=== PATIENT | female | born 1955 | race Caucasian/White ===

== ENCOUNTER → 2017-05-12 13:42 | Outpatient (CLI) | payer MEDICARE, MEDICAID, SELFPAY ==
--- NOTE | 2017-05-12 13:58 | MRI_ITS ---
STUDY: MRI LUMBAR SPINE WITHOUT CONTRAST REASON FOR EXAM: Female, 61 years old. Back and leg pain. Bilateral leg weakness. History of breast cancer with bone metastases TECHNIQUE: Standardized fat and water weighted pulse sequences were obtained in the coronal, sagittal and axial planes. COMPARISON: Moderate scan on August 13, 2016 FINDINGS: There is metastatic disease involving the vertebral bodies of T11, T12 and L1, with partial compression fracture deformity of T12 and L1 due to the metastatic disease. There is soft tissue extension anteriorly to the vertebral bodies of T12 and T11. There is extension of the metastatic disease into the spinal canal at T12 and L1, with compression of the conus medullaris and causing severe stenosis of the spinal canal (sagittal STIR series 5 image 9). The metastatic disease involves the bilateral iliopsoas muscles (axial T2 series 6 image 75). The patient is status post kyphoplasty at T11 There is an exaggerated lumbar lordosis. There is levoscoliosis. The conus medullaris terminates at the T12-L1 level L1-2: There is endplate spondylosis. There is bilateral facet arthrosis. Normal spinal canal and neural foramen. L2-3: There is endplate spondylosis. There is a Schmorl node in the superior endplate of L3. There is an annular bulge. There is bilateral facet arthrosis. Normal spinal canal. There is bilateral foraminal stenosis. L3-4: There is endplate spondylosis. There is disc space narrowing with an annular bulge. There is bilateral facet arthrosis. There is mild thecal sac stenosis. There is bilateral foraminal stenosis with impingement of the L3 nerve roots L4-5: There are Schmorl nodes in the corresponding endplates. There is bilateral facet arthrosis. There is disc desiccation. Normal spinal canal and neural foramen L5-S1: Normal endplates. Normal disc height, hydration and morphology. There is bilateral facet arthrosis. Normal central canal and bilateral lateral recesses. Normal bilateral intervertebral neural foramina. Normal visualized sacral ala. There is moderate paraspinal muscular atrophy. There is a splenomegaly MRI/Spine Lumbar (Routine) IMPRESSION: Metastatic disease with pathologic fractures as described above, involving the vertebral bodies of T12 and L1, with extension into the soft tissues anterior to the spine and also into the bilateral psoas muscles and extension into the spinal canal causing compression of the cauda equina and conus medullaris Levoscoliosis with exaggerated lumbar lordosis. Multilevel degenerative disease and multilevel facet arthrosis. L3-4 mild thecal sac stenosis. Bilateral foraminal stenosis with impingement of the L3 nerve roots N.B. : The above information has been verbally conveyed by Rashid Amador MD, FACR to Dr. Azam Valdez, Referring Physician, on 05/12/2017 15:24:02 (ET). Electronically Signed: Rashid Amador MD, FACR at 15:07 EST , Service support , N.B. : The above information has been verbally conveyed by Rashid Amador MD, FACR to Dr. Azam Valdez, Referring Physician, on 05/12/2017 15:24:02 (ET).
== END ==
PROVIDERS: Family Provider Family Medicine; PCP Family Medicine; Visit Provider Anesthesiology Pain Medicine
DX: M54.9 Dorsalgia, unspecified (principal); M79.606 Pain in leg, unspecified
CPT/HCPCS: 72148

== ENCOUNTER 2017-05-12 17:00 | Emergency (ER) | payer MEDICARE, MEDICAID, SELFPAY ==
[2017-05-12 17:01] VITALS: BP 135/62; PULSE 84; RESP 16; TEMP 37.1; O2SAT 98; BMI 20.9
--- NOTE | 2017-05-12 17:51 | ED.VISSUMM ---
- ER Visit Summary Date of Service: 05/12/17 Chief Complaint: Back pain History of Present Illness: The patient is a 61 F who has a history of breast cancer. Currently she is on tamoxifen therapy. Last year she had a pathologic fracture of her right femur. For the past 2 months the patient states that due to back pain she essentially has been in bed. States she has been able to stand but is extremely painful for her. She notes it is painful just even to sit up. She notes some occasional numbness over the right hip. She notes pain alternating between the right and left hips She has been urinating in a mars jar and states that she feels like she empties her bladder. She has been in pain management for back pain and due to increasing pain and now reported weakness in the legs the patient had an MRI performed today. This showed pathologic fractures of T12 and L1 with extension of the fractures into the soft tissues anterior to the spine and the bilateral psoas muscles as well as extension into the canal causing compression of the cauda equina and conus medullaris. Patient was sent to the emergency department for further treatment. Physical Examination: Afebrile vital signs are stable Gen: Well-nourished well-developed Head: Normocephalic atraumatic Eyes: Perrl EOMI ENT: TMs clear no rhinorrhea moist mucous membranes Neck: Supple no lymphadenopathy no JVD nontender CVS: Regular rate rhythm no murmurs normal S1-S2 Respiratory: No distress clear to auscultation bilaterally chest nontender Abdomen: Soft nontender nondistended normal bowel sounds no masses Back: Painful range of motion Extremity: Nontender no edema Skin: Normal color no rash Neuro: alert orientated ?3 CN II-XII intact there is no saddle anesthesia. There is normal perineal sensation and rectal tone. Patellar reflex is normal. Psych: Normal affect normal mood Test Results: MRI was reviewed. Basic blood work obtained. She is not neutropenic. Potassium 3.1. Urinalysis 10-25 white cells without bacteria. Lactic acid is 3.1. This has an unclear etiology. Emergency Department Course and Treatment: IV was established and the patient received fluids, Decadron, Dilaudid, and Zofran. I spoke with radiation oncology who is aware of the patient. Plan is to transfer to [facility]. Patient was asked to urinate and could not. Straight cath was performed and only 40 cc came out. At this point I do not see obvious evidence of cauda equina. Impression: 1. Metastatic breast cancer 2. Pathologic fractures of T12 and L1 with resultant cauda equina compression This note was generated with [employer] dictation software. It may contain incorrect words, spelling, and punctuation that were not noted in review of the chart prior to signing ED Disposition - Plan for ED Patient: Chief Complaint: Back Referrals: Liban Gomez DO [Primary Care Provider] -
[2017-05-12] MEDS: 0.9% Normal Saline 1,000 ML 150 ML IV (18:02)
[2017-05-12] MEDS: HYDROmorphone 1 MG/ML Syringe IV ×2 (18:05→20:32)
[2017-05-12] MEDS: Ondansetron 4 MG/2 ML Vial IV (18:05)
[2017-05-12 18:21] LABS: Bacteria 0 SEEN /hpf (None Seen); Mucous, Urine 0 SEEN /hpf (<or=2+)
[2017-05-12 18:24] LABS: Hematocrit 29.8 % (37-47); Hemoglobin 9.6 g/dl (12.0-15.0); Mean Corp Hgb Conc 32.2 g/gl (32-36); Mean Corpuscular Hgb 28.2 pg (27.0-32.0); Mean Corpuscular Volume 87.4 fL (81-99); Mean Platelet Vol. 8.7 fl (6.2-12.0); Platelet Count 222 K/mm3 (150-450); RBC Distribution Width CV 14.6 % (11.6-14.6); RBC Distribution Width SD 44.6 fl (35.1-43.9); Red Blood Count 3.41 M/mm3 (4.2-5.4); White Blood Count 4.9 K/mm3 (4.4-11.0)
[2017-05-12 18:25] LABS: Scan Indicated on CBC? Y/N NO
[2017-05-12 18:26] LABS: Color, Urine Yellow (Yellow); Glucose, Dipstick Normal (Normal); Ketone-Dipstick 5 mg/dl (Negative); Leukocyte Esterase-Dipstick 100 /ul (Negative); Nitrite-Dipstick Negative (Negative); Occult Blood-Urine 10 /ul (Negative); Protein-Dipstick 30 mg/dl (Negative); Urine Clarity Sl. Cloudy (Clear); Urine Urobilinogen 8 mg/dl (Normal)
[2017-05-12 18:33] LABS: Urine Bilirubin Dipstick 1 mg/dL (Negative)
[2017-05-12 18:34] LABS: White Blood Cells 10-25 SEEN /hpf (0-5)
[2017-05-12 18:35] LABS: Amorphous Sediment 1+ URATE; Calcium Oxalate Crystals Ur RARE /hpf (<or=2+); Red Blood Cells-Urine 0-5 SEEN /hpf (0-5); Squamous Epithelial Cells - UA 0-5 SEEN /hpf (5-10); Transitional Epithelial - Ur 0-5 SEEN /hpf (0-5)
[2017-05-12 18:35] LABS: Partial Thromboplast Time 31.6 Seconds (24.1-36.2); Prothrombin Time (Protime)PT. 13.1 SECONDS (11.7-14.9)
[2017-05-12 18:36] LABS: Albumin, Serum 2.8 g/dL (3.2-5.0); BUN 15 mg/dL (7-18); BUN/Creat Ratio 13.3 RATIO (10-20); Creatinine, Serum 1.13 mg/dL (0.55-1.02); EST Glomerular Filtration Rate 52 mL/min (>60); Est Glom Filt Rate - Afr Amer 63 mL/min (>60); Estimated Creatinine Clearance 56.16 ml/min; Glucose 96 mg/dL (70-110); Protein, Total 7.3 g/dL (6.4-8.2)
[2017-05-12 18:37] LABS: ALB/GLOB Ratio 0.6 RATIO (0.9-2.4); AST(SGOT) 46 U/L (15-37); Alanine Aminotransfer ALT/SGPT 19 U/L (13-56); Alkaline Phosphatase 81 U/L (45-117); Anion Gap 7 (5-15); Calcium,Total 8.8 mg/dL (8.5-10.1); Chloride 105 mmol/L (98-107); Globulin 4.5 g/dL (2.2-4.2); Potassium 3.1 mmol/L (3.5-5.1); Sodium Level 141 mmol/L (136-145)
[2017-05-12 19:10] LABS: Lactic Acid 3.1 mmol/L (0.4-2.0)
--- NOTE | 2017-05-12 19:10 | ED.RN ---
lactic 3.[address] called [address] lab[address] dr duran aware
[2017-05-12 19:27] VITALS: BP 107/64; PULSE 68; RESP 16; O2SAT 96
--- NOTE | 2017-05-12 19:56 | ED.RN ---
[facility] conservation coordinator called and stated the pt is accepted under dr inge wallis and no report need called.pt is to be transported to [facility] emergency room.
--- NOTE | 2017-05-12 20:03 | ED.RN ---
dr duran aware of transferr and accepting md of dr alcazar.
[2017-05-12 20:35] VITALS: BP 96/72; PULSE 65; RESP 16; O2SAT 99
[2017-05-12 22:17] LABS: Reflex Lactate? Y
== END 2017-05-12 20:37 | disposition short-term general hospital (02) ==
LOC: ED 18:21
PROVIDERS: Emergency Provider Emergency Medicine; Family Provider Family Medicine; PCP Family Medicine
DX: C50.919 Malignant neoplasm of unspecified site of unspecified female breast (principal); M84.48XA Pathological fracture, other site, initial encounter for fracture; Z87.311 Personal history of (healed) other pathological fracture; Z79.899 Other long term (current) drug therapy; M79.606 Pain in leg, unspecified; M54.9 Dorsalgia, unspecified
CPT/HCPCS: 72148; 80053; 81001; 83605; 85027; 85610; 85730; 96361; 96374; 96375; 96376; 99285; J7030; P9612; J2405

== ENCOUNTER → 2018-01-11 11:32 | Outpatient (CLI) | payer MEDICARE, MEDICAID, SELFPAY ==
--- NOTE | 2018-01-11 11:40 | CT_ITS ---
STUDY: CT CHEST WITH CONTRAST REASON FOR EXAM: Female, 62 years old. MEDIASTINAL ADENOPATHY. HX OF BREAST CNACER WITH METS TO BRAIN AND BONE. THORACIC RODDING RADIATION DOSAGE (If Supplied By Facility): CTDIvol = ( 13.25 ) mGy, DLP = ( 328.61 ) mGycm TECHNIQUE: Transaxial imaging was performed following intravenous administration of 100ML ml of Isovue 300 contrast material. Individualized dose optimization techniques were used for this CT. COMPARISON: None. FINDINGS: There is hyperinflation of the lungs consistent with chronic obstructive lung disease (COPD). Subpleural interstitial thickening is seen in the right middle lobe and anterior segment of right upper lobe most likely due to prior radiation. There is no demonstrated pleural abnormality. Normal heart and pericardium. There is a borderline enlarged lymph node in the anterior mediastinum measures approximately 1.6 x 1.1 cm has nonspecific appearance. Normal hilar regions. Normal enhanced pulmonary arteries. Normal aorta arch and descending thoracic aorta. Lytic lesions are seen in the vertebral bodies of T12 and L1 consistent with metastases. Bone cement is seen in the vertebral body of T11. Hardware is seen at T8-T9 and T10 extending to the upper lumbar spine is in good position. There is severe atrophy of the pancreas. CT/Chest WITH Contrast IMPRESSION: There is a borderline enlarged lymph node in the anterior mediastinum measures approximately 1.6 x 1.1 cm has nonspecific appearance. Electronically Signed: Martinez Ruiz MD at 12:36 EDT Tel , Service support ,
[2018-01-11 12:11] LABS: CREATININE FINGERSTICK 0.6 mg/dL (0.55-1.02); EGFR FINGERSTICK > 60.0000 mL/min (>60)
== END ==
PROVIDERS: Family Provider Family Medicine; PCP Family Medicine; Referring Provider Internal Medicine Critical Care Medicine; Visit Provider Internal Medicine Critical Care Medicine
DX: C50.912 Malignant neoplasm of unspecified site of left female breast (principal); R59.0 Localized enlarged lymph nodes
CPT/HCPCS: 71260; Q9967

== ENCOUNTER 2018-01-28 15:01 | Inpatient (IN) | payer MEDICARE, SELFPAY ==
[2018-01-28 15:01] VITALS: BP 117/69; PULSE 71; RESP 18; TEMP 37.3; O2SAT 99; BMI 21.1
--- NOTE | 2018-01-28 15:17 | RAD_ITS ---
STUDY: X-RAY - RIGHT FOOT CLINICAL: Female, 62 years old. Injury. Evaluate for foreign body (glass). TECHNIQUE: 3 view(s) of the foot. COMPARISON: None. FINDINGS: There is generalized osteopenia. There is superior and inferior calcaneal spurs. Normal visualized subtalar, talonavicular, calcaneocuboid, tarsal and tarsometatarsal articulations. Normal metatarsi. There is osteoarthrosis of the metatarsophalangeal and interphalangeal joints with hammertoe deformities. The soft tissue structures are unremarkable. No radiopaque foreign body is present. RAD/Foot min 3 Views IMPRESSION: Osteoarthritic changes with no radiopaque foreign body identified. Electronically Signed: Brian Hogan MD at 15:56 EDT , Service support ,
[2018-01-28 15:59] LABS: Absolute Lymphocyte Count 0.52 X10^3/ul (0.83-4.51); Absolute Neutrophil Count 4.8 X10^3/uL (2.0-7.7); Basophil# 0.01 X10^3/uL; Basophil% 0.2 % (0-1); Eosinophil# 0.07 X10^3/uL; Eosinophils% 1.3 % (0-5); Hematocrit 31.8 % (37-47); Hemoglobin 10.2 g/dl (12.0-15.0); Lymphocyte # 0.52 X10^3/ul (4.0); Lymphocyte % 9.3 % (19-41); Mean Corp Hgb Conc 32.1 g/gl (32-36); Mean Corpuscular Hgb 32.1 pg (27.0-32.0); Mean Platelet Vol. 8.3 fl (6.2-12.0); Monocyte# 0.19 X10^3/uL; Monocyte% 3.4 % (0-10); Neutrophil # 4.78 X10^3/uL (2.7-7.7); Neutrophil % 85.3 % (47-70); Platelet Count 179 K/mm3 (150-450); RBC Distribution Width CV 13.4 % (11.6-14.6); RBC Distribution Width SD 48.5 fl (35.1-43.9); Red Blood Count 3.18 M/mm3 (4.2-5.4); White Blood Count 5.6 K/mm3 (4.4-11.0)
[2018-01-28 16:00] LABS: Differential Indicated SCAN CRITERIA MET; POSITIVE COUNT NO; POSITIVE DIFFERENTIAL YES; POSITIVE MORPHOLOGY NO
[2018-01-28 16:05] LABS: Anion Gap 6 (5-15); BUN 9 mg/dL (7-18); BUN/Creat Ratio 11.7 RATIO (10-20); Calcium,Total 7.9 mg/dL (8.5-10.1); Chloride 104 mmol/L (98-107); Creatinine, Serum 0.77 mg/dL (0.55-1.02); EST Glomerular Filtration Rate 81 mL/min (>60); Est Glom Filt Rate - Afr Amer 97 mL/min (>60); Estimated Creatinine Clearance 79.74 ml/min; Glucose 70 mg/dL (74-106); Potassium 3.8 mmol/L (3.5-5.1); Sodium Level 137 mmol/L (136-145)
[2018-01-28 16:23] LABS: Differential Comment SCANNED
--- NOTE | 2018-01-28 16:34 | ED.VISSUMM ---
- ER Visit Summary Date of Service: 01/28/18 Chief Complaint: Right foot pain History of Present Illness: The patient is a 62 F who presents with right foot pain. 2 days ago she thought she stepped on a small piece of glass. She is a needle and felt something hard there but was uncertain if she removed it or not. Today she developed increased pain redness and swelling of the right foot. The nurse saw her at her assisted living and advised that she be evaluated here in the emergency department. She has no systemic symptoms. No fevers chest pain shortness of breath nausea vomiting diarrhea. She is not diabetic. She does have a history of metastatic breast cancer and chronic back pain. Physical Examination: Afebrile temperature 99.1 vitals unremarkable Moist mucous membranes Heart regular rate and rhythm Lungs clear There is edema and erythema of the right foot. It is hot to the touch. The erythema extends along the posterior medial leg to about the knee. There is a small open wound on the heel. There is no drainage. No fluctuance. No palpable foreign body. Test Results: Foot x-ray shows no foreign body. I also performed a [id number] ultrasound did not appreciate any obvious foreign body. Labs unremarkable except anemia. Emergency Department Course and Treatment: Patient clinically appears well with stable vitals. She does not have leukocytosis. However I am worried about the rapid progression of her cellulitis and the fact that it extends from the foot to about the level of the knee. Therefore I did feel hospitalization appropriate. Patient was given IV Unasyn here. She was discussed with hospitalist and will be admitted. Treatment Plan: [] Disposition: Admit Impression: Cellulitis This note was generated with [employer] dictation software. It may contain incorrect words, spelling, and punctuation that were not noted in review of the chart prior to signing ED Disposition - Plan for ED Patient: Chief Complaint: Cellulitis Referrals: Liban Gomez DO [Primary Care Provider] -
[2018-01-28 17:33] VITALS: BP 94/54; PULSE 75; RESP 16; O2SAT 98
[2018-01-28 17:45] VITALS: BMI 21.9; BMI 22.0
[2018-01-28 18:00] VITALS: PULSE 60; RESP 18; O2SAT 93
[2018-01-28 18:46] VITALS: BP 111/59; PULSE 56; RESP 18; TEMP 37.2; O2SAT 94
[2018-01-28] MEDS: oxyCODONE 5 MG Tablet PO (19:22)
[2018-01-28] MEDS: Enoxaparin 40 MG/0.4 ML Syringe SC (19:23)
[2018-01-28] MEDS: Gabapentin 300 MG Capsule PO (19:23)
--- NOTE | 2018-01-28 20:00 | PCM.HP.STD ---
Problem List (1) Compression fracture of body of thoracic vertebra Status: Chronic (2) Carcinoma of breast metastatic to bone Status: Chronic Qualifiers: (3) Anemia Status: Chronic Qualifiers: (4) Dyslipidemia Status: Chronic (5) Cellulitis Status: Acute Qualifiers: Site of cellulitis: extremity Site of cellulitis of extremity: lower extremity Laterality: right Qualified Code(s): L03.115 - Cellulitis of right lower limb History of Present Illness Date of Admission: 01/28/18 Chief Complaint: Cellulitis The patient is a 62 year old F with a PMH as above presenting with 2 days of foot pain and 1 days of swelling and redness. [place] the [place] and though she stepped on something and used a non-sterile needle to try and dig it out. She denies removing anything 2 days ago when this happened. Today she woke up and noticed that her foot was red and swollen starting at the area she dug into with a needle. The pain goes up her anterior garcia 4-5 inches. She came to the ER where she was started on unasyn and admitted for observation given the pain, and the rapid progression of symptoms. She was otherwise stable, afebrile, no chills. No leukocytosis. 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 per cath 10/22 Hx of breast cancer (Chronic) Medical History: Medical History (Last Reviewed 01/11/18 @ 10:09 by Yadira Garcia) Compression fracture of body of thoracic vertebra (Chronic) M48.54XA Carcinoma of breast metastatic to bone (Chronic) C50.919, C79.51 Anemia (Acute) D64.9 Osteoarthritis of knee, unspecified (Acute) M17.9 Dyslipidemia (Chronic) E78.5 NSTEMI (non-ST elevated myocardial infarction) (Chronic) I21.4 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 per cath 10/22 Hx of breast cancer (Chronic) Z85.3 Chest pain (Acute) R07.9 Allergies povidone-iodine [From Betadine] Adverse Reaction (Severe, Verified 01/28/18 15:03) Other BROKE OUT INTO BLISTERS soap [From Betadine] Adverse Reaction (Severe, Verified 01/28/18 15:03) Other BROKE OUT INTO BLISTERS Home Medications: Ambulatory Orders Medication Instructions Recorded melatonin 3 mg tablet 3 mg PO HS PRN 01/06/18 omeprazole 40 mg capsule,delayed 40 mg PO DAILY 01/06/18 release sennosides 8.6 mg tablet 17.2 mg PO LUNCH tab 01/06/18 oxycodone ER 40 mg tablet,crush 40 mg PO Q8H 01/11/18 resistant,extended release 12 hr Gabapentin [Neurontin] 300 mg PO TID 01/28/18 Ibranch 1 tab PO DAILY 01/28/18 Surgical History: Surgical History (Last Reviewed 01/11/18 @ 10:09 by Yadira Garcia) History of tonsillectomy and adenoidectomy (Resolved) Z98.890 Aftercare following left ankle joint replacement surgery (Resolved) Z47.1, Z96.662 History of partial mastectomy of both breasts (Resolved) Z90.13 History of breast biopsy (Resolved) Z98.890 Surgical History: - - Left Achilles tendon surgery, lumpectomy of both breasts Psychiatric History: No pertinent psych hx 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 Smoking Status: Former smoker - *Family History Maternal Family History: Family History (Last Reviewed 01/11/18 @ 10:09 by Yadira Garcia) Mother Hypertension COPD (chronic obstructive pulmonary disease) Father Cancer Grandmother Breast cancer Grandfather CVA (cerebral vascular accident) History Items: No pertinent history Paternal Family History: Family History (Last Reviewed 01/11/18 @ 10:09 by Yadira Garcia) Mother Hypertension COPD (chronic obstructive pulmonary disease) Father Cancer Grandmother Breast cancer Grandfather CVA (cerebral vascular accident) History Items: No pertinent history Sibling Family History: Family History (Last Reviewed 01/11/18 @ 10:09 by Yadira Garcia) Mother Hypertension COPD (chronic obstructive pulmonary disease) Father Cancer Grandmother Breast cancer Grandfather CVA (cerebral vascular accident) History Items: No pertinent history Review of Systems Constitutional: Denies: Chills, Fever, Weight Change HEENT: Denies: Head Aches, Sinus Congestion, Sinus Drainage Cardiovascular: Denies: Chest Pain, Palpitations Respiratory: Denies: Cough, Shortness of breath at rest, Sputum production Gastrointestinal: Denies: Abdominal Pain, Nausea, Vomiting Genitourinary: Denies: Dysuria Musculoskeletal: Denies: Joint Pain, Joint Tenderness Skin: Reports: - - redness, warmth, and an open sore on her heel on the right Neurological: Denies: Numbness, Tingling, Focal weakness Psychiatric: Denies: Anxiety, Depression, Homicidal Ideations, Suicidal Ideations Hematologic/ Lymphatic: Denies: Easy Bruising, Easy Bleeding VTE Information - Inpt Only VTE Present on Admission: No Patient Problems: Active and Suspected Problems (Last Reviewed 01/11/18 @ 10:09 by Yadira Garcia) Cellulitis (Acute) - Physical Exam General: Alert, Oriented x3, Cooperative HEENT: Atraumatic, PERRLA, EOMI, Normocephalic Neck: Supple, No JVD Lungs: Clear to auscultation, Normal air movement, No rhonchi, No wheeze, No rales Cardiovascular: Regular rate, Regular Rhythm, Normal S1, Normal S2, No murmurs Abdomen: Soft, Non Tender, Non-Distended, No Hepato-splenomegaly Extremities: No edema, Capillary Refill Less than 3 Seconds Skin: Ulcer/ Wound - on her right heel with surrouding erythema and lateral malleolar swelling. the erythema seems to be confined below the ankle at the moment Musculoskeletal: No Tenderness to Palpation of Joints or Extremities Neurological: Neuro grossly intact, Sensory exam intact to light touch and pain Psych/Mental Status: Normal Affect, Appropriate Vital Signs Temp Pulse Resp BP Pulse Ox 98.9 F 56 L 18 111/59 L 94 01/28/18 18:46 01/28/18 18:46 01/28/18 18:46 01/28/18 18:46 01/28/18 18:46 Oxygen Delivery Method Room Air Weight: 153 lb 0.013 oz Body Mass Index (BMI) 21.9 Laboratory Tests Past 24 Hrs 01/28/18 01/28/18 15:40 15:40 WBC 5.6 RBC 3.18 L Hgb 10.2 L Hct 31.8 L MCV 100.0 H MCH 32.1 H MCHC 32.1 RDW 13.4 RDW Differential 48.5 H Plt Count 179 MPV 8.3 Immature Gran % (Auto) 0.500 Neut % (Auto) 85.3 H Lymph % (Auto) 9.3 L [place] % (Auto) 3.4 Eos % (Auto) 1.3 Baso % (Auto) 0.2 Absolute Neuts (auto) 4.8 Absolute Lymphs (auto) 0.52 L Total Counted Not Reportable Differential Comment SCANNED Sodium 137 Potassium 3.8 Chloride 104 Carbon Dioxide 27.0 Anion Gap 6 BUN 9 Creatinine 0.77 Estim Creat Clear Calc 79.74 Est GFR (MDRD) Af Amer 97 Est GFR (MDRD) Non-Af 81 BUN/Creatinine Ratio 11.7 Glucose 70 L Calcium 7.9 L Assessment/Plan All Active Problems (Last Reviewed 01/11/18 @ 10:09 by Yadira Garcia) Cellulitis (Acute) History of tonsillectomy and adenoidectomy (Resolved) Aftercare following left ankle joint replacement surgery (Resolved) History of partial mastectomy of both breasts (Resolved) History of breast biopsy (Resolved) Osteoarthritis of knee, unspecified (Acute) Chest pain (Acute) Breast cancer (Resolved) 1. Right LE cellulitis - Since this appears to be strep in origin, will start with ancef 2gm TID - If there is significant improvement will plan on DC in the am on keflex - Otherwise may need to broaden coverage - Will consult wound care - At the moment no concern for osteo 2. Metastatic breast cancer to the lung, pancreas and spine/Chronic pain - She is on Ibranch at home - Will hold for now and monitor - Oxycontin 40 mg BID and oxycodone 5-10 mg q4 hr for breakthrough and will adjust as necessary - Gabapentin for pain 3. GERD - stable - c/w PPI 4. Insomnia - stable - c/w melatonin DVT: Lovenox Diet: Regular Code Visit OBSV E&M: 69432 Initial observation care L3
[2018-01-28 20:20] VITALS: BP 98/61; PULSE 81; RESP 18; TEMP 37.4; O2SAT 100
[2018-01-28] MEDS: MELATONIN 3 MG TABLET PO (22:11)
[2018-01-28] MEDS: Cefazolin 2 GM in 0.9% Normal Saline 100 ML IV (22:11)
[2018-01-29] VITALS (9 sets, daily range): BP systolic 80–114; BP diastolic 51–61; PULSE 75–84; RESP 16–18; TEMP 37–37.9; O2SAT 95–100
[2018-01-29] MEDS: oxyCODONE 5 MG Tablet PO ×3 (02:01→20:46)
[2018-01-29] MEDS: 0.9% Normal Saline 1,000 ML 999 ML IV ×2 (03:00→04:05)
[2018-01-29 04:10] LABS: Absolute Lymphocyte Count 0.46 X10^3/ul (0.83-4.51); Absolute Neutrophil Count 2.3 X10^3/uL (2.0-7.7); Basophil# 0.01 X10^3/uL; Basophil% 0.3 % (0-1); Eosinophil# 0.07 X10^3/uL; Eosinophils% 2.3 % (0-5); Hematocrit 26.7 % (37-47); Hemoglobin 8.5 g/dl (12.0-15.0); Lymphocyte # 0.46 X10^3/ul (4.0); Lymphocyte % 15.1 % (19-41); Mean Corp Hgb Conc 31.8 g/gl (32-36); Mean Corpuscular Hgb 32.7 pg (27.0-32.0); Mean Corpuscular Volume 102.7 fL (81-99); Mean Platelet Vol. 8.4 fl (6.2-12.0); Monocyte# 0.17 X10^3/uL; Monocyte% 5.6 % (0-10); Neutrophil # 2.31 X10^3/uL (2.7-7.7); Platelet Count 189 K/mm3 (150-450); RBC Distribution Width CV 12.8 % (11.6-14.6); RBC Distribution Width SD 46.2 fl (35.1-43.9)
[2018-01-29 04:12] LABS: Differential Indicated SCAN CRITERIA MET; POSITIVE COUNT NO; POSITIVE DIFFERENTIAL YES; POSITIVE MORPHOLOGY NO
[2018-01-29 04:17] LABS: Anion Gap 7 (5-15); BUN 9 mg/dL (7-18); BUN/Creat Ratio 15.5 RATIO (10-20); Calcium,Total 7.4 mg/dL (8.5-10.1); Chloride 107 mmol/L (98-107); Creatinine, Serum 0.58 mg/dL (0.55-1.02); EST Glomerular Filtration Rate 112 mL/min (>60); Est Glom Filt Rate - Afr Amer 135 mL/min (>60); Estimated Creatinine Clearance 108.75 ml/min; Glucose 102 mg/dL (74-106); Potassium 4.1 mmol/L (3.5-5.1); Sodium Level 139 mmol/L (136-145)
[2018-01-29 04:20] LABS: Lactic Acid 0.8 mmol/L (0.4-2.0)
[2018-01-29 04:33] LABS: Differential Comment SCANNED
[2018-01-29] MEDS: 0.9% Normal Saline 1,000 ML 100 ML IV (05:12)
[2018-01-29] MEDS: Cefazolin 2 GM in 0.9% Normal Saline 100 ML IV ×3 (05:13→23:01)
[2018-01-29] MEDS: Gabapentin 300 MG Capsule PO ×3 (07:44→17:27)
--- NOTE | 2018-01-29 09:03 | PN_ITS ---
Patient Problems: Active and Suspected Problems (Last Reviewed 01/11/18 @ 10:09 by Yadira Garcia) Cellulitis (Acute) Subjective: Became hypotensive overnight and given fluid boluses and is currently stable feels well Vitals/I&O's: Vital Signs Temp Pulse Resp BP Pulse Ox 99.0 F 80 16 97/59 L 99 01/29/18 04:00 01/29/18 07:24 01/29/18 04:00 01/29/18 04:00 01/29/18 04:00 Oxygen Delivery Method Room Air Weight: 153 lb 0.013 oz Body Mass Index (BMI) 21.9 Intake and Output for Last 24 Hours 01/27/18 01/28/18 01/29/18 23:59 23:59 23:59 Intake Total 634 / 634 2087 / 2088 Output Total 1100 / 1100 100 / 100 Balance -466 / -466 1987 General: Alert, Oriented x3, Cooperative HEENT: Atraumatic, PERRLA, EOMI, Normocephalic Neck: Supple, No JVD Lungs: Clear to auscultation, Normal air movement, No rhonchi, No wheeze, No rales Cardiovascular: Regular rate, Regular Rhythm, Normal S1, Normal S2, No murmurs Abdomen: Soft, Non Tender, Non-Distended, No Hepato-splenomegaly Extremities: No edema, Capillary Refill Less than 3 Seconds Skin: Ulcer/ Wound - on her right heel with surrouding erythema and lateral malleolar swelling. the erythema is significantly improved Laboratory Results 01/28/18 15:40: WBC 5.6, RBC 3.18 L, Hgb 10.2 L, Hct 31.8 L, MCV 100.0 H, MCH 32.1 H, MCHC 32.1, RDW 13.4, RDW Differential 48.5 H, Plt Count 179, MPV 8.3, Immature Gran % (Auto) 0.500, Neut % (Auto) 85.3 H, Lymph % (Auto) 9.3 L, [place] % (Auto) 3.4, Eos % (Auto) 1.3, Baso % (Auto) 0.2, Absolute Neuts (auto) 4.8, Absolute Lymphs (auto) 0.52 L, Total Counted Not Reportable, Differential Comment SCANNED 01/28/18 15:40: Sodium 137, Potassium 3.8, Chloride 104, Carbon Dioxide 27.0, Anion Gap 6, BUN 9, Creatinine 0.77, Estim Creat Clear Calc 79.74, Est GFR (MDRD) Af Amer 97, Est GFR (MDRD) Non-Af 81, BUN/Creatinine Ratio 11.7, Glucose 70 L, Calcium 7.9 L 01/29/18 03:28: WBC 3.0 L, RBC 2.60 L, Hgb 8.5 L, Hct 26.7 L, MCV 102.7 H, MCH 32.7 H, MCHC 31.8 L, RDW 12.8, RDW Differential 46.2 H, Plt Count 189, MPV 8.4, Immature Gran % (Auto) 0.700, Neut % (Auto) 76.0 H, Lymph % (Auto) 15.1 L, [place] % (Auto) 5.6, Eos % (Auto) 2.3, Baso % (Auto) 0.3, Absolute Neuts (auto) 2.3, Absolute Lymphs (auto) 0.46 L, Total Counted Not Reportable, Differential Comment SCANNED 01/29/18 03:28: Sodium 139, Potassium 4.1, Chloride 107, Carbon Dioxide 25.0, Anion Gap 7, BUN 9, Creatinine 0.58, Estim Creat Clear Calc 108.75, Est GFR (MDRD) Af Amer 135, Est GFR (MDRD) Non-Af 112, BUN/Creatinine Ratio 15.5, Gl ucose 102, Calcium 7.4 L 01/29/18 03:28: Lactic Acid 0.8 Current Medications Enoxaparin Sodium (Lovenox) 40 mg SC DAILY@1000 [facility] Last Admin: 01/28/18 19:23 Dose: 40 mg Gabapentin (Neurontin) 300 mg PO TIDCM [facility] Last Admin: 01/29/18 07:44 Dose: 300 mg Cefazolin Sodium 2 gm/ Sodium (Chloride) 110 mls @ 150 mls/hr IV Q8 [facility] Last Admin: 01/29/18 05:13 Dose: 150 mls/hr Sodium Chloride () 1,000 mls @ 100 mls/hr IV .Q10H [facility] Last Admin: 01/29/18 05:12 Dose: 100 mls/hr Magnesium Hydroxide (Milk Of Magnesia) 30 ml PO DAILY PRN PRN PRN Reason: Constipation Melatonin (Melatonin) 3 mg PO QHS [facility] Last Admin: 01/28/18 22:11 Dose: 3 mg Oxycodone HCl (Oxyir) 5 - 10 mg PO Q4H PRN PRN PRN Reason: SEVERE PAIN ([id number]) Last Admin: 01/29/18 07:44 Dose: 10 mg Oxycodone HCl (Oxycontin) 40 mg PO BID [facility] Last Admin: 01/28/18 22:11 Dose: 40 mg Pantoprazole Sodium (Protonix) 40 mg PO DAILY [facility] Senna/Docusate Sodium (Senokot-S, Anisa-Colace) 2 tablet PO DAILY [facility] Sodium Chloride () 5 - 30 ml IV UD PRN PRN Reason: SALINE FLUSH Medical Necessity - Tobacco Use Smoking Status: Former smoker Assessment/Plan All Active Problems (Last Reviewed 01/11/18 @ 10:09 by Yadira Garcia) Cellulitis (Acute) History of tonsillectomy and adenoidectomy (Resolved) Aftercare following left ankle joint replacement surgery (Resolved) History of partial mastectomy of both breasts (Resolved) History of breast biopsy (Resolved) Osteoarthritis of knee, unspecified (Acute) Chest pain (Acute) Breast cancer (Resolved) 1. Right LE cellulitis - Since this appears to be strep in origin, will start with ancef 2gm TID - Will keep anpther day because of the hypotension, though not septic, d/t the narcotics necessary for pain control - Swelling and erythema much improved - consult wound care - At the moment no concern for osteo 2. Metastatic breast cancer to the lung, pancreas and spine/Chronic pain - She is on Ibranch at home - Will hold for now and monitor - Oxycontin 40 mg BID and oxycodone 5-10 mg q4 hr for breakthrough and will a djust as necessary - Gabapentin for pain 3. GERD - stable - c/w PPI 4. Insomnia - stable - c/w melatonin DVT: Lovenox Diet: Regular Code Visit OBSV E&M: 97787 Initial observation care L2
[2018-01-29] MEDS: Pantoprazole Sodium 40 MG Tablet PO (10:05)
[2018-01-29] MEDS: Enoxaparin 40 MG/0.4 ML Syringe SC (10:06)
[2018-01-29] MEDS: Acetaminophen 325 MG Tablet 650 MG PO (12:11)
[2018-01-29] MEDS: 0.9% Normal Saline 1,000 ML 200 ML IV ×2 (13:20→18:12)
[2018-01-29] MEDS: MELATONIN 3 MG TABLET PO (23:00)
[2018-01-30] MEDS: 0.9% Normal Saline 1,000 ML 200 ML IV ×3 (00:58→12:13)
[2018-01-30 01:06] VITALS: BP 108/65; PULSE 75; RESP 18; TEMP 37.6; O2SAT 100
[2018-01-30 05:57] VITALS: BP 93/55; PULSE 86; RESP 18; TEMP 37.7; O2SAT 98
[2018-01-30] MEDS: Cefazolin 2 GM in 0.9% Normal Saline 100 ML IV (05:59)
[2018-01-30] MEDS: oxyCODONE 5 MG Tablet PO (06:07)
[2018-01-30] MEDS: Gabapentin 300 MG Capsule PO ×2 (07:46→12:15)
--- NOTE | 2018-01-30 07:47 | NURSING ---
PT RESTING QUIETLY IN BED WITH EYES CLOSED, RESP EASY
[2018-01-30 08:12] LABS: Absolute Lymphocyte Count 0.21 X10^3/ul (0.83-4.51); Absolute Neutrophil Count 2.1 X10^3/uL (2.0-7.7); Eosinophil# 0.04 X10^3/uL; Eosinophils% 1.7 % (0-5); Hematocrit 27.2 % (37-47); Hemoglobin 8.6 g/dl (12.0-15.0); Lymphocyte # 0.21 X10^3/ul (4.0); Lymphocyte % 8.8 % (19-41); Mean Corp Hgb Conc 31.6 g/gl (32-36); Mean Corpuscular Hgb 32.7 pg (27.0-32.0); Mean Corpuscular Volume 103.4 fL (81-99); Mean Platelet Vol. 8.5 fl (6.2-12.0); Monocyte# 0.09 X10^3/uL; Monocyte% 3.8 % (0-10); Neutrophil # 2.05 X10^3/uL (2.7-7.7); Neutrophil % 85.3 % (47-70); Platelet Count 178 K/mm3 (150-450); RBC Distribution Width CV 12.8 % (11.6-14.6); RBC Distribution Width SD 46.6 fl (35.1-43.9); Red Blood Count 2.63 M/mm3 (4.2-5.4); White Blood Count 2.4 K/mm3 (4.4-11.0)
[2018-01-30 08:13] LABS: Differential Indicated SCAN CRITERIA MET; POSITIVE COUNT NO; POSITIVE DIFFERENTIAL YES; POSITIVE MORPHOLOGY NO
[2018-01-30 10:00] VITALS: BP 90/52; PULSE 81; RESP 18; TEMP 37.6; O2SAT 96
[2018-01-30] MEDS: Enoxaparin 40 MG/0.4 ML Syringe SC (10:57)
[2018-01-30] MEDS: Senna/Docusate Sodium 1 Tablet 2 TABLET PO (10:58)
[2018-01-30] MEDS: Pantoprazole Sodium 40 MG Tablet PO (10:58)
[2018-01-30 11:44] LABS: Platelet Estimate A (ADEQ); Red Cell Morphology NORM C+C NORMAL (NORM C&C)
--- NOTE | 2018-01-30 13:56 | CASEMGMT ---
Social Work Note Pt is being listed as being from [facility]. LORETTA met with pt to confirm discharge plans. SW introduced self and role at [facility]. Pt is alert and oriented x4. Pt confirms that she is from [facility] skilled and she has only been there for about a week. Pt states that her plan is to return skilled at discharge and eventually move into halfway placement at [facility]. LORETTA placed a call to Lina at [facility]. Lina confirms that pt is from [facility] and pt will need pre-cert to return. LORETTA faxed clinicals to [facility]. LORETTA ordered PT/OT for pt. Plan: [facility] skilled pending pre-cert Aleyda Yang BUFFING WHEEL OPERATOR, WELL PULLER HEAD
[2018-01-30 14:50] VITALS: BP 101/62; PULSE 83; RESP 18; TEMP 37.4; O2SAT 97
[2018-01-30 16:08] VITALS: BP 101/62; PULSE 83; RESP 18; TEMP 37.4; O2SAT 97
--- NOTE | 2018-01-30 16:09 | DCINST_ITS ---
- Discharge Diagnoses Current Active Problems: Current Active and Chronic Problems (Last Reviewed 01/11/18 @ 10:09 by Yadira Garcia) Cellulitis (Acute) You will use the following diet at home:: Regular Your food should be the consistency of: Regular Your liquids should be the consistency of: Regular/Thin Call your doctor if you observe: Fever of 101 or Higher, Swelling in the ankles, Uncontrolled pain Allergies/Adverse Reactions: Allergies povidone-iodine [From Betadine] Adverse Reaction (Severe, Verified 01/28/18 15:03) Other BROKE OUT INTO BLISTERS soap [From Betadine] Adverse Reaction (Severe, Verified 01/28/18 15:03) Other BROKE OUT INTO BLISTERS Medications to take at Discharge melatonin 3 mg tablet 3 mg PO HS PRN 01/06/18 omeprazole 40 mg capsule,delayed release 40 mg PO DAILY 01/06/18 sennosides 8.6 mg tablet 17.2 mg PO LUNCH tab 01/06/18 oxycodone ER 40 mg tablet,crush resistant,extended release 12 hr 40 mg PO Q8H 01/11/18 Gabapentin [Neurontin] 300 mg PO TID 01/28/18 Ibranch 1 tab PO DAILY 01/28/18 Cephalexin [Keflex] 500 mg PO Q6 #28 capsule 01/30/18 The following prescriptions were given: Cephalexin [Keflex] 500 mg PO Q6 #28 capsule Primary Care Physician: Liban Gomez DO [Primary Care Provider] - Please follow up with your Primary Care Physician in: in 3-5 days Test Results: Test results from this visit will be discussed in further detail at your follow- up appointment, if applicable.
--- NOTE | 2018-01-30 16:18 | DS.PCM_ITS ---
Discharge Date and Diagnosis - Problem List Patient Problems: Active and Suspected Problems (Last Reviewed 01/11/18 @ 10:09 by Yadira Garcia) Cellulitis (Acute) Date of Admission: 01/28/18 Date of Discharge: 01/30/18 - Primary Discharge Diagnosis Active and Suspected Problems (Last Reviewed 01/11/18 @ 10:09 by Yadira Garcia) Cellulitis (Acute) - Secondary Discharge Diagnosis Chronic Problems (Last Reviewed 01/11/18 @ 10:09 by Yadira Garcia) Compression fracture of body of thoracic vertebra (Chronic) Carcinoma of breast metastatic to bone (Chronic) Anemia (Chronic) Dyslipidemia (Chronic) NSTEMI (non-ST elevated myocardial infarction) (Chronic) 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 Consults: None Operations: None Procedures: None Summary of Care Provided: HPI: The patient is a 62 year old F with a PMH as above presenting with 2 days of foot pain and 1 days of swelling and redness. She was walking in the mall and though she stepped on something and used a non-sterile needle to try and dig it out. She denies removing anything 2 days ago when this happened. Today she woke up and noticed that her foot was red and swollen starting at the area she dug into with a needle. The pain goes up her anterior garcia 4-5 inches. She came to the ER where she was started on unasyn and admitted for observation given the pain, and the rapid progression of symptoms. She was otherwise stable, afebrile, no chills. No leukocytosis. Vital Signs - 24 hr Temp Pulse Resp BP BP Pulse Ox 01/30/18 14:50 99.4 F H 83 18 101/62 97 01/30/18 10:00 99.6 F H 81 18 90/52 L 96 01/30/18 05:57 99.8 F H 86 18 93/55 L 98 01/30/18 01:06 99.6 F H 75 18 108/65 100 01/29/18 20:40 98.6 F 75 18 114/58 L 100 01/29/18 17:24 75 86/51 L General: Alert, Oriented x3, Cooperative HEENT: Atraumatic, PERRLA, EOMI, Normocephalic Neck: Supple, No JVD Lungs: Clear to auscultation, Normal air movement, No rhonchi, No wheeze, No rales Cardiovascular: Regular rate, Regular Rhythm, Normal S1, Normal S2, No murmurs Abdomen: Soft, Non Tender, Non-Distended, No Hepato-splenomegaly Extremities: No edema, Capillary Refill Less than 3 Seconds Skin: Ulcer/ Wound - on her right heel with surrouding erythema and lateral malleolar swelling. the erythema is significantly improved Hospital Course: 1. Right LE cellulitis - She presented with redness and swelling after feeling like she had stepped on something that tried to dig it out with a needle. She was given a dose fo unasyn in the ER and then given ancef 2 gm TID. She had significant improvement in pain, erythema, and pain on the day of discharge. Will plan to DC on keflex 500 mg PO q6 hr for 7 days with outpatient PCP f/u. Intially there was some concern about her hypotension overnight, however when I evaluated her she was completely asymptomatic, and she stated that she always runs low in the 90's systolic, especially when she is sleeping. I did ask that she have close follow-up and to see if anyone could stay with her since she was wanting to go home so much that she refused the offer od SNF placement and therefore was not evaluated by PT/OT prior to DC. 2. Metastatic breast cancer to the lung, pancreas and spine/Chronic pain - Her pain was controlled and she was discharged on her home pain regimen now that her cellulitis was improving. I did not discharge her with any short acting narcotics. Patient Problems: Active and Suspected Problems (Last Reviewed 01/11/18 @ 10:09 by Yadira Garcia) Cellulitis (Acute) - Physical Exam Vital Signs Temp Pulse Resp BP Pulse Ox 99.4 F H 83 18 101/62 97 01/30/18 14:50 01/30/18 14:50 01/30/18 14:50 01/30/18 14:50 01/30/18 14:50 Oxygen Delivery Method Room Air Weight: 153 lb 0.013 oz Body Mass Index (BMI) 21.9 Intake and Output for Last 24 Hours 01/28/18 01/29/18 01/30/18 23:59 23:59 23:59 Intake Total 634 / 634 5805 / 5805 2762 / 2762 Output Total 1100 / 1100 1250 / 1250 1400 / 1400 Balance -466 / -466 4555 / 4555 1362 / 1362 Laboratory Tests Past 24 Hrs 01/30/18 06:20 WBC 2.4 L RBC 2.63 L Hgb 8.6 L Hct 27.2 L MCV 103.4 H MCH 32.7 H MCHC 31.6 L RDW 12.8 RDW Differential 46.6 H Plt Count 178 MPV 8.5 Immature Gran % (Auto) 0.400 Neut % (Auto) 85.3 H Lymph % (Auto) 8.8 L Roosevelt % (Auto) 3.8 Eos % (Auto) 1.7 Baso % (Auto) 0.0 Absolute Neuts (auto) 2.1 Absolute Lymphs (auto) 0.21 L Total Counted Not Reportable Differential Comment Diff Path Review May foll Platelet Estimate A RBC Morphology NORM C+C Call your doctor if you observe: Fever of 101 or Higher, Swelling in the ankles, Uncontrolled pain Home Medications: Medications to take at Discharge melatonin 3 mg tablet 3 mg PO HS PRN 01/06/18 omeprazole 40 mg capsule,delayed release 40 mg PO DAILY 01/06/18 sennosides 8.6 mg tablet 17.2 mg PO LUNCH tab 01/06/18 oxycodone ER 40 mg tablet,crush resistant,extended release 12 hr 40 mg PO Q8H 01/11/18 Gabapentin [Neurontin] 300 mg PO TID 01/28/18 Ibranch 1 tab PO DAILY 01/28/18 Cephalexin [Keflex] 500 mg PO Q6 #28 capsule 01/30/18 Following Prescrptions Were Given to Patient: Cephalexin [Keflex] 500 mg PO Q6 #28 capsule Primary Care Physician: Liban Gomez DO [Primary Care Provider] - Please follow up with your Primary Care Physician in: in 3-5 days Disposition: Asstd Living/Non-Skill NH Minutes spent on discharge:: 35 Patient Condition:: Good Medical Necessity - Tobacco Use Smoking Status: Former smoker Meaningful Use Info Meaningful Use Diagnoses (Choose all that apply): None applicable Code Visit Inpatient E&M: 80470 Disch Hosp
--- NOTE | 2018-01-30 16:27 | CASEMGMT ---
Social Work Note YOHANA Navarrete updated this worker that pt is from Assisted Living at [facility] and pt would like to return to Assisted Living side at discharge. LORETTA explained that [facility] is trying to get waiter/waitress captain. SW in to speak with pt and pt's daughter present in room. Pt gave this worker permission to speak to her in front of her daughter. Pt confirms that she is from Assisted Living at [facility] and just moved into assisted living side about a week ago. Pt states that she would like to return to her apartment on the assisted living side. SW explained that [facility] is trying to get waiter/waitress captain to receive PT/OT at discharge. Pt states that she was independent before and her wound is cleared up enough that she feels she is able to return to assisted living side without skilled services. Pt states that she would prefer to return to her apartment and would only be agreeable if she can get skilled services in her apartment. SW informed pt that this worker will check with Lina at [facility]. LORETTA placed a call to Lina in admissions at [facility]. Lina states that pt would need to be on skilled side temporary for skilled services. LORETTA updated Lina that pt is denying skilled services and would like to return to her apartment on the skilled side. Lina states that she would need the physician's approval that pt doesn't need skilled and pt is able to return to assisted living side. LORETTA spoke with physician who is agreeable to pt returning to assisted living side without skilled services. Physician states he will work on completing discharge paperwork. SW in to update pt that the physician will be discharging pt back to assisted living side. Pt states that her daughter will be transporting her. LORETTA updated YOHANA Navarrete that pt will be discharged back to [facility]. LORETTA placed a call to [facility] and spoke with Ayse who states she will relay the message to Lina that the physician is agreeable for pt to discharge back to Assisted Living side today. Green sheet on chart. Plan: Pt to return to [facility]isted [facility] side with pt's daughter transporting Aleyda Yang NAIL POLISH BRUSH MACHINE FEEDER, RELAY MAN
[2018-02-01 15:25] LABS: Pathologist Review Reviewed
== END 2018-01-30 16:34 | disposition home or self-care (01) | DRG 603 ==
LOC: ED 15:43 → MS3 17:39
PROVIDERS: Hospitalist; Admitting Provider Family Medicine; Emergency Provider Emergency Medicine; Family Provider Family Medicine; PCP Family Medicine; Visit Provider Family Medicine
DX: L03.115 Cellulitis of right lower limb (principal); C78.00 Secondary malignant neoplasm of unspecified lung; C78.89 Secondary malignant neoplasm of other digestive organs; C79.51 Secondary malignant neoplasm of bone; C50.919 Malignant neoplasm of unspecified site of unspecified female breast; G89.3 Neoplasm related pain (acute) (chronic)
CPT/HCPCS: 36415; 73630; 80048; 83605; 85025; 87040; 99282; J7030; A4216; J0295

== ENCOUNTER 2018-02-08 17:53 | Emergency (ER) | payer MEDICARE, SELFPAY ==
[2018-02-08 17:53] VITALS: BP 138/85; PULSE 87; RESP 16; TEMP 36.8; BMI 22.9
--- NOTE | 2018-02-08 18:20 | RAD_ITS ---
STUDY: X-RAY - RIGHT FOOT CLINICAL: Female, 62 years old. Swelling. Laceration. TECHNIQUE: 4 view(s) of the foot. COMPARISON: None. FINDINGS: There is no evidence of fracture or dislocation. There are mild degenerative changes in the midfoot. There are no definite radiographic findings of osteomyelitis. There is diffuse soft tissue swelling. There are no radiodense foreign bodies. RAD/Foot min 3 Views IMPRESSION: No fracture or dislocation. Mild degenerative changes. Diffuse soft tissue swelling. Electronically Signed: Osvaldo Vicente, at 19:20 EDT Tel , Service support ,
--- NOTE | 2018-02-08 18:39 | ED.VISSUMM ---
- ER Visit Summary Date of Service: 02/08/18 Chief Complaint: Right foot wound History of Present Illness: The patient is a 62 F presenting for evaluation secondary to changes in the patient's right foot wound. Patient has a recent history of having cellulitis of the right foot with admission to the hospital. Patient was discharged on the of this month and has been on a course of Keflex. Patient states that a family member was checking the bottom of her foot and noted it to be purple. They recommended that she come back to the emergency department. Patient states that she has been having continuous pain that is unchanged with this. She denies constitutional symptoms such as fever. Patient does have a history of breast cancer and she is currently on oral chemotherapy. Physical Examination: Lower extremity exam shows bilateral edema of the patient's lower extremities that is symmetric. Right foot exam shows a blister over the heel with evidence of some blood underneath the blister, no evidence of surrounding erythema, subcutaneous emphysema, or streaking. No real tenderness over the area. No active drainage. There is a small hole in the top of the blister which appears to show good viable skin. Test Results: Foot x-ray shows soft tissue changes and no evidence of osteomyelitis or bony changes. Emergency Department Course and Treatment: Patient presented due to concern for possibility of foot infection. An x-ray was obtained which shows no evidence of bony changes. On physical exam the foot does not look infected, the patient is not febrile tachycardic and has not reported any sort of changes in her symptoms. The purple discoloration appears to be blood around the outside of the blister on the patient's foot and not infectious. I will place the patient on a slightly prolonged course of her Keflex and have her follow-up with podiatry. She understands signs and symptoms for which to return. Disposition: Discharge Impression: 1. Healing right foot wound This note was generated with [employer] dictation software. It may contain incorrect words, spelling, and punctuation that were not noted in review of the chart prior to signing ED Disposition - Plan for ED Patient: Disposition: Home or Assisted Living Chief Complaint: Lower Extremity Injury Diagnosis: Blister of foot Instructions: ED Foot Care Diabetic Prescriptions: Cephalexin [Keflex] 500 mg PO Q6 #20 cap Referrals: Nohemi Martinez DPM [STAFF PHYSICIAN] - 3-5 Days Additional Instructions: This good general information for foot care. You do not have diabetes
== END 2018-02-08 19:03 | disposition home or self-care (01) ==
PROVIDERS: Emergency Provider Emergency Medicine; Family Provider Family Medicine; PCP Family Medicine
DX: S90.821A Blister (nonthermal), right foot, initial encounter (principal); X58.XXXA Exposure to other specified factors, initial encounter; Y93.9 Activity, unspecified; Y92.9 Unspecified place or not applicable; R60.0 Localized edema; C50.919 Malignant neoplasm of unspecified site of unspecified female breast; Z79.899 Other long term (current) drug therapy
CPT/HCPCS: 73630; 99282

== ENCOUNTER 2018-02-17 11:35 | Day surgery (SDC) | payer MEDICARE, SELFPAY ==
[2018-01-31 15:10] LABS: Hematocrit 31.2 % (37-47); Hemoglobin 10.1 g/dl (12.0-15.0); Mean Corp Hgb Conc 32.4 g/gl (32-36); Mean Platelet Vol. 8.6 fl (6.2-12.0); Platelet Count 214 K/mm3 (150-450); RBC Distribution Width SD 46.3 fl (35.1-43.9); Red Blood Count 3.06 M/mm3 (4.2-5.4); Scan Indicated on CBC? Y/N NO; White Blood Count 2.9 K/mm3 (4.4-11.0)
[2018-01-31 15:15] LABS: Prothrombin Time (Protime)PT. 12.7 SECONDS (11.7-14.9)
[2018-02-17] VITALS (9 sets, daily range): BP systolic 96–113; BP diastolic 54–70; PULSE 74–82; RESP 16; TEMP 36.2–37.8; O2SAT 93–100; BMI 22.8
--- NOTE | 2018-02-17 | FLU_PTH ---
PATIENT: RHONDA MARTIN LOC: EN U#:[id number] AGE/SX: 62/F ROOM: RE02/17/[address]: Dr. Yimi Sue DO : 1955 BED: DIS: 02/17/2018 SPEC #: [id number] RECD: 02/17/18 13:52 STATUS: JOSELITO REMonika #: [id number] LE: 02/17/18 00:[address]: Yimi Sue DEPT: CYTOLOGY RECD BY: Eric Canchola ENTERED: 02/17/18 13:53 SP TYPE: Fluid OTHR DR: Dr. Liban Gomez DO Tissues: A - Lung, NOS B - Lung, NOS C - Lung, NOS Procedures: Surgery Specimen Level I Pap Stain (control) Special Stain Group II Surgery Specimen Level IV Diff Quik Stain (control) Cell Block Cytospin Fluid Cytology Other HEADER OPERATION: EBUS PRE-OP DIAGNOSIS: Other specified postprocedural states, Z98.890 TISSUE SUBMITTED: A. EBUS aspiration #1, site 7, B. EBUS aspiration #2, site 7 C. EBUS fluid, site 7 DIAGNOSIS CYTOLOGY A. EBUS aspiration #1, site 7 (smear): Nondiagnostic specimen. Blood and rare respiratory epithelial cells noted. B. EBUS aspiration #2, site 7 (smear): Nondiagnostic specimen. Blood only. C. TBNA fluid (cytospin and cell block): Negative for malignant cells. Respiratory epithelial cells and crushed lymphocytes are noted. SJ:sp 02/20/18 COMMENT The specimen is evaluated at the time of procedure by Dr. Juárez. Immediate Evaluation: A. EBUS aspiration #1, site 7: Non-diagnostic, blood and rare respiratory epithelial cells only. - Reported to Dr. Sue at 1311 02/10/18 B. EBUS aspiration #2, site 7: Non- diagnostic blood only - Reported to Dr. Sue at 1317 02/10/18 Correlation clinical, radiologic findings and appropriate followup are necessary. Please make reference to previous specimen [id number], breast, left, u/s guided core biopsy with diagnosis of invasive ductal carcinoma; and [id number], T12,kyphoplasty with diagnosis of hematopoietic marrow with trilineage hematopoiesis and negative for malignancy. Case has been reviewed in consultation with Dr. Stahl who concurs with the above diagnosis. IDC:AM CYTOLOGY STUDY Slides are reviewed. CYTOLOGY GROSS A. Received labeled with the patient's name and and designated 7 EBUS FNA aspiration #1. The specimen consists of two smears. The smears submitted for cytologic evaluation (wet read) B. Received labeled with the patient's name and and designated 7 EBUS FNA aspiration #2. The specimen consists of two smears. The smears submitted for cytologic evaluation (wet read) C. Received in [facility] and labeled with the patient's name and and designated TBNA 7. Submitted for cytology preparation including cell block.) TC: 5 CPT: 34005, 24443 x2, 37346, 07007, 34165
--- NOTE | 2018-02-17 11:15 | PCM.HP.STD ---
History of Present Illness Date of Admission: 02/17/18 Chief Complaint: Mediastinal adenopathy The patient has a history of bilateral breast cancer treated with bilateral lumpectomy and sentinel node biopsy, adjuvant chemotherapy and radiation, which completed in November 2012. She was subsequently found to have bone metastasis in 2015. She was started back on Arimidex and also had palliative radiation treatment to the right femur. The patient developed back pain at the beginning of 2017 and an MRI of her lumbar spine showed metastatic disease. CT chest/abdomen/pelvis showed bilateral pulmonary nodules along with mediastinal lymphadenopathy. A PET CT scan completed in October 2017 showed persistent hypermetabolic soft tissue mass at the T12-L1 level, consistent with the patient's metastatic disease. There was interval increase in FDG avidity in the patient's mediastinal and bilateral hilar lymph nodes, for which the patient was referred to the pulmonary medicine clinic for evaluation. A follow-up chest CT completed on January 11, 2018 failed to demonstrate any significant bilateral hilar adenopathy that would correlate with the patient's prior PET scan. 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 per cath 10/22 Hx of breast cancer (Chronic) Medical History: Medical History (Last Reviewed 01/11/18 @ 10:09 by Yadira Garcia) Compression fracture of body of thoracic vertebra (Chronic) M48.54XA Carcinoma of breast metastatic to bone (Chronic) C50.919, C79.51 Anemia (Chronic) D64.9 Osteoarthritis of knee, unspecified (Acute) M17.9 Dyslipidemia (Chronic) E78.5 NSTEMI (non-ST elevated myocardial infarction) (Chronic) I21.4 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 per cath 10/22 Hx of breast cancer (Chronic) Z85.3 Chest pain (Acute) R07.9 Allergies povidone-iodine [From Betadine] Adverse Reaction (Severe, Verified 01/28/18 15:03) Other BROKE OUT INTO BLISTERS soap [From Betadine] Adverse Reaction (Severe, Verified 01/28/18 15:03) Other BROKE OUT INTO BLISTERS Home Medications: Ambulatory Orders Medication Instructions Recorded melatonin 3 mg tablet 3 mg PO HS PRN 01/06/18 sennosides 8.6 mg tablet 17.2 mg PO BID tab 01/06/18 Gabapentin [Neurontin] 300 mg PO TID 01/28/18 Dexamethasone [Decadron] 2 mg PO BID 02/03/18 Letrozole [Femara] 2.5 mg PO DAILY 02/03/18 Ondansetron HCl [Zofran] 4 mg PO Q8H PRN 02/03/18 Oxycodone CR [Oxycontin] 40 mg PO Q8H 02/03/18 Palbociclib [Ibrance] 75 mg PO DAILY 02/03/18 Cephalexin [Keflex] 500 mg PO Q6 #20 cap 02/08/18 Cholecalciferol (Vitamin D3) 5,000 unit PO .FRI.WED 02/17/18 [Vitamin D3] Duloxetine Hcl [Cymbalta] 60 mg PO DAILY 02/17/18 Ibuprofen 800 mg PO Q8H 02/17/18 Surgical History: Surgical History (Last Reviewed 01/11/18 @ 10:09 by Yadira Garcia) History of tonsillectomy and adenoidectomy (Resolved) Z98.890 Aftercare following left ankle joint replacement surgery (Resolved) Z47.1, Z96.662 History of partial mastectomy of both breasts (Resolved) Z90.13 History of breast biopsy (Resolved) Z98.890 Surgical History: - - Left Achilles tendon surgery, lumpectomy of both breasts Psychiatric History: No pertinent psych hx SAFETY TRAINER History: No pertinent SAFETY TRAINER history Smoking Status: Former smoker - *Family History Maternal Family History: Family History (Last Reviewed 01/11/18 @ 10:09 by Yadira Garcia) Mother Hypertension COPD (chronic obstructive pulmonary disease) Father Cancer Grandmother Breast cancer Grandfather CVA (cerebral vascular accident) History Items: No pertinent history Paternal Family History: Family History (Last Reviewed 01/11/18 @ 10:09 by Yadira Garcia) Mother Hypertension COPD (chronic obstructive pulmonary disease) Father Cancer Grandmother Breast cancer Grandfather CVA (cerebral vascular accident) History Items: No pertinent history Sibling Family History: Family History (Last Reviewed 01/11/18 @ 10:09 by Yadira Garcia) Mother Hypertension COPD (chronic obstructive pulmonary disease) Father Cancer Grandmother Breast cancer Grandfather CVA (cerebral vascular accident) History Items: No pertinent history Review of Systems Constitutional: Denies: Chills, Fever, Weight Change HEENT: Denies: Head Aches, Sinus Congestion, Sinus Drainage Cardiovascular: Denies: Chest Pain, Palpitations Respiratory: Denies: Cough, Shortness of breath at rest, Sputum production Gastrointestinal: Denies: Abdominal Pain, Nausea, Vomiting Genitourinary: Denies: Dysuria Musculoskeletal: Denies: Joint Pain, Joint Tenderness Skin: Reports: Rash. Denies: Wounds Neurological: Denies: Numbness, Tingling, Focal weakness Psychiatric: Denies: Anxiety, Depression, Homicidal Ideations, Suicidal Ideations Hematologic/ Lymphatic: Denies: Easy Bruising, Easy Bleeding VTE Information - Inpt Only VTE Present on Admission: No VTE Mechan Device Prophylaxis: None VTE Pharm Prophylaxis ordered?: No - Physical Exam General: Alert, Cooperative, No apparent distress HEENT: Atraumatic, PERRLA, Normocephalic Oral: No Gingival or Mucosal Lesions/ Ulcerations Neck: Supple, No Nodes, Trachea Midline Lungs: Normal air movement, No rhonchi, No wheeze, No rales Cardiovascular: Regular rate, Regular Rhythm, Normal S1, Normal S2, No murmurs Abdomen: Bowel Sounds Present, Soft, Non Tender Extremities: No clubbing, No cyanosis, No edema Skin: Rash Present Musculoskeletal: No Tenderness to Palpation of Joints or Extremities Lymphatic: No Cervical, Supraclavicular, or Inguinal Adenopathy Neurological: Neuro grossly intact Psych/Mental Status: Normal Affect, Appropriate Assessment/Plan All Active Problems (Last Reviewed 01/11/18 @ 10:09 by Yadira Garcia) Cellulitis (Acute) History of tonsillectomy and adenoidectomy (Resolved) Aftercare following left ankle joint replacement surgery (Resolved) History of partial mastectomy of both breasts (Resolved) History of breast biopsy (Resolved) Osteoarthritis of knee, unspecified (Acute) Chest pain (Acute) Breast cancer (Resolved) Assessment & Plan 1. Mediastinal lymphadenopathy R59.0 Plan The patient has a history of metastatic breast cancer with recent PET scan in October completed through the [facility] in [place] indicating increase in avidity in the patient's mediastinal and hilar lymph nodes. I did personally discuss this case with the patient's oncologist, Dr. Aguillon, with consideration being given to proceeding with EBUS. While a review of the patient's PET scan completed in October 2017 did reveal some avidity in the bilateral hilar nodes, a follow-up chest CT completed here at the beginning of January failed to demonstrate any significant adenopathy. However, due to the concerns for potential malignancy, the patient wished to proceed with mediastinal lymph node evaluation and potential biopsy, if clinically indicated. Risks and benefits of the procedure were reviewed with the patient at length. Questions were answered accordingly. The patient is in agreement to proceed.
[2018-02-17] MEDS: Ipratropium/Albuterol Sulfate 3 ML AMPUL.NEB INHALATION (12:25)
[2018-02-17] MEDS: Lidocaine 4% 5 ML Ampul 4 ML INHALATION (12:25)
--- NOTE | 2018-02-17 12:27 | SUR.PREOP ---
LEFT LOWER HEEL WOUND WITH 2+ EDEMA TO LLE UP TO THIGH, HAS REPORTEDLY BEEN ON KEFLEX FOR 2 WEEKS, TEMP 100.1, DR YAO NOTIFIED, STATES HE WILL PROCEED WITH PROCEDURE. DR RAMOS ALSO NOTIFIED.
--- NOTE | 2018-02-17 14:13 | OP.ENDO_ITS ---
Patient Name: Shanita Rowe Procedure Date: 02/17/2018 12:08 PM Date of : 1955 Age: 62 Procedure: Bronchoscopy Indications: Mediastinal adenopathy Providers: Yimi Sue MD Referring MD: Yimi Sue MD Medicines: General Anesthesia Complications: No immediate complications Procedure: Pre-Anesthesia Assessment: - Slater Protocol: - Pre-procedure Verification: Prior to the procedure, the patient's identity was verified by full name and date of . The patient's identity was verified on all pertinent medical records, including History and Physical. Also prior to the procedure, a History and Physical was performed, and patient medications, allergies and sensitivities were reviewed. The patient's tolerance of previous anesthesia was reviewed. The risks and benefits of the procedure and the sedation options and risks were discussed with the patient. All questions were answered and informed consent was obtained. - Time-Out: Prior to the start of the procedure, the patient's identification, proposed procedure, accurate signed consent, correctly labeled images and records, and need for prophylactic antibiotics were verified by the physician and the nurse in the procedure room. - A History and Physical has been performed. The patient's medications, allergies and sensitivities have been reviewed. - The risks and benefits of the procedure and the sedation options and risks were discussed with the patient. All questions were answered and informed consent was obtained. After I obtained informed consent, the scope was passed under direct vision. Throughout the procedure, the patient's blood pressure, pulse, and oxygen saturations were monitored continuously. The ultrasound bronchoscope was introduced through the mouth, via laryngeal mask airway and advanced to the tracheobronchial tree. The procedure was accomplished without difficulty. The patient tolerated the procedure well. Findings: The laryngeal mask airway is in good position. The vocal cords appear normal. The subglottic space is normal. The trachea is of normal caliber. The margarito is sharp. The tracheobronchial tree was examined to at least the first subsegmental level. Bronchial mucosa and anatomy are normal; there are no endobronchial lesions, and no secretions. The scope was withdrawn and replaced with the EBUS bronchoscope to accomplish the ultrasound examination. The bilateral hilar regions were examined by ultrasound and found to be free of significant adenopathy. A small (5-7mm) subcarinal lymph node was identified. Lymph Nodes: An endobronchial ultrasound endoscope was utilized to systematically examine the subcarinal mediastinum (level 7) and bilateral hilar stations in order to assist with guiding the biopsy needle. Lymph node sizing was performed via endobronchial ultrasound. Sampling by transbronchial needle aspiration was also performed using an Olympus EBUS-TBNA 19 gauge needle in the subcarinal mediastinum (level 7) and sent for routine cytology. - The 7 (subcarinal) node was evaluated. Two samples with the needle were obtained. Impression: - No signficant B/L Hilar adenopathy was identified. - A small subcarinal lymph node of 5-7 mm size was identified and biopsied. - The airway examination was normal. - Endobronchial ultrasound was performed. Recommendation: - Await biopsy results. - Follow up in clinic as previously scheduled. Procedure Code(s): --- Professional --- 99117, Bronchoscopy, rigid or flexible, including fluoroscopic guidance, when performed; with endobronchial ultrasound (EBUS) guided transtracheal and/or transbronchial sampling (eg, aspiration[s]/biopsy[ies]), one or two mediastinal and/or hilar lymph node stations or structures Diagnosis Code(s): --- Professional --- R59.0, Localized enlarged lymph nodes R09.89, Other specified symptoms and signs involving the circulatory and respiratory systems CPT copyright 2017 [employer]. All rights reserved. The codes documented in this report are preliminary and upon fiberglass ski maker review may be revised to meet current compliance requirements. DO Yimi North MD 02/17/2018 2:13:13 PM This report has been signed electronically. Number of Addenda: 0 Note Initiated On: 02/17/2018 12:08 PM
== END 2018-02-17 16:13 | disposition home or self-care (01) ==
LOC: EN 11:36 → AC 11:37
PROVIDERS: Family Provider Family Medicine; PCP Family Medicine; Referring Provider Internal Medicine Critical Care Medicine; Visit Provider Internal Medicine Critical Care Medicine
PROC: BB4BZZZ Ultrasonography of Pleura (ICD-10-PCS; CPT 31652; 2018-02-17 12:00)
DX: R59.0 Localized enlarged lymph nodes (principal); R09.89 Other specified symptoms and signs involving the circulatory and respiratory systems; M17.10 Unilateral primary osteoarthritis, unspecified knee; I25.2 Old myocardial infarction; M48.54XA Collapsed vertebra, not elsewhere classified, thoracic region, initial encounter for fracture; C79.51 Secondary malignant neoplasm of bone; Z85.3 Personal history of malignant neoplasm of breast; Z92.21 Personal history of antineoplastic chemotherapy; Z92.3 Personal history of irradiation; Z86.2 Personal history of diseases of the blood and blood-forming organs and certain disorders involving the immune mechanism; Z78.0 Asymptomatic menopausal state; Z90.13 Acquired absence of bilateral breasts and nipples; Z79.899 Other long term (current) drug therapy; Z87.891 Personal history of nicotine dependence
CPT/HCPCS: 31652; 36415; 85027; 85610; 88108; 88161; 88300; 88305; 88313; 94640; J7120

== ENCOUNTER → 2018-11-06 | Outpatient (CLI) | payer MEDICARE, SELFPAY ==
[2018-02-23 08:12] VITALS: BMI 22.2
[2018-11-06 15:35] LABS: Color, Urine Yellow (Yellow); Glucose, Dipstick Normal (Normal); Ketone-Dipstick Negative (Negative); Leukocyte Esterase-Dipstick 500 /ul (Negative); Nitrite-Dipstick Negative (Negative); Occult Blood-Urine 10 /ul (Negative); Protein-Dipstick Negative (Negative); Specific Gravity, Urine 1.015 (1.002-1.030); Urine Bilirubin Dipstick Negative (Negative); Urine Clarity Clear (Clear); Urine Urobilinogen 1 mg/dl (Normal)
[2018-11-06 15:44] LABS: Renal Epithelial Cells 0-5 SEEN /hpf (0-5); Squamous Epithelial Cells - UA 5-10 SEEN /hpf (5-10); White Blood Cells 50-100 SEEN /hpf (0-5)
[2018-11-06 15:45] LABS: Bacteria 1+ /hpf (None Seen); Mucous, Urine RARE /hpf (<or=2+); Red Blood Cells-Urine 0-5 SEEN /hpf (0-5)
[2018-11-06 16:35] LABS: ALB/GLOB Ratio 0.6 RATIO (0.9-2.4); AST(SGOT) 90 U/L (15-37); Alanine Aminotransfer ALT/SGPT 28 U/L (13-56); Albumin, Serum 2.4 g/dL (3.2-5.0); Alkaline Phosphatase 84 U/L (45-117); Anion Gap 5 (5-15); BUN 6 mg/dL (7-18); BUN/Creat Ratio 7.3 RATIO (10-20); Calcium,Total 8.2 mg/dL (8.5-10.1); Chloride 107 mmol/L (98-107); Creatinine, Serum 0.82 mg/dL (0.55-1.02); EST Glomerular Filtration Rate 75 mL/min (>60); Est Glom Filt Rate - Afr Amer 90 mL/min (>60); Glucose 62 mg/dL (74-106); Protein, Total 6.4 g/dL (6.4-8.2); Sodium Level 138 mmol/L (136-145); Thyroid Stim Hormone (TSH) 1.44 uIU/mL (0.358-3.74)
== END | disposition home or self-care (01) ==
LOC: BFHLAB 14:04
PROVIDERS: Family Provider Family Medicine; PCP Family Medicine; Visit Provider Family Medicine
DX: R60.0 Localized edema (principal)
CPT/HCPCS: 36415; 80053; 81001; 84443

== ENCOUNTER 2018-12-10 08:26 | Outpatient (CLI) | payer MEDICARE, SELFPAY ==
[2018-02-23 08:12] VITALS: BMI 22.2
[2018-12-10] VITALS (8 sets, daily range): BP systolic 99–141; BP diastolic 53–86; PULSE 58–73; RESP 16–20; TEMP 36.3–36.8; O2SAT 96–100; BMI 26.2
[2018-12-10] MEDS: Acetaminophen 325 MG Tablet 650 MG PO (10:29)
[2018-12-10] MEDS: Furosemide 20 MG/2 ML VIAL IV (14:23)
[2018-12-10] MEDS: 0.9% NaCl Peripheral Flush Adult/Peds IV (14:23)
== END 2018-12-10 19:00 | disposition home or self-care (01) ==
LOC: MEDOUTP 08:35 → MS3 08:37
PROVIDERS: Family Provider Family Medicine; PCP Family Medicine; Referring Provider Internal Medicine Hematology & Oncology; Visit Provider Internal Medicine Hematology & Oncology
DX: Z51.89 Encounter for other specified aftercare (principal); D64.9 Anemia, unspecified; C50.919 Malignant neoplasm of unspecified site of unspecified female breast
CPT/HCPCS: 36430; 86850; 86900; 86901; 86920; 86922; J7040; P9016; A4216; J1940

== ENCOUNTER 2019-01-13 14:05 | Emergency (ER) | payer MEDICARE, SELFPAY ==
[2018-12-10 12:18] VITALS: BMI 26.2
[2019-01-13 14:08] VITALS: BP 122/100; PULSE 79; RESP 18; TEMP 37.3; O2SAT 97; BMI 25.5
--- NOTE | 2019-01-13 14:35 | RAD_ITS ---
STUDY: X-RAY - LUMBAR SPINE REASON FOR EXAM: Female, 63 years old. Low back pain TECHNIQUE: 3 view(s) of the lumbar spine were obtained. COMPARISON: CT chest of 01/11/2018, MRI lumbar spine 05/12/2017. FINDINGS: Posterior fusion hardware of the thoracolumbar spine with apparent interval fracture the lower posterior fusion rods) at L1-L2 (intact on prior CT of 01/11/2018. Severe compression fracture of T12 and L1 with prior vertebral augmentation T11 again identified. There is multilevel endplate spondylosis of the lumbar vertebrae. There is multi-level degenerative disc disease with multi-level disc space narrowing. The soft tissue structures are unremarkable. RAD/Lumbar Spine 2 or 3 Views IMPRESSION: 1. Fracture of lower fusion rods at L1-L2 level. This is new since prior CT of 01/11/2018. 2. Similar compression and lytic destruction of T12 and L1 better seen on prior CT and MRI. Electronically Signed: Reece Fulton MD (Brooks) at 15:36 EDT , Service support ,
--- NOTE | 2019-01-13 14:36 | ED.DCSUM_ITS ---
History of Present Illness Chief Complaint: Back Informant: Patient Onset: Days Current Severity: Mild Narrative: The patient presents with mid thoracic to high lumbar back pain dictates that the other day she basically moved she turned felt a pop in her back, she has a history of metastatic breast cancer, currently receiving oral chemotherapy at [facility], currently under palliative care, outpatient x-rays showed fracture of Paige robert at level of L2-L3 individual rods and's are in close approximation to each other please see the note report on chart This x-ray result was called to [facility] she was sent to the emergency dep artment followed by oncologist at [facility] She had breast cancer 10 to 7 years ago initial diagnosis, had lumpectomies other surgeries, recalls having chemo radiation therapy, and subsequent to the all the above there was concerns about metastasis to the lumbar back thoracic back she was sent to [facility] where after evaluation it was determined that she would benefit from having Paige rods placed, she then subsequent to all the above was found to have metastatic breast CA and is now on her oral chemotherapeutic agent for the breast cancer. She indicates she did not suffer any direct trauma She is currently receiving Dilaudid methadone and other oral medications to help control her pain, she indicates as long as she is still her pain is improved she has no other change in her status she has no numbness weakness paresthesias she is able to walk very slowly around the [facility] with assistance and use of walking aids, complains of intermittent numbness to the right leg is not clear if that is really no Past Medical History - Allergies and Home Meds Allergies/Adverse Reactions: Allergies povidone-iodine [From Betadine] Adverse Reaction (Severe, Verified 01/13/19 14:07) Other BROKE OUT INTO BLISTERS soap [From Betadine] Adverse Reaction (Severe, Verified 01/13/19 14:07) Other BROKE OUT INTO BLISTERS Primary Care Physician: Liban Gomez DO [Primary Care Provider] - Past Medical History: - - Includes as above Surgical History: - - Left Achilles tendon surgery, lumpectomy of both breasts Smoking Status: Former smoker - Family History Maternal Family History: Family History (Last Reviewed 02/24/18 @ 10:26 by JOHN Rodriguez) Mother Hypertension COPD (chronic obstructive pulmonary disease) Father Cancer Grandmother Breast cancer Grandfather CVA (cerebral vascular accident) Family History: Reports: No pertinent history Paternal Family History: Family History (Last Reviewed 02/24/18 @ 10:26 by JOHN Rodriguez) Mother Hypertension COPD (chronic obstructive pulmonary disease) Father Cancer Grandmother Breast cancer Grandfather CVA (cerebral vascular accident) Family History: Reports: No pertinent history Sibling Family History: Family History (Last Reviewed 02/24/18 @ 10:26 by JOHN Rodriguez) Mother Hypertension COPD (chronic obstructive pulmonary disease) Father Cancer Grandmother Breast cancer Grandfather CVA (cerebral vascular accident) Family History: Reports: No pertinent history Review of Systems General: Denies: Chills, Fever, Sweats Eyes: Denies: Visual changes - bilaterally, Diplopia ENT: Denies: Rhinorrhea, Sore throat Cardiovascular: Denies: Chest pain, Palpitations Respiratory: Denies: Dyspnea, Cough, Dyspnea on exertion Gastrointestinal: Denies: Abdominal pain, Nausea, Vomiting, Diarrhea, Melena, Hematochezia Genitourinary: Denies: Dysuria, Hematuria, Frequency Musculoskeletal: Denies: Back pain, Extremity Pain Skin: Denies: Rash, Wounds Neurological: Denies: Headache, Weakness, Numbness Physical Exam Vital Signs/Narrative: Vital Signs Temp Pulse Resp BP Pulse Ox 01/13/19 14:08 99.1 F 79 18 122/100 H 97 Back: - - The patient has some discomfort to the mid thoracic upper lumbar level there is no skin breakdown or bruising there is a incisional scar midline that is intact Diagnostic/Tx/Re-eval - Medical Decision Making Patient is neurologically intact did review the report x-ray discovered the fractured Paige robert with her oncologist Dr. Beebe who agreed that the patient should be transferred to [facility] to undergo evaluation by the [facility] spine team who placed the Paige rods initially, discussed this with the patient she agreed to transfer, discussed this with the [facility] transfer center, they have accepted her in transfer we are coordinating the care we will transfer all records x-rays with her will not delay her transfer pending results of these results will be sent to [facility] once they are available Transfer to [facility] Impression final Metastatic breast CA, Fractured Paige robert L2-L3 level Transfer to [facility] for evaluation ED Disposition - Plan for ED Patient: Diagnosis: Metastatic breast cancer, Back pain Referrals: Liban Gomez DO [Primary Care Provider] - Additional Instructions: You will be taken directly to the [facility] for further management of the fractured robert in your back
--- NOTE | 2019-01-13 14:42 | NURSING ---
1436 CALLED [facility] FOR TRANSFER.
[2019-01-13 15:01] LABS: Absolute Lymphocyte Count 0.33 X10^3/uL (0.83-4.51); Absolute Neutrophil Count 1.4 X10^3/uL (2.0-7.7); Basophil# 0.01 X10^3/uL; Basophil% 0.5 % (0-1); Eosinophil# 0.02 X10^3/uL; Hematocrit 26.8 % (37-47); Lymphocyte # 0.33 X10^3/ul (4.0); Lymphocyte % 16.6 % (19-41); Mean Corp Hgb Conc 33.6 g/dL (32-36); Mean Corpuscular Hgb 36.7 pg (27.0-32.0); Mean Corpuscular Volume 109.4 fL (81-99); Monocyte# 0.17 X10^3/uL; Monocyte% 8.5 % (0-10); NRBC Flagged by Analyzer 0 % (0-5); Neutrophil # 1.44 X10^3/uL (2.7-7.7); Neutrophil % 72.4 % (47-70); POSITIVE DIFFERENTIAL YES; POSITIVE MORPHOLOGY YES; Platelet Count 197 K/mm3 (150-450); RBC Distribution Width CV 19.4 % (11.6-14.6); RBC Distribution Width SD 75.2 fl (35.1-43.9); Red Blood Count 2.45 M/mm3 (4.2-5.4)
[2019-01-13 15:04] LABS: Differential Indicated SCAN CRITERIA MET
--- NOTE | 2019-01-13 15:10 | RAD_ITS ---
STUDY: X-RAY CHEST REASON FOR EXAM: Female, 63 years old. Shortness of breath and dyspnea TECHNIQUE: AP COMPARISON: None. FINDINGS: Surgical clips project over each side of the chest. Coarsened interstitial lung markings but no airspace consolidation. There is no demonstrated pleural abnormality. There is mild cardiac enlargement. Normal mediastinum and esperanza. Normal visualized pulmonary arteries. Normal visualized aortic arch and descending thoracic aorta. Fusion hardware of the thoracolumbar spine described on spine x-ray reports. There is no demonstrated abnormality of the visualized soft tissue structures of the upper abdomen. RAD/Chest 1 View (Portable) IMPRESSION: No airspace consolidation or pleural effusion. Electronically Signed: Reece Fulton MD (Brooks) at 15:37 EDT , Service support ,
--- NOTE | 2019-01-13 15:10 | RAD_ITS ---
STUDY: X-RAY - THORACIC SPINE REASON FOR EXAM: Female, 63 years old. Metastatic breast cancer TECHNIQUE: 2 view(s) of the thoracic spine were obtained. COMPARISON: Lumbar spine x-ray performed concurrently. FINDINGS: Normal kyphosis of the thoracic spine. There is no substantial scoliosis. There is demineralization of the thoracic spine. There is multilevel disc space narrowing of the thoracic spine. Prior vertebral augmentation of T11. Compression deformities of T12 and L1 and lower posterior fusion hardware described on lumbar spine x-ray report. RAD/Thoracic Spine 3 Views IMPRESSION: 1. Diffuse osteopenia with operative changes. Description of lower thoracic spine on lumbar spine x-ray report, including lower posterior fusion rods. Electronically Signed: Reece Fulton MD (Brooks) at 15:39 EDT , Service support ,
--- NOTE | 2019-01-13 15:19 | NURSING ---
CALLED [facility] ETA IS 25 TO 30 MIN
[2019-01-13 15:20] LABS: Anion Gap 4 (5-15); BUN 10 mg/dL (7-18); BUN/Creat Ratio 14.6 RATIO (10-20); Calcium,Total 8.4 mg/dL (8.5-10.1); Chloride 103 mmol/L (98-107); Creatinine, Serum 0.69 mg/dL (0.55-1.02); Differential Comment SCANNED; EST Glomerular Filtration Rate 92 mL/min (>60); Est Glom Filt Rate - Afr Amer 111 mL/min (>60); Estimated Creatinine Clearance 87.21 ml/min; Glucose 83 mg/dL (74-106); Hypochromasia 1+; Platelet Estimate ADEQUATE (ADEQ); Sodium Level 137 mmol/L (136-145)
[2019-01-13] MEDS: Ondansetron 4 MG/2 ML Vial PO (15:32)
[2019-01-13] MEDS: morphine 8 MG/ML Syringe SC (15:33)
[2019-01-13 15:54] VITALS: BP 100/59; PULSE 60; RESP 14; O2SAT 96
[2019-01-15 12:06] LABS: Pathologist Review Reviewed
== END 2019-01-13 15:56 | disposition home or self-care (01) ==
LOC: ED 14:43
PROVIDERS: Emergency Provider Emergency Medicine; Family Provider Family Medicine; PCP Family Medicine
DX: C50.919 Malignant neoplasm of unspecified site of unspecified female breast (principal); M54.9 Dorsalgia, unspecified; T84.89XA Other specified complication of internal orthopedic prosthetic devices, implants and grafts, initial encounter; Z51.5 Encounter for palliative care; Z85.3 Personal history of malignant neoplasm of breast; Z79.899 Other long term (current) drug therapy; Z87.891 Personal history of nicotine dependence
CPT/HCPCS: 71045; 72072; 72100; 80048; 85025; 96372; 99285; A4216; J2405

== ENCOUNTER 2019-07-04 10:07 | Inpatient (IN) | payer MEDICARE, MEDICAID, SELFPAY ==
[2019-07-04] VITALS (16 sets, daily range): BP systolic 96–143; BP diastolic 52–75; PULSE 62–80; RESP 13–19; TEMP 36.6–37.4; O2SAT 93–98; BMI 42.0; BMI 27.4
--- NOTE | 2019-07-04 10:14 | CT_ITS ---
STUDY: CTA CHEST REASON FOR EXAM: Female, 63 years old. PT STATED INCREASED SHORT OF BREATH FOR SEVERAL DAYS, HX OF STAGE 4 BREAST CA W BILATERAL LUMPECTOMY RADIATION DOSAGE (If Supplied By Facility): CTDIvol = ( 11.15 ) mGy, DLP = ( 489.27 ) mGycm TECHNIQUE: The examination was performed with the intravenous administration of 100ML ISOVUE 370. Post-processing of the angiographic images was performed, with multiplanar reformation and 3D reconstruction. Individualized dose optimization techniques were used for this CT. COMPARISON: Comparison is made with prior examination dated October 21, 2013. FINDINGS: The patient is status post bilateral mastectomy. Normal enhancement of the main pulmonary artery and right and left pulmonary arteries. Normal enhancement of the bilateral peripheral pulmonary arteries. There is no demonstrated pulmonary embolism. Normal thoracic aorta and visualized great vessels. There is no demonstrated aortic dissection. Normal heart and pericardium. Normal mediastinum. Normal hilar regions. Normal visualized trachea and bronchi. The lungs are well expanded. There is evidence of a groundglass appearance involving the right upper lobe and right middle lobes as well as the left upper lobe and right lower lobe. There are areas of bronchiectasis involving the right middle lobe as well as the right lower lobe suggestive of possible post radiation fibrosis. This was not seen on prior examination. Normal pleura. Normal chest wall structures. There is evidence of prior interpedicular screw fixation with anatomic and robert in the lower thoracic upper lumbar vertebrae with the vertebroplasty. There is evidence of metastatic disease throughout the visualized thoracic and lumbar vertebrae. Normal visualized upper abdomen. CT/CTA Chest W/WO Contrast IMPRESSION: Diffuse groundglass appearance involving the right upper lobe as well as right middle lobe and areas of the right lower lobe with evidence of a bronchiectasis and scarring in the right lower lobe. Mild degree of increased ground glass appearance in the left upper lobe. 1. Metastasis. Electronically Signed: Steve Zelaya, at 12:14 EDT , Service support ,
--- NOTE | 2019-07-04 10:24 | ED.DCSUM_ITS ---
- ER Visit Summary Date of Service: 07/04/19 Chief Complaint: Shortness of breath History of Present Illness: The patient is a 63 F who is a patient of Dr. Aguillon. She is being treated for metastatic breast cancer and arrives from [facility] today. She is full code. She presents today with shortness of breath for several days. Today she had a fever of 100.5 and a pulse ox in the 80s on room air. She said she is not having a cough or any other infectious symptoms. She denies chest pain. Physical Examination: Afebrile and vital signs unremarkable except for pulse ox 87% on room air. She is 95% on 4 L. She is speaking and moving comfortably. Clear and nonlabored breathing. Heart regular. Abdomen soft. Extremities nontender with no edema. Test Results: Labs and imaging pending. Emergency Department Course and Treatment: Patient had coronavirus precautions. She was placed on a monitor, oxygen. IV established. Will check labs and urine and cultures for sepsis evaluation. We will also check for PE. White count stable 3.7. Hemoglobin dropped to 7.1. Metabolic panel normal. Coags normal. Urinalysis normal. Troponin normal. BNP 203. Lactate 2.1. Cultures pending. CTA showed diffuse groundglass changes and scarring in the right lower lobe with metastatic disease. Patient was discussed with Dr. Aguillon. He advised to stop her Ibrance. Okay with transfusion. Patient consented to transfusion with 2 units of packed red cells. Hemoccult testing pending. Patient has presumed coronavirus infection. I spoke with Dr. Gunter will admit. He advised holding the transfusion for now, until her Hgb drops. He requested broad spectrum antibiotics. I started Zosyn and Vancomycin and a fluid bolus. Patient remains hemodynamically stable, afebrile, with good mental status. Treatment Plan: As above Disposition: Admission Impression: Anemia, suspected coronavirus 2019, breast cancer with metastatic disease This note was generated with [employer] dictation software. It may contain incorrect words, spelling, and punctuation that were not noted in review of the chart prior to signing ED Disposition - Plan for ED Patient: Referrals: Liban Gomez DO [Primary Care Provider] -
[2019-07-04 10:42] LABS: Bacteria 0 SEEN /hpf (None Seen); Mucous, Urine 0 SEEN /hpf (<or=2+); Red Blood Cells-Urine 0 SEEN /hpf (0-5)
[2019-07-04 10:45] LABS: Absolute Lymphocyte Count 0.27 X10^3/uL (0.83-4.51); Absolute Neutrophil Count 3.3 X10^3/uL (2.0-7.7); Basophil# 0.01 X10^3/uL; Basophil% 0.3 % (0-1); Eosinophil# 0.03 X10^3/uL; Eosinophils% 0.8 % (0-5); Hematocrit 21.3 % (37-47); Hemoglobin 7.1 g/dL (12.0-15.0); Lymphocyte # 0.27 X10^3/ul (4.0); Lymphocyte % 7.2 % (19-41); Mean Corp Hgb Conc 33.3 g/dL (32-36); Mean Corpuscular Hgb 37.8 pg (27.0-32.0); Mean Corpuscular Volume 113.3 fL (81-99); Mean Platelet Vol. 9.6 fl (6.2-12.0); Monocyte# 0.12 X10^3/uL; Monocyte% 3.2 % (0-10); NRBC Flagged by Analyzer 1.3 % (0-5); Neutrophil # 3.27 X10^3/uL (2.7-7.7); Neutrophil % 87.4 % (47-70); POSITIVE DIFFERENTIAL YES; POSITIVE MORPHOLOGY YES; Platelet Count 198 K/mm3 (150-450); RBC Distribution Width CV 15.9 % (11.6-14.6); RBC Distribution Width SD 63.5 fl (35.1-43.9); Red Blood Count 1.88 M/mm3 (4.2-5.4); White Blood Count 3.7 K/mm3 (4.4-11.0)
[2019-07-04 10:47] LABS: Differential Indicated SCAN CRITERIA MET
[2019-07-04 10:48] LABS: Color, Urine Yellow (Yellow); Glucose, Dipstick Normal (Normal); Ketone-Dipstick Negative (Negative); Leukocyte Esterase-Dipstick 25 /ul (Negative); Nitrite-Dipstick Negative (Negative); Occult Blood-Urine Negative /ul (Negative); Protein-Dipstick Negative (Negative); Specific Gravity, Urine 1.015 (1.002-1.030); Urine Bilirubin Dipstick Negative (Negative); Urine Clarity Clear (Clear); Urine Urobilinogen 8 mg/dl (Normal)
[2019-07-04 10:55] LABS: International Normalized Ratio 1.1; Prothrombin Time (Protime)PT. 13.9 SECONDS (11.7-14.9)
[2019-07-04 10:56] LABS: Partial Thromboplast Time 33.1 Seconds (24.1-36.2)
[2019-07-04 10:57] LABS: Squamous Epithelial Cells - UA 0-5 SEEN /hpf (5-10); White Blood Cells 0-5 SEEN /hpf (0-5)
[2019-07-04 11:08] LABS: ALB/GLOB Ratio 0.6 RATIO (0.9-2.4); AST(SGOT) 24 U/L (15-37); Alanine Aminotransfer ALT/SGPT 10 U/L (13-56); Albumin, Serum 2.4 g/dL (3.2-5.0); Alkaline Phosphatase 63 U/L (45-117); Anion Gap 7 (5-15); BUN 12 mg/dL (7-18); BUN/Creat Ratio 16.6 RATIO (10-20); Calcium,Total 8.2 mg/dL (8.5-10.1); Chloride 104 mmol/L (98-107); Creatinine, Serum 0.72 mg/dL (0.55-1.02); EST Glomerular Filtration Rate 86 mL/min (>60); Est Glom Filt Rate - Afr Amer 104 mL/min (>60); Estimated Creatinine Clearance 111.23 ml/min; Globulin 4.1 g/dL (2.2-4.2); Glucose 97 mg/dL (74-106); Potassium 3.7 mmol/L (3.5-5.1); Protein, Total 6.5 g/dL (6.4-8.2); Sodium Level 137 mmol/L (136-145)
[2019-07-04 11:16] LABS: Lactic Acid 2.1 mmol/L (0.4-1.9); Reactive Lymphocyte 1+
--- NOTE | 2019-07-04 13:58 | NURSING ---
PCU K[facility]TOE ANEMIA, SUSPECTED COVID, BREAST CA
--- NOTE | 2019-07-04 14:27 | PCM.HP.STD ---
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 In addition to the shortness of breath patient did experience cough as well as generalized weakness. She did contact her oncologist was concerned about PE patient was therefore sent to the ED. In the emergency department CAT scan obtained demonstrated groundglass appearance worrisome for possible viral pneumonia patient was placed on isolation and admitted for subsequent inpatient management. Past Medical History Past Medical History (Chronic Problems): Chronic Problems (Last Reviewed 07/04/19 @ 14:[address] 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 per cath 10/22 Hx of breast cancer (Chronic) Medical History: Medical History (Last Reviewed 07/04/19 @ 14:[address] Pawan Gunter MD) Compression fracture of body of thoracic vertebra (Chronic) M48.54XA Carcinoma of breast metastatic to bone (Chronic) C50.919, C79.51 Anemia (Chronic) D64.9 Osteoarthritis of knee, unspecified (Acute) M17.9 Dyslipidemia (Chronic) E78.5 NSTEMI (non-ST elevated myocardial infarction) (Chronic) I21.4 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 per cath 10/22 Hx of breast cancer (Chronic) Z85.3 Chest pain (Acute) R07.9 Allergies povidone-iodine [From Betadine] Adverse Reaction (Severe, Verified 07/04/19 10:51) Other BROKE OUT INTO BLISTERS soap [From Betadine] Adverse Reaction (Severe, Verified 07/04/19 10:51) Other BROKE OUT INTO BLISTERS Home Medications: Ambulatory Orders Medication Instructions Recorded Duloxetine Hcl [Cymbalta] 60 mg PO DAILY 02/17/18 Hydromorphone HCl [Dilaudid] 4 mg PO TID PRN PRN 01/13/19 Methadone HCl 30 mg PO TID 01/13/19 Omeprazole 40 mg PO DAILY 01/13/19 Pyridoxine HCl (Vitamin B6) 100 mg PO DAILY 01/13/19 [Vitamin B-6] Dexamethasone 2 mg PO DAILY 07/04/19 Ergocalciferol (Vitamin D2) 50,000 unit PO UD 07/04/19 [Vitamin D2] Iron Polysaccharide Complex 150 mg PO DAILY 07/04/19 [Ferrex 150] Melatonin 10 mg PO QHS 07/04/19 Palbociclib [Ibrance] 100 mg PO UD 07/04/19 Surgical History: Surgical History (Last Reviewed 07/04/19 @ 14:[address] Pawan Gunter MD) History of tonsillectomy and adenoidectomy (Resolved) Z98.890 Aftercare following left ankle joint replacement surgery (Resolved) Z47.1, Z96.662 History of partial mastectomy of both breasts (Resolved) Z90.13 History of breast biopsy (Resolved) Z98.890 Surgical History: - - Left Achilles tendon surgery, lumpectomy of both breasts Psychiatric History: No pertinent psych hx AGATE SETTER History: No pertinent AGATE SETTER history Smoking Status: Former smoker - *Family History Maternal Family History: Family History (Last Reviewed 07/04/19 @ 14:[address] Pawan Gunter MD) Mother Hypertension COPD (chronic obstructive pulmonary disease) Father Cancer Grandmother Breast cancer Grandfather CVA (cerebral vascular accident) History Items: No pertinent history Paternal Family History: Family History (Last Reviewed 07/04/19 @ 14:[address] Pawan Gunter MD) Mother Hypertension COPD (chronic obstructive pulmonary disease) Father Cancer Grandmother Breast cancer Grandfather CVA (cerebral vascular accident) History Items: No pertinent history Sibling Family History: Family History (Last Reviewed 07/04/19 @ 14:[address] Pawan Gunter MD) Mother Hypertension COPD (chronic obstructive pulmonary disease) Father Cancer Grandmother Breast cancer Grandfather CVA (cerebral vascular accident) History Items: No pertinent history Review of Systems Constitutional: Reports: Chills, Fever, Weakness HEENT: Denies: Head Aches, Sinus Congestion, Sinus Drainage Cardiovascular: Denies: Chest Pain, Orthopnea, Palpitations, Paroxysmal Noc. Dyspnea Respiratory: Reports: Cough, Shortness of Breath Gastrointestinal: Denies: Abdominal Pain, Hematemesis, Hematochezia, Nausea, Melena, Vomiting Genitourinary: Denies: Dysuria, Frequency, Hematuria, Urgency Musculoskeletal: Denies: Joint Pain, Joint Tenderness Skin: Denies: Rash Neurological: Denies: Focal weakness, Numbness, Tingling Psychiatric: Reports: Anxiety Hematologic/ Lymphatic: Reports: Adenopathy VTE Information - Inpt Only VTE Present on Admission: No VTE Mechan Device Prophylaxis: None VTE Pharm Prophylaxis ordered?: Yes Patient Problems: Active and Suspected Problems (Last Reviewed 07/04/19 @ 14:[address] Pawan Gunter MD) Viral illness (Acute) Severe sepsis (Acute) Objective: GENERAL: cooperative HEENT: Atraumatic; EYES; Anicteric, Normal Conjunctiva NECK; supple, normal thyroid, RESPIRATORY: Diminished to auscultation CARDIOVASCULAR: Regular S1 S2, GI: soft, normoactive bowel sounds, : No Renal angle tenderness; EXTREMITIES: No edema, no clubbing, MUSCULOSKELETAL: no muscle waisting NEURO: Awake; no lateralizing signs. SKIN: No Rash PSYCH; Flat affect - Physical Exam Vitals/I&O's: Vital Signs Temp Pulse Resp BP Pulse Ox 98.8 F 63 16 106/59 L 96 07/04/19 14:27 07/04/19 14:27 07/04/19 14:27 07/04/19 14:27 07/04/19 14:27 Oxygen Flow Rate (L/min) 2 Oxygen Delivery Method Nasal Cannula Weight: 88.1 kg Body Mass Index (BMI) 42.0 Microbiology Past 72 Hours 07/04/19 12:25 Stool Stool Occult Blood (LAUREN) - Final Occult Blood Positive 07/04/19 10:32 Mucosa - Nose Influenza Types A,B Direct FA (LAUREN) - Final Laboratory Results 07/04/19 10:30: Sodium 137, Potassium 3.7, Chloride 104, Carbon Dioxide 26.0, Anion Gap 7, BUN 12, Creatinine 0.72, Estim Creat Clear Calc 111.23, Est GFR (MDRD) Af Amer 104, Est GFR (MDRD) Non-Af 86, BUN/Creatinine Ratio 16.6, Glucose 97, Calcium 8.2 L, Total Bilirubin 0.80, AST 24, ALT 10 L, Alkaline Phosphatase 63, Troponin I < 0.015, Total Protein 6.5, Albumin 2.4 L, Globulin 4.1, Albumin/Globulin Ratio 0.6 L 07/04/19 10:30: WBC 3.7 L, RBC 1.88 L, Hgb 7.1 L, Hct 21.3 L, MCV 113.3 H, MCH 37.8 H, MCHC 33.3, RDW Std Deviation 63.5 H, RDW Coeff of Jessica 15.9 H, Plt Count 198, MPV 9.6, Immature Gran % (Auto) 1.100 H, Neut % (Auto) 87.4 H, Lymph % (Auto) 7.2 L, [place] % (Auto) 3.2, Eos % (Auto) 0.8, Baso % (Auto) 0.3, Absolute Neuts (auto) 3.3, Absolute Lymphs (auto) 0.27 L, Nucleated RBC % 1.3, Differential Comment COMMENT, Diff Path Review May foll, Reactive Lymphocytes 1+ 07/04/19 10:30: PT 13.9, INR 1.1, APTT 33.1 07/04/19 10:30: Lactic Acid 2.1 H* 07/04/19 10:30: B-Natriuretic Peptide 203.0 H 07/04/19 10:30: Urine Color Yellow, Urine Clarity Clear, Urine pH 6.0, Ur Specific [place] 1.015, Urine Protein Negative, Urine Glucose (UA) Normal, Urine Ketones Negative, Urine Occult Blood Negative, Urine Nitrite Negative, Urine Bilirubin Negative, Urine Urobilinogen 8 H, Ur Leukocyte Esterase 25 H, Urine RBC 0 SEEN, Urine WBC 0-5 SEEN, Ur Squamous Epith Cells 0-5 SEEN, Urine Bacteria 0 SEEN, Urine Mucus 0 SEEN 07/04/19 12:30: Blood Type O POSITIVE, Antibody Screen NEGATIVE, Crossmatch See Detail Current Medications Sodium Chloride () 1,000 mls @ 999 mls/hr IV .Q1H1M ONE Stop: 07/04/19 14:53 Vancomycin HCl 1,250 mg/ (Sodium Chloride) 275 mls @ 167 mls/hr IV X1 ONE Stop: 07/04/19 15:38 Assessment/Plan All Active Problems (Last Reviewed 07/04/19 @ 14:[address] Pawan Gunter MD) Cellulitis (Acute) Viral illness (Acute) Severe sepsis (Acute) History of tonsillectomy and adenoidectomy (Resolved) Aftercare following left ankle joint replacement surgery (Resolved) History of partial mastectomy of both breasts (Resolved) History of breast biopsy (Resolved) Chest pain (Acute) Breast cancer (Resolved) Patient is a 63-year-old lady presented with progressive shortness of breath fever and chills 1. Acute viral syndrome ?CT of the chest obtained on admission demonstrated Diffuse groundglass appearance involving the right upper lobe as well as right middle lobe and areas of the right lower lobe with evidence of a bronchiectasis and scarring in the right lower lobe. Mild degree of increased ground glass appearance in the left upper lobe. This is highly suspicious for viral pneumonia. Patient placed in isolation while was tested for COVID 19 is being pursued 2. Sepsis ?Secondary to suspected viral syndrome with patient lactic acid being greater than 2.1 cultures were sent started on broad-spectrum antibiotic therapy with vancomycin and Zosyn and resuscitated with IV fluid 3. History of breast cancer ?With mets to the bone patient is currently on Ibrance which is being held. 4. Anemia ?Secondary to anemia of malignancy subsequent therapy monitoring H&H with plans to transfuse if hemoglobin falls below 7 or becomes symptomatic 5. History of Takotsubo cardiomyopathy ?Currently stable 6. DVT prophylaxis ?Lovenox Advance planning; did discuss with the patient and family regarding advanced directives as well as CODE STATUS. Did explain the various scenarios involved ( FULL CODE, DNR CCA, DNR CCA with no intubation, and DNR CC and what each meant) patient elected to remain full code with intubation if warranted. Order was placed. Time spent on discussion 18 minutes. Clinical Impression(s) from Imaging Studies Chest CTA 07/04/19 10:14 IMPRESSION: Diffuse groundglass appearance involving the right upper lobe as well as right middle lobe and areas of the right lower lobe with evidence of a bronchiectasis and scarring in the right lower lobe. Mild degree of increased ground glass appearance in the left upper lobe. Electronically Signed: Steve Zelaya, at 12:14 EDT , Service support , Inpatient E&M: 24374 Subs Hosp L3 Procedures: 26757 Advncd Care Plan 30 Min
[2019-07-04] MEDS: 0.9% Normal Saline 1,000 ML 999 ML IV (14:28)
[2019-07-04 14:39] LABS: Reflex Lactate? Y
[2019-07-04 15:48] LABS: Lactic Acid 1.4 mmol/L (0.4-1.9)
[2019-07-04] MEDS: Methadone 10 MG Tablet 30 MG PO ×2 (17:32→23:02)
[2019-07-04] MEDS: Gabapentin 300 MG Capsule PO (17:32)
--- NOTE | 2019-07-04 17:51 | PCM.RX.CS ---
Consult Pharmacy has been consulted to manage selected antiobiotic: Vancomycin Suspected Infection: Pneumonia Prior Doses of Antibiotics Received/Current Regimen: Vancomycin 1250mg IV x1 in ED Labs: Sodium 137 mmol/L (136-145) 07/04/19 10:30 Potassium 3.7 mmol/L (3.5-5.1) 07/04/19 10:30 Chloride 104 mmol/L (98-107) 07/04/19 10:30 Carbon Dioxide 26.0 mmol/L (21.0-32.0) 07/04/19 10:30 Anion Gap 7 (5-15) 07/04/19 10:30 BUN 12 mg/dL (7-18) 07/04/19 10:30 Creatinine 0.72 mg/dL (0.55-1.02) 07/04/19 10:30 Est GFR (MDRD) Af Amer 104 mL/min (>60) 07/04/19 10:30 Est GFR (MDRD) Non-Af 86 mL/min (>60) 07/04/19 10:30 BUN/Creatinine Ratio 16.6 RATIO (10-20) 07/04/19 10:30 Glucose 97 mg/dL (74-106) 07/04/19 10:30 Microbiology: Microbiology 07/04/19 12:50 Mucosa - Nose Respiratory Panel (PCR) - Final 07/04/19 12:25 Stool Stool Occult Blood (LAUREN) - Final Occult Blood Positive 07/04/19 10:32 Mucosa - Nose Influenza Types A,B Direct FA (LAUREN) - Final Weight used for dosin kg Estimated Creatinine Clearance: 111 ml/min Goal Trough: 15-20 mcg/mL Pharmacy Plan for Drug Dosing: Pharmacy consulted to manage vancomycin. The patient received a 1250mg IV x1 dose of vancomycin in the ED. When admitted, the admitting physician ordered a loading dose and a goal trough of 15-20. The patient qualified for a 2000mg IV loading dose. Since the patient already received vancomycin in the ED, a supplemental dose will be given (750mg IV x1); followed by scheduled dosing. PLAN/RECOMMENDATIONS 1. Vancomycin 750mg IV x1 (supplemental dose to achieve a 2,000mg IV load). Administered 07/04/19 @1735 2. Vancomycin 1000mg IV Q8hr to start 07/05/19 @0100 3. Trough prior to the 4th total dose per protocol 07/05/19 @1630 4. Pharmacy Service will continue to monitor and adjust dosing as required.
[2019-07-04] MEDS: MELATONIN 10 MG TABLET PO (23:02)
[2019-07-05] VITALS (17 sets, daily range): BP systolic 94–129; BP diastolic 39–74; PULSE 66–91; RESP 18–20; TEMP 36.7–39.3; O2SAT 92–97
[2019-07-05] MEDS: Vancomycin IV 1,000 MG/200 ML BAG 200 MG IV ×3 (03:24→17:01)
[2019-07-05] MEDS: oxyCODONE 5 MG Tablet 10 MG PO (03:29)
[2019-07-05] MEDS: Acetaminophen 325 MG Tablet 650 MG PO ×2 (03:29→21:31)
[2019-07-05] MEDS: Methadone 10 MG Tablet 30 MG PO ×3 (05:27→21:32)
[2019-07-05 06:26] LABS: Absolute Lymphocyte Count 0.29 X10^3/uL (0.83-4.51); Absolute Neutrophil Count 3.7 X10^3/uL (2.0-7.7); Basophil# 0.01 X10^3/uL; Basophil% 0.2 % (0-1); Eosinophil# 0.07 X10^3/uL; Eosinophils% 1.6 % (0-5); Hemoglobin 6.7 g/dL (12.0-15.0); Lymphocyte # 0.29 X10^3/ul (4.0); Lymphocyte % 6.8 % (19-41); Mean Corp Hgb Conc 33.5 g/dL (32-36); Mean Corpuscular Hgb 37.4 pg (27.0-32.0); Mean Corpuscular Volume 111.7 fL (81-99); Mean Platelet Vol. 9.6 fl (6.2-12.0); Monocyte# 0.12 X10^3/uL; Monocyte% 2.8 % (0-10); NRBC Flagged by Analyzer 2.8 % (0-5); Neutrophil # 3.65 X10^3/uL (2.7-7.7); POSITIVE DIFFERENTIAL YES; POSITIVE MORPHOLOGY YES; Platelet Count 204 K/mm3 (150-450); RBC Distribution Width CV 16.3 % (11.6-14.6); RBC Distribution Width SD 64.2 fl (35.1-43.9); Red Blood Count 1.79 M/mm3 (4.2-5.4); White Blood Count 4.3 K/mm3 (4.4-11.0)
[2019-07-05 06:27] LABS: Differential Indicated SCAN CRITERIA MET
[2019-07-05 06:39] LABS: Differential Comment SCANNED; Platelet Estimate ADEQUATE (ADEQ); Reactive Lymphocyte RARE
[2019-07-05 06:55] LABS: Anion Gap 8 (5-15); BUN 13 mg/dL (7-18); Calcium,Total 7.6 mg/dL (8.5-10.1); Chloride 102 mmol/L (98-107); Creatinine, Serum 0.65 mg/dL (0.55-1.02); EST Glomerular Filtration Rate 98 mL/min (>60); Est Glom Filt Rate - Afr Amer 118 mL/min (>60); Estimated Creatinine Clearance 92.58 ml/min; Glucose 78 mg/dL (74-106); Magnesium 1.5 mg/dL (1.6-2.6); Potassium 4.1 mmol/L (3.5-5.1); Sodium Level 134 mmol/L (136-145)
--- NOTE | 2019-07-05 07:56 | PCM.PN.HOSP ---
Patient Problems: Active and Suspected Problems (Last Reviewed 07/04/19 @ 14:[address] Pawan Gunter MD) Viral illness (Acute) Severe sepsis (Acute) Reason for Visit: Sepsis Subjective: Patient seen still appears ill looking. Patient did have significant drop in her hemoglobin level necessitating patient being transfused with 1 unit PRBC Objective: GENERAL: cooperative HEENT: Atraumatic; EYES; Anicteric, Normal Conjunctiva NECK; supple, normal thyroid, RESPIRATORY: Diminished to auscultation CARDIOVASCULAR: Regular S1 S2, GI: soft, normoactive bowel sounds, : No Renal angle tenderness; EXTREMITIES: No edema, no clubbing, MUSCULOSKELETAL: no muscle waisting NEURO: Awake; no lateralizing signs. SKIN: No Rash PSYCH; Flat affect Vitals/I&O's: Vital Signs Temp Pulse Resp BP Pulse Ox 99.7 F H 70 20 H 102/51 L 94 07/05/19 05:23 07/05/19 07:00 07/05/19 05:23 07/05/19 05:23 07/05/19 07:26 Oxygen Flow Rate (L/min) 3.5 Oxygen Delivery Method Nasal Cannula Weight: 84.3 kg Body Mass Index (BMI) 27.4 Intake and Output for Last 24 Hours 07/03/19 07/04/19 07/05/19 23:59 23:59 23:59 Intake Total 2109 1450 / 1450 Balance 2109 1450 / 1450 Microbiology Past 72 Hours 07/04/19 10:30 Urine, Clean Catch Legionella Antigen - Final 07/04/19 10:30 Urine, Clean Catch Streptococcus pneumoniae Antigen (M - Final 07/04/19 12:50 Mucosa - Nose Respiratory Panel (PCR) - Final 07/04/19 12:25 Stool Stool Occult Blood (LAUREN) - Final Occult Blood Positive 07/04/19 10:32 Mucosa - Nose Influenza Types A,B Direct FA (LAUREN) - Final Laboratory Results 07/04/19 10:30: Sodium 137, Potassium 3.7, Chloride 104, Carbon Dioxide 26.0, Anion Gap 7, BUN 12, Creatinine 0.72, Estim Creat Clear Calc 111.23, Est GFR (MDRD) Af Amer 104, Est GFR (MDRD) Non-Af 86, BUN/Creatinine Ratio 16.6, Glucose 97, Calcium 8.2 L, Total Bilirubin 0.80, AST 24, ALT 10 L, Alkaline Phosphatase 63, Troponin I < 0.015, Total Protein 6.5, Albumin 2.4 L, Globulin 4.1, Albumin/Globulin Ratio 0.6 L 07/04/19 10:30: WBC 3.7 L, RBC 1.88 L, Hgb 7.1 L, Hct 21.3 L, MCV 113.3 H, MCH 37.8 H, MCHC 33.3, RDW Std Deviation 63.5 H, RDW Coeff of Jessica 15.9 H, Plt Count 198, MPV 9.6, Immature Gran % (Auto) 1.100 H, Neut % (Auto) 87.4 H, Lymph % (Auto) 7.2 L, [place] % (Auto) 3.2, Eos % (Auto) 0.8, Baso % (Auto) 0.3, Absolute Neuts (auto) 3.3, Absolute Lymphs (auto) 0.27 L, Nucleated RBC % 1.3, Differential Comment COMMENT, Diff Path Review August foll, Reactive Lymphocytes 1+ 07/04/19 10:30: PT 13.9, INR 1.1, APTT 33.1 07/04/19 10:30: Lactic Acid 2.1 H* 07/04/19 10:30: B-Natriuretic Peptide 203.0 H 07/04/19 10:30: Urine Color Yellow, Urine Clarity Clear, Urine pH 6.0, Ur Specific [place] 1.015, Urine Protein Negative, Urine Glucose (UA) Normal, Urine Ketones Negative, Urine Occult Blood Negative, Urine Nitrite Negative, Urine Bilirubin Negative, Urine Urobilinogen 8 H, Ur Leukocyte Esterase 25 H, Urine RBC 0 SEEN, Urine WBC 0-5 SEEN, Ur Squamous Epith Cells 0-5 SEEN, Urine Bacteria 0 SEEN, Urine Mucus 0 SEEN 07/04/19 12:30: Blood Type O POSITIVE, Antibody Screen NEGATIVE, Crossmatch See Detail 07/04/19 15:08: Lactic Acid 1.4 07/04/19 17:00: Miscellaneous Test Pending 07/05/19 06:18: WBC 4.3 L, RBC 1.79 L, Hgb 6.7 L, Hct 20.0 L, MCV 111.7 H, MCH 37.4 H, MCHC 33.5, RDW Std Deviation 64.2 H, RDW Coeff of Jessica 16.3 H, Plt Count 204, MPV 9.6, Immature Gran % (Auto) 2.600 H, Neut % (Auto) 86.0 H, Lymph % (Auto) 6.8 L, [place] % (Auto) 2.8, Eos % (Auto) 1.6, Baso % (Auto) 0.2, Absolute Neuts (auto) 3.7, Absolute Lymphs (auto) 0.29 L, Nucleated RBC % 2.8, Differential Comment SCANNED, Diff Path Review May foll, Reactive Lymphocytes RARE, Platelet Estimate ADEQUATE 07/05/19 06:18: Sodium 134 L, Potassium 4.1, Chloride 102, Carbon Dioxide 24.0, Anion Gap 8, BUN 13, Creatinine 0.65, Estim Creat Clear Calc 92.58, Est GFR (MDRD) Af Amer 118, Est GFR (MDRD) Non-Af 98, BUN/Creatinine Ratio 20.0, Glucose 78, Calcium 7.6 L, Magnesium 1.5 L Current Medications Acetaminophen (Tylenol) 650 mg PO Q6H PRN PRN PRN Reason: Pain Score 1-10/Temp > 100.7 F Last Admin: 07/05/19 03:29 Dose: 650 mg Documented by: Al Hydroxide/Mg Hydroxide (Mylanta Ii) 30 ml PO Q6H PRN PRN PRN Reason: Gastric Burning Albuterol Sulfate (Ventolin Aerosols) 2.5 mg INHALATION Q2H PRN PRN PRN Reason: Shortness of Breath/Wheezing Dexamethasone (Decadron) [facility] Duloxetine HCl (Cymbalta) 60 mg PO DAILY [facility] Enoxaparin Sodium (Lovenox) 40 mg SC DAILY [facility] Ergocalciferol (Vitamin D) 50,000 unit PO MoTh@1000 [facility] Gabapentin (Neurontin) 300 mg PO TIDCM [facility] Last Admin: 07/04/19 17:32 Dose: 300 mg Documented by: Guaifenesin (Robitussin) 20 ml PO Q4H PRN PRN PRN Reason: COUGH Potassium Chloride/Sodium Chloride () 1,000 mls @ 125 mls/hr IV .Q8H [facility] Last Admin: 07/05/19 05:25 Dose: 125 mls/hr Documented by: Piperacillin Sod/Tazobactam (Sod 3.375 gm/ Sodium Chloride) 50 mls @ 12.5 mls/hr IV Q8 [facility] Last Admin: 07/05/19 05:29 Dose: 12.5 mls/hr Documented by: Vancomycin IV Pharmacy to Dose (1 ea/ Sodium Chloride) 500 mls @ 250 mls/hr IV PRN PRN; Protocol PRN Reason: Rx to Dose Vancomycin HCl (Vancomycin) 1,000 mg in 200 mls @ 200 mls/hr IV Q8H [facility] Last Infusion: 07/05/19 05:00 Dose: Infused Documented by: Magnesium Hydroxide (Milk Of Magnesia) 30 ml PO DAILY PRN PRN PRN Reason: Constipation Magnesium Oxide (Mag-Ox 400) 400 mg PO X1 ONE Stop: 07/05/19 07:56 Magnesium Oxide (Mag-Ox 400) 400 mg PO BIDCM [facility] Melatonin (Melatonin) 10 mg PO QHS [facility] Last Admin: 07/04/19 23:02 Dose: 10 mg Documented by: Methadone HCl () 30 mg PO TID [facility] Last Admin: 07/05/19 05:27 Dose: 30 mg Documented by: Nutritional Formula (Lactose Free) (Ensure Enlive) 120 ml PO 4X/DAY [facility] Last Admin: 07/04/19 23:01 Dose: 120 ml Documented by: Ondansetron HCl (Zofran) 4 mg IV Q8H PRN PRN PRN Reason: NAUSEA/VOMITING Oxycodone HCl (Oxyir) 5 mg PO Q4H PRN PRN PRN Reason: Pain Score 4-5/10 Oxycodone HCl (Oxyir) 10 mg PO Q4H PRN PRN PRN Reason: Pain Score 6-10/10 Last Admin: 07/05/19 03:29 Dose: 10 mg Documented by: Pantoprazole Sodium (Protonix) 40 mg PO DAILY [facility] Polysaccharide Iron Complex (Ferrex 150) 150 mg PO DAILY [facility] Pyridoxine HCl (Vitamin B-6) 100 mg PO DAILY [facility] Sodium Chloride () 10 - 40 ml IV UD PRN PRN Reason: SALINE FLUSH STROKE Vital Signs/Narrative: Vital Signs Temp Pulse Resp BP Pulse Ox 07/05/19 07:26 94 07/05/19 07:00 70 07/05/19 05:23 99.7 F H 76 20 H 102/51 L 94 07/05/19 04:07 78 Medical Necessity - Tobacco Use Smoking Status: Former smoker Tobacco Use: Non-smoker Assessment/Plan All Active Problems (Last Reviewed 07/04/19 @ 14:[address] Pawan Gunter MD) Cellulitis (Acute) Viral illness (Acute) Severe sepsis (Acute) History of tonsillectomy and adenoidectomy (Resolved) Aftercare following left ankle joint replacement surgery (Resolved) History of partial mastectomy of both breasts (Resolved) History of breast biopsy (Resolved) Chest pain (Acute) Breast cancer (Resolved) Patient is a 63-year-old lady presented with progressive shortness of breath fever and chills 1. Acute viral syndrome ?CT of the chest obtained on admission demonstrated Diffuse groundglass appearance involving the right upper lobe as well as right middle lobe and areas of the right lower lobe with evidence of a bronchiectasis and scarring in the right lower lobe. Mild degree of increased ground glass appearance in the left upper lobe. This is highly suspicious for viral pneumonia. Patient placed in isolation while was tested for COVID 19 is being pursued ?07/05/2019; COVID 19 test results still pending. Patient was seen in consultation by Dr. Leggett with infectious disease Case discussed with him. 2. Sepsis ?Secondary to suspected viral syndrome with patient lactic acid being greater than 2.1 cultures were sent started on broad-spectrum antibiotic therapy with vancomycin and Zosyn and resuscitated with IV fluid ?07/05/2019: Cultures still pending 3. History of breast cancer ?With mets to the bone patient is currently on Ibrance which is being held. 4. Anemia ?Secondary to anemia of malignancy subsequent therapy monitoring H&H with plans to transfuse if hemoglobin falls below 7 or becomes symptomatic ?07/05/2019 and order was given for patient to be transfused with 1 unit PRBC with hemoglobin having dropped to 6.7. Posttransfusion H&H ordered 5. History of Takotsubo cardiomyopathy ?Currently stable 6. DVT prophylaxis ?Lovenox 7. Hyponatremia ?Monitoring daily BMPs 8. Hypomagnesemia corrected per protocol 9. Hypocalcemia ?Initiated calcium supplementation Inpatient E&M: [id number] [place] [id number]
[2019-07-05] MEDS: dexAMETHasone 4 MG Tablet 2 MG PO (09:08)
[2019-07-05] MEDS: Gabapentin 300 MG Capsule PO ×3 (09:09→16:12)
[2019-07-05] MEDS: Pyridoxine HCl 100 MG Tablet PO (09:09)
[2019-07-05] MEDS: DULoxetine Hcl 60 MG Capsule PO (09:10)
[2019-07-05] MEDS: Magnesium Oxide 400 MG Tablet PO ×2 (09:10→16:12)
[2019-07-05] MEDS: Iron Polysaccharide Complex 150 MG CAPSULE PO (09:10)
[2019-07-05] MEDS: Pantoprazole Sodium 40 MG Tablet PO (09:10)
[2019-07-05] MEDS: Enoxaparin 40 MG/0.4 ML Syringe SC (09:13)
--- NOTE | 2019-07-05 10:03 | PCM.HP.ID ---
Problem List (1) Viral illness Status: Acute Reason for Consult: suspect covid Consulted by: Dr. Gunter History of Present Illness: The patient is a 63 year old F with breast cancer, lives at [facility], presented with about a week of fever, chills, dry cough, not feeling well. Some headache. Had new dyspnea, sent to ED. Fever to 102.8, CT chest done, admitted on vanc/zosyn. Feeling slightly better today. Full ROS Performed and neg except as noted above. - Medical History Past Medical History (Chronic Problems): Chronic Problems (Last Reviewed 07/04/19 @ 14:[address] 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 per cath 10/22 Hx of breast cancer (Chronic) Allergies/Adverse Reactions: Allergies povidone-iodine [From Betadine] Adverse Reaction (Severe, Verified 07/04/19 10:51) Other BROKE OUT INTO BLISTERS soap [From Betadine] Adverse Reaction (Severe, Verified 07/04/19 10:51) Other BROKE OUT INTO BLISTERS Home Medications: Ambulatory Orders Medication Instructions Recorded Duloxetine Hcl [Cymbalta] 60 mg PO DAILY 02/17/18 Hydromorphone HCl [Dilaudid] 4 mg PO TID PRN PRN 01/13/19 Methadone HCl 30 mg PO TID 01/13/19 Omeprazole 40 mg PO DAILY 01/13/19 Pyridoxine HCl (Vitamin B6) 100 mg PO DAILY 01/13/19 [Vitamin B-6] Dexamethasone 2 mg PO DAILY 07/04/19 Ergocalciferol (Vitamin D2) 50,000 unit PO UD 07/04/19 [Vitamin D2] Iron Polysaccharide Complex 150 mg PO DAILY 07/04/19 [Ferrex 150] Melatonin 10 mg PO QHS 07/04/19 Palbociclib [Ibrance] 100 mg PO UD 07/04/19 Senna [Senokot] 2 tab PO DAILY 07/04/19 - Social History SMOKING STATUS:: Former smoker Vital Signs Temp Pulse Resp BP Pulse Ox 98.0 F 72 18 105/56 L 94 07/05/19 09:05 07/05/19 09:05 07/05/19 09:05 07/05/19 09:05 07/05/19 09:05 Oxygen Flow Rate (L/min) 4 Oxygen Delivery Method Nasal Cannula Weight: 84.3 kg Body Mass Index (BMI) 27.4 Microbiology Past 72 Hours 07/04/19 10:30 Legionella Antigen - Final Urine, Clean Catch 07/04/19 10:30 Streptococcus pneumoniae Antigen (M - Final Urine, Clean Catch 07/04/19 12:50 Respiratory Panel (PCR) - Final Mucosa - Nose 07/04/19 12:25 Stool Occult Blood (LAUREN) - Final Stool Occult Blood Positive 07/04/19 10:32 Influenza Types A,B Direct FA (LAUREN) - Final Mucosa - Nose Laboratory Tests Past 24 Hrs 07/04/19 07/04/19 07/04/19 10:30 10:30 10:30 WBC 3.7 L RBC 1.88 L Hgb 7.1 L Hct 21.3 L MCV 113.3 H MCH 37.8 H MCHC 33.3 RDW Std Deviation 63.5 H RDW Coeff of Jessica 15.9 H Plt Count 198 MPV 9.6 Immature Gran % (Auto) 1.100 H Neut % (Auto) 87.4 H Lymph % (Auto) 7.2 L Hope[place] % (Auto) 3.2 Eos % (Auto) 0.8 Baso % (Auto) 0.3 Absolute Neuts (auto) 3.3 Absolute Lymphs (auto) 0.27 L Nucleated RBC % 1.3 Differential Comment COMMENT Diff Path Review May foll Reactive Lymphocytes 1+ Platelet Estimate PT 13.9 INR 1.1 APTT 33.1 Sodium 137 Potassium 3.7 Chloride 104 Carbon Dioxide 26.0 Anion Gap 7 BUN 12 Creatinine 0.72 Estim Creat Clear Calc 111.23 Est GFR (MDRD) Af Amer 104 Est GFR (MDRD) Non-Af 86 BUN/Creatinine Ratio 16.6 Glucose 97 Lactic Acid Calcium 8.2 L Magnesium Total Bilirubin 0.80 AST 24 ALT 10 L Alkaline Phosphatase 63 Troponin I < 0.015 B-Natriuretic Peptide Total Protein 6.5 Albumin 2.4 L Globulin 4.1 Albumin/Globulin Ratio 0.6 L Urine Color Urine Clarity Urine pH Ur Specific Redstone Urine Protein Urine Glucose (UA) Urine Ketones Urine Occult Blood Urine Nitrite Urine Bilirubin Urine Urobilinogen Ur Leukocyte Esterase Urine RBC Urine WBC Ur Squamous Epith Cells Urine Bacteria Urine Mucus COVID-19 (RYAN) Miscellaneous Test Blood Type Antibody Screen Crossmatch 07/04/19 07/04/19 07/04/19 10:30 10:30 10:30 WBC RBC Hgb Hct MCV MCH MCHC RDW Std Deviation RDW Coeff of Jessica Plt Count MPV Immature Gran % (Auto) Neut % (Auto) Lymph % (Auto) Hopewell % (Auto) Eos % (Auto) Baso % (Auto) Absolute Neuts (auto) Absolute Lymphs (auto) Nucleated RBC % Differential Comment Diff Path Review Reactive Lymphocytes Platelet Estimate PT INR APTT Sodium Potassium Chloride Carbon Dioxide Anion Gap BUN Creatinine Estim Creat Clear Calc Est GFR (MDRD) Af Amer Est GFR (MDRD) Non-Af BUN/Creatinine Ratio Glucose Lactic Acid 2.1 H* Calcium Magnesium Total Bilirubin AST ALT Alkaline Phosphatase Troponin I B-Natriuretic Peptide 203.0 H Total Protein Albumin Globulin Albumin/Globulin Ratio Urine Color Yellow Urine Clarity Clear Urine pH 6.0 Ur Specific Redstone 1.015 Urine Protein Negative Urine Glucose (UA) Normal Urine Ketones Negative Urine Occult Blood Negative Urine Nitrite Negative Urine Bilirubin Negative Urine Urobilinogen 8 H Ur Leukocyte Esterase 25 H Urine RBC 0 SEEN Urine WBC 0-5 SEEN Ur Squamous Epith Cells 0-5 SEEN Urine Bacteria 0 SEEN Urine Mucus 0 SEEN COVID-19 (RYAN) Miscellaneous Test Blood Type Antibody Screen Crossmatch 07/04/19 07/04/19 07/04/19 12:30 15:08 17:00 WBC RBC Hgb Hct MCV MCH MCHC RDW Std Deviation RDW Coeff of Jessica Plt Count MPV Immature Gran % (Auto) Neut % (Auto) Lymph % (Auto) Hope[place] % (Auto) Eos % (Auto) Baso % (Auto) Absolute Neuts (auto) Absolute Lymphs (auto) Nucleated RBC % Differential Comment Diff Path Review Reactive Lymphocytes Platelet Estimate PT INR APTT Sodium Potassium Chloride Carbon Dioxide Anion Gap BUN Creatinine Estim Creat Clear Calc Est GFR (MDRD) Af Amer Est GFR (MDRD) Non-Af BUN/Creatinine Ratio Glucose Lactic Acid 1.4 Calcium Magnesium Total Bilirubin AST ALT Alkaline Phosphatase Troponin I B-Natriuretic Peptide Total Protein Albumin Globulin Albumin/Globulin Ratio Urine Color Urine Clarity Urine pH Ur Specific Redstone Urine Protein Urine Glucose (UA) Urine Ketones Urine Occult Blood Urine Nitrite Urine Bilirubin Urine Urobilinogen Ur Leukocyte Esterase Urine RBC Urine WBC Ur Squamous Epith Cells Urine Bacteria Urine Mucus COVID-19 (RYAN) Miscellaneous Test Cancelled Blood Type O POSITIVE Antibody Screen NEGATIVE Crossmatch See Detail 07/04/19 07/05/19 07/05/19 17:00 06:18 06:18 WBC 4.3 L RBC 1.79 L Hgb 6.7 L Hct 20.0 L MCV 111.7 H MCH 37.4 H MCHC 33.5 RDW Std Deviation 64.2 H RDW Coeff of Jessica 16.3 H Plt Count 204 MPV 9.6 Immature Gran % (Auto) 2.600 H Neut % (Auto) 86.0 H Lymph % (Auto) 6.8 L Hope[place] % (Auto) 2.8 Eos % (Auto) 1.6 Baso % (Auto) 0.2 Absolute Neuts (auto) 3.7 Absolute Lymphs (auto) 0.29 L Nucleated RBC % 2.8 Differential Comment SCANNED Diff Path Review May foll Reactive Lymphocytes RARE Platelet Estimate ADEQUATE PT INR APTT Sodium 134 L Potassium 4.1 Chloride 102 Carbon Dioxide 24.0 Anion Gap 8 BUN 13 Creatinine 0.65 Estim Creat Clear Calc 92.58 Est GFR (MDRD) Af Amer 118 Est GFR (MDRD) Non-Af 98 BUN/Creatinine Ratio 20.0 Glucose 78 Lactic Acid Calcium 7.6 L Magnesium 1.5 L Total Bilirubin AST ALT Alkaline Phosphatase Troponin I B-Natriuretic Peptide Total Protein Albumin Globulin Albumin/Globulin Ratio Urine Color Urine Clarity Urine pH Ur Specific Redstone Urine Protein Urine Glucose (UA) Urine Ketones Urine Occult Blood Urine Nitrite Urine Bilirubin Urine Urobilinogen Ur Leukocyte Esterase Urine RBC Urine WBC Ur Squamous Epith Cells Urine Bacteria Urine Mucus COVID-19 (RYAN) Pending Miscellaneous Test Blood Type Antibody Screen Crossmatch - Other Studies Radiology: [] reviewed images, CT chest bilat ground glass Other Studies: [] Route of nutrition/ use of supplements: [] Nutritional Intake: [] IV Site: [] Poon Catheter: [] - Physical Exam General: Alert, Oriented x3, Cooperative, No apparent distress HEENT: Atraumatic, PERRLA, EOMI Neck: Supple, No Nodes Lungs: Diminished Cardiovascular: Regular rate, Regular Rhythm Abdomen: Soft, Non Tender, Non-Distended Extremities: No edema Skin: No rashes IV Site: Peripheral, without redness Musculoskeletal: No Tenderness to Palpation of Joints or Extremities - Assessment/Plan Antibiotics: [] Assessment/Plan: [] Active and Suspected Problems (Last Reviewed 07/04/19 @ 14:[address] Pawan Gunter MD) Viral illness (Acute) Severe sepsis (Acute) severe sepsis, fever, cough, SOB, lymphopenia, CT chest with bilat ground glass changes, lactic acidosis. Resp pcr panel neg. COVID sent through OD. Cont vanc/zosyn for now. Will follow, thank you.
--- NOTE | 2019-07-05 10:20 | NURSING ---
sister Alba called for update, asked patient if ok to provide update and she agreed. questions answered and explained that the covid test result is still pending. verified correct contact information and will update with any changes
[2019-07-05 12:06] LABS: Pathologist Review Reviewed
[2019-07-05 12:09] LABS: Pathologist Review Reviewed
--- NOTE | 2019-07-05 12:58 | CASEMGMT ---
Addendum entered by Aleyda Yang 07/05/19 15:16: SW received call from YOHANA Lane at [facility] stating per their DON Linda, [facility] will need results of COVID 19 and a copy of those results before pt is able to return to [facility]. Addendum entered by Aleyda Yang 07/05/19 13:29: Pt also has Stephany Anders as CM through [facility]. LORETTA placed a call to Stephany and updated her on pt's admission to [facility]. Original Note: Social Work Note Pt is listed as being from [facility]. LORETTA placed a call to pt's room to confirm discharge plans. Pt is currently in isolation due to COVID 19 testing. SW introduced self and role at [facility]. Pt is alert and orientated x3. Pt confirms that she is from [facility] and will be returning there at discharge. LORETTA placed a call to [facility] and spoke with RN on [facility]. RN confirms pt is from [facility] side. RN states pt was not on any oxygen at [facility]. LORETTA updated RN that pt is not discharging today, likely no discharge tomorrow, but maybe over the weekend. SW informed RN that pt is getting tested for COVID 19 but pt will likely discharge before results are available. RN states pt should be able to return without the results but she will check with her DON to make sure. LORETTA updated RN that as long as pt doesn't need anything skilled at discharge, pt is requesting to return to [facility] side. RN states understanding. RN also states pt is currently active with [facility]. LORETTA placed a call to [facility] and left message regarding pt's admission to [facility]. LORETTA faxed updated clinicals to [facility]. Plan: Return to [facility] once medically cleared. If pt needs skilled at discharge, pt would need pre-cert to return. Aleyda Yang MANUFACTURING SOFTWARE ENGINEER, RATOPRINTER
[2019-07-05] MEDS: 0.9% Saline Lock 10 ML Syringe IV ×2 (15:22→17:01)
[2019-07-05 16:56] LABS: Hemoglobin 7.5 g/dL (12.0-15.0)
[2019-07-05 17:39] LABS: Vancomycin, Trough Level 24.7 ug/mL (5.0-15.0)
--- NOTE | 2019-07-05 18:44 | PCM.RX.CS ---
Consult Pharmacy has been consulted to manage selected antiobiotic: Vancomycin Type of Consult: Follow-up Suspected Infection: Pneumonia Prior Doses of Antibiotics Received/Current Regimen: Has been on 1gm iv q8h. Labs: Sodium 134 mmol/L (136-145) L 07/05/19 06:18 Potassium 4.1 mmol/L (3.5-5.1) 07/05/19 06:18 Chloride 102 mmol/L (98-107) 07/05/19 06:18 Carbon Dioxide 24.0 mmol/L (21.0-32.0) 07/05/19 06:18 Anion Gap 8 (5-15) 07/05/19 06:18 BUN 13 mg/dL (7-18) 07/05/19 06:18 Creatinine 0.65 mg/dL (0.55-1.02) 07/05/19 06:18 Est GFR (MDRD) Af Amer 118 mL/min (>60) 07/05/19 06:18 Est GFR (MDRD) Non-Af 98 mL/min (>60) 07/05/19 06:18 BUN/Creatinine Ratio 20.0 RATIO (10-20) 07/05/19 06:18 Glucose 78 mg/dL (74-106) 07/05/19 06:18 Vancomycin Trough 24.7 ug/mL (5.0-15.0) H 07/05/19 16:35 Microbiology: Microbiology 07/04/19 10:30 Urine, Clean Catch Legionella Antigen - Final 07/04/19 10:30 Urine, Clean Catch Streptococcus pneumoniae Antigen (M - Final 07/04/19 12:50 Mucosa - Nose Respiratory Panel (PCR) - Final 07/04/19 12:25 Stool Stool Occult Blood (LAUREN) - Final Occult Blood Positive 07/04/19 10:32 Mucosa - Nose Influenza Types A,B Direct FA (LAUREN) - Final Weight used for dosin.3 kg Estimated Creatinine Clearance: ~93ml/min Goal Trough: 15-20 mcg/mL Pharmacy Plan for Drug Dosing: Trough level today 24.7. Will hold further vancomycin dosing and get another random level in AM 07.06.19. Will determine dosing at that time. Pharmacy Service will continue to monitor and adjust dosing as required. Follow-Up Labs: Trough Vancomycin - random 07.06.19 @0830
[2019-07-05] MEDS: MELATONIN 10 MG TABLET PO (21:32)
[2019-07-06] VITALS (31 sets, daily range): BP systolic 80–130; BP diastolic 49–70; PULSE 57–81; RESP 14–24; TEMP 36.4–37.4; O2SAT 86–99
[2019-07-06] MEDS: Methadone 10 MG Tablet 30 MG PO ×2 (05:36→14:26)
[2019-07-06] MEDS: Acetaminophen 325 MG Tablet 650 MG PO (06:13)
[2019-07-06 07:23] LABS: Hematocrit 23.2 % (37-47); Hemoglobin 7.5 g/dL (12.0-15.0); Mean Corp Hgb Conc 32.3 g/dL (32-36); Mean Corpuscular Hgb 35.2 pg (27.0-32.0); Mean Corpuscular Volume 108.9 fL (81-99); Mean Platelet Vol. 9.8 fl (6.2-12.0); POSITIVE COUNT YES; POSITIVE DIFFERENTIAL YES; POSITIVE MORPHOLOGY YES; Platelet Count 162 K/mm3 (150-450); RBC Distribution Width CV 19.1 % (11.6-14.6); RBC Distribution Width SD 74.5 fl (35.1-43.9); Red Blood Count 2.13 M/mm3 (4.2-5.4); White Blood Count 2.9 K/mm3 (4.4-11.0)
[2019-07-06 07:29] LABS: Differential Indicated MANUAL DIFF
--- NOTE | 2019-07-06 07:39 | PCM.PN.HOSP ---
Patient Problems: Active and Suspected Problems (Last Reviewed 07/04/19 @ 14:[address] Pawan Gunter MD) Viral illness (Acute) Severe sepsis (Acute) Reason for Visit: Acute viral syndrome Subjective: Admit to some improvement in her overall condition. Hemoglobin came up to 7.5 following his blood transfusion. Potassium this morning is 5.2. Patient potassium infusion subsequently discontinued. Objective: GENERAL: cooperative HEENT: Atraumatic; EYES; Anicteric, Normal Conjunctiva NECK; supple, normal thyroid, RESPIRATORY: Diminished to auscultation CARDIOVASCULAR: Regular S1 S2, GI: soft, normoactive bowel sounds, : No Renal angle tenderness; EXTREMITIES: No edema, no clubbing, MUSCULOSKELETAL: no muscle waisting NEURO: Awake; no lateralizing signs. SKIN: No Rash PSYCH; Flat affect Vitals/I&O's: Vital Signs Temp Pulse Resp BP Pulse Ox 98.9 F 73 19 H 115/70 95 07/06/19 05:34 07/06/19 05:34 07/06/19 05:34 07/06/19 05:34 07/06/19 05:34 Oxygen Flow Rate (L/min) 5 Oxygen Delivery Method Nasal Cannula Weight: 84.3 kg Body Mass Index (BMI) 27.4 Intake and Output for Last 24 Hours 07/04/19 07/05/19 07/06/19 23:59 23:59 23:59 Intake Total 2109 3429.99 / 3679.99 1645.83 / 1645.83 Balance 2109 3429.99 / 3679.99 1645.83 / 1645.83 Microbiology Past 72 Hours 07/04/19 10:30 Urine, Clean Catch Legionella Antigen - Final 07/04/19 10:30 Urine, Clean Catch Streptococcus pneumoniae Antigen (M - Final 07/04/19 12:50 Mucosa - Nose Respiratory Panel (PCR) - Final 07/04/19 12:25 Stool Stool Occult Blood (LAUREN) - Final Occult Blood Positive 07/04/19 10:32 Mucosa - Nose Influenza Types A,B Direct FA (LAUREN) - Final Laboratory Results 07/04/19 10:30: Diff Path Review Reviewed 07/04/19 12:30: Blood Type O POSITIVE, Antibody Screen NEGATIVE, Crossmatch See Detail 07/04/19 12:30: Crossmatch See Detail 07/04/19 17:00: Miscellaneous Test Cancelled 07/04/19 17:00: COVID-19 (RYAN) Pending 07/05/19 06:18: Diff Path Review Reviewed 07/05/19 16:35: Vancomycin Trough 24.7 H 07/05/19 16:35: Hgb 7.5 L, Hct 23.0 L 07/06/19 07:05: WBC 2.9 L, RBC 2.13 L, Hgb 7.5 L, Hct 23.2 L, MCV 108.9 H, MCH 35.2 H, MCHC 32.3, RDW Std Deviation 74.5 H, RDW Coeff of Jessica 19.1 H, Plt Count 162, MPV 9.8, Neut % (Auto) Not Reportable, Absolute Neuts (auto) Pending 07/06/19 07:05: Sodium Pending, Potassium Pending, Chloride Pending, Carbon Dioxide Pending, Anion Gap Pending, BUN Pending, Creatinine Pending, Est GFR (MDRD) Af Amer Pending, Est GFR (MDRD) Non-Af Pending, BUN/Creatinine Ratio Pending, Glucose Pending, Calcium Pending Current Medications Acetaminophen (Tylenol) 650 mg PO Q6H PRN PRN PRN Reason: Pain Score 1-10/Temp > 100.7 F Last Admin: 07/06/19 06:13 Dose: 650 mg Documented by: Al Hydroxide/Mg Hydroxide (Mylanta Ii) 30 ml PO Q6H PRN PRN PRN Reason: Gastric Burning Albuterol Sulfate (Ventolin Aerosols) 2.5 mg INHALATION Q2H PRN PRN PRN Reason: Shortness of Breath/Wheezing Dexamethasone (Decadron) [facility] Last Admin: 07/05/19 09:08 Dose: 2 mg Documented by: Duloxetine HCl (Cymbalta) 60 mg PO DAILY [facility] Last Admin: 07/05/19 09:10 Dose: 60 mg Documented by: Enoxaparin Sodium (Lovenox) 40 mg SC DAILY [facility] Last Admin: 07/05/19 09:13 Dose: 40 mg Documented by: Ergocalciferol (Vitamin D) 50,000 unit PO MoTh@1000 [facility] Last Admin: 07/05/19 09:10 Dose: 50,000 unit Documented by: Gabapentin (Neurontin) 300 mg PO TIDCM [facility] Last Admin: 07/05/19 16:12 Dose: 300 mg Documented by: Guaifenesin (Robitussin) 20 ml PO Q4H PRN PRN PRN Reason: COUGH Potassium Chloride/Sodium Chloride () 1,000 mls @ 125 mls/hr IV .Q8H [facility] Last Admin: 07/06/19 03:38 Dose: 125 mls/hr Documented by: Piperacillin Sod/Tazobactam (Sod 3.375 gm/ Sodium Chloride) 50 mls @ 12.5 mls/hr IV Q8 [facility] Last Admin: 07/06/19 05:37 Dose: 12.5 mls/hr Documented by: Vancomycin IV Pharmacy to Dose (1 ea/ Sodium Chloride) 500 mls @ 250 mls/hr IV PRN PRN; Protocol PRN Reason: Rx to Dose Magnesium Hydroxide (Milk Of Magnesia) 30 ml PO DAILY PRN PRN PRN Reason: Constipation Magnesium Oxide (Mag-Ox 400) 400 mg PO BIDCM [facility] Last Admin: 07/05/19 16:12 Dose: 400 mg Documented by: Melatonin (Melatonin) 10 mg PO QHS [facility] Last Admin: 07/05/19 21:32 Dose: 10 mg Documented by: Methadone HCl () 30 mg PO TID [facility] Last Admin: 07/06/19 05:36 Dose: 30 mg Documented by: Nutritional Formula (Lactose Free) (Ensure Enlive) 120 ml PO 4X/DAY [facility] Last Admin: 07/05/19 21:33 Dose: 120 ml Documented by: Ondansetron HCl (Zofran) 4 mg IV Q8H PRN PRN PRN Reason: NAUSEA/VOMITING Oxycodone HCl (Oxyir) 5 mg PO Q4H PRN PRN PRN Reason: Pain Score 4-5/10 Oxycodone HCl (Oxyir) 10 mg PO Q4H PRN PRN PRN Reason: Pain Score 6-10/10 Last Admin: 07/05/19 03:29 Dose: 10 mg Documented by: Pantoprazole Sodium (Protonix) 40 mg PO DAILY [facility] Last Admin: 07/05/19 09:10 Dose: 40 mg Documented by: Polysaccharide Iron Complex (Ferrex 150) 150 mg PO DAILY [facility] Last Admin: 07/05/19 09:10 Dose: 150 mg Documented by: Pyridoxine HCl (Vitamin B-6) 100 mg PO DAILY [facility] Last Admin: 07/05/19 09:09 Dose: 100 mg Documented by: Sodium Chloride () 10 - 40 ml IV UD PRN PRN Reason: SALINE FLUSH Last Admin: 07/05/19 17:01 Dose: 10 ml Documented by: STROKE Vital Signs/Narrative: Vital Signs Temp Pulse Resp BP Pulse Ox 07/06/19 05:34 98.9 F 73 19 H 115/70 95 07/06/19 03:48 63 07/06/19 03:41 99.1 F 66 18 94/53 L 94 Medical Necessity - Tobacco Use Smoking Status: Former smoker Tobacco Use: Non-smoker Assessment/Plan All Active Problems (Last Reviewed 07/04/19 @ 14:[address] Pawan Gunter MD) Cellulitis (Acute) Viral illness (Acute) Severe sepsis (Acute) History of tonsillectomy and adenoidectomy (Resolved) Aftercare following left ankle joint replacement surgery (Resolved) History of partial mastectomy of both breasts (Resolved) History of breast biopsy (Resolved) Chest pain (Acute) Breast cancer (Resolved) Patient is a 63-year-old lady presented with progressive shortness of breath fever and chills 1. Acute viral syndrome ?CT of the chest obtained on admission demonstrated Diffuse groundglass appearance involving the right upper lobe as well as right middle lobe and areas of the right lower lobe with evidence of a bronchiectasis and scarring in the right lower lobe. Mild degree of increased ground glass appearance in the left upper lobe. This is highly suspicious for viral pneumonia. Patient placed in isolation while was tested for COVID 19 is being pursued ?07/05/2019; COVID 19 test results still pending. Patient was seen in consultation by Dr. Leggett with infectious disease Case discussed with him. ?07/06/2019: Patient exhibiting some clinical improvement. COVID 19 test still pending. 2. Sepsis ?Secondary to suspected viral syndrome with patient lactic acid being greater than 2.1 cultures were sent started on broad-spectrum antibiotic therapy with vancomycin and Zosyn and resuscitated with IV fluid ?07/05/2019: Cultures still pending 3. History of breast cancer ?With mets to the bone patient is currently on Ibrance which is being held. 4. Anemia ?Secondary to anemia of malignancy subsequent therapy monitoring H&H with plans to transfuse if hemoglobin falls below 7 or becomes symptomatic ?07/05/2019 and order was given for patient to be transfused with 1 unit PRBC with hemoglobin having dropped to 6.7. Posttransfusion H&H ordered ?07/06/2019 hemoglobin up to 7.5. 5. History of Takotsubo cardiomyopathy ?Currently stable 6. DVT prophylaxis ?Lovenox 7. Hyponatremia ?Monitoring daily BMPs ?07/06/2019; sodium levels back within normal limits 8. Hypomagnesemia corrected per protocol 9. Hypocalcemia ?Initiated calcium supplementation Inpatient E&M: 00059 Subs Hosp L2
[2019-07-06 08:06] LABS: Anion Gap 5 (5-15); BUN 12 mg/dL (7-18); BUN/Creat Ratio 17.7 RATIO (10-20); Calcium,Total 7.6 mg/dL (8.5-10.1); Chloride 108 mmol/L (98-107); Creatinine, Serum 0.68 mg/dL (0.55-1.02); EST Glomerular Filtration Rate 93 mL/min (>60); Est Glom Filt Rate - Afr Amer 112 mL/min (>60); Glucose 86 mg/dL (74-106); Potassium 5.2 mmol/L (3.5-5.1); Sodium Level 138 mmol/L (136-145)
[2019-07-06] MEDS: dexAMETHasone 4 MG Tablet 2 MG PO (09:05)
[2019-07-06] MEDS: Gabapentin 300 MG Capsule PO ×2 (09:06→12:16)
[2019-07-06] MEDS: Magnesium Oxide 400 MG Tablet PO (09:06)
[2019-07-06] MEDS: Enoxaparin 40 MG/0.4 ML Syringe SC (09:06)
[2019-07-06] MEDS: Iron Polysaccharide Complex 150 MG CAPSULE PO (09:06)
[2019-07-06] MEDS: DULoxetine Hcl 60 MG Capsule PO (09:06)
[2019-07-06] MEDS: Pantoprazole Sodium 40 MG Tablet PO (09:06)
[2019-07-06] MEDS: Pyridoxine HCl 100 MG Tablet PO (09:07)
[2019-07-06 09:22] LABS: Vancomycin, Trough Level 17.9 ug/mL (5.0-15.0)
[2019-07-06 09:22] LABS: Anisocytosis 1+; Basophil 1 % (0-1); Eosinophil 1 % (0-5); Lymphocyte 6 % (19-41); Metamyelocyte 1 % (0-1); Monocyte 3 % (0-10); Neutrophil-Segmented 88 % (47-70); Platelet Estimate ADEQUATE (ADEQ); Red Cell Morphology N CHROM NORMAL (NORM C&C); Total Cells Counted 100 (MANUAL DIFF)
[2019-07-06 09:23] LABS: Absolute Neutrophil Count 2.6 X10^3/uL (2.0-7.7)
[2019-07-06 09:24] LABS: Absolute Lymphocyte Count 0.17 X10^3/uL (0.83-4.51); Lymphocyte # 0.17 X10^3/ul (4.0)
[2019-07-06] MEDS: oxyCODONE 5 MG Tablet 10 MG PO (10:44)
--- NOTE | 2019-07-06 10:45 | NURSING ---
Patient very short of breath after RN assisted her off of bedpan. Pulse ox 83-86% with oxygen @ 5-6 L/NC. RN spoke with RT and informed her of same. RN requested breathing treatment for patient.
[2019-07-06] MEDS: Albuterol 2.5 MG/3 ML VIAL.NEB. INHALATION (11:10)
[2019-07-06 11:38] LABS: Pathologist Review Reviewed
[2019-07-06] MEDS: Vancomycin IV 1,000 MG/200 ML BAG 200 MG IV (12:00)
--- NOTE | 2019-07-06 12:00 | CASEMGMT ---
Social Work Phone call to SHAHID Mckeon at [facility] and updated on pt. Clinical update faxed. Linda states that they are able to accept pt back to the assisted Living WITHOUT results from the COVID 19 test. Linda does state that pt will need to be medically stable as she will return to her Assisted Living and while there are nurses on duty, they are not able to provide intensive support as someone in a SNF would receive. Pt not ready for d/c on this date but possibly over the weekend. Linda made aware of this and requested she be called directly [phone] with d/c information so she can assure her staff and facility are comfortable at time of discharge. Physician notified. PAYAL Pierce
[2019-07-06] MEDS: Furosemide 80 MG Tablet PO (12:16)
--- NOTE | 2019-07-06 12:47 | NURSING ---
sister Alba called for update, provided and answered questions. assured Alba that we will notify her with covid results when they are available
--- NOTE | 2019-07-06 14:22 | PN.ID_ITS ---
Patient Problems: Active and Suspected Problems (Last Reviewed 07/04/19 @ 14:[address] Pawan Gunter MD) Viral illness (Acute) Severe sepsis (Acute) Subjective: Reports feeling a little better today. Low grade fever overnight. Worsening O2 per nursing. - Physical Exam Vitals/I&O's: Vital Signs Temp Pulse Resp BP Pulse Ox 98.4 F 74 20 H 102/54 L 96 07/06/19 11:50 07/06/19 11:50 07/06/19 11:50 07/06/19 11:50 07/06/19 11:50 Oxygen Flow Rate (L/min) 12 Oxygen Delivery Method Venturi Mask Weight: 84.3 kg Body Mass Index (BMI) 27.4 Intake and Output for Last 24 Hours 07/04/19 07/05/19 07/06/19 23:59 23:59 23:59 Intake Total 2109 3429.99 / 3679.99 3055.83 / 3055.83 Balance 2109 3429.99 / 3679.99 3055.83 / 3055.83 General: Alert, Cooperative, No apparent distress Lungs: Diminished Cardiovascular: Tachycardic Abdomen: Soft, Non Tender, Non-Distended Skin: No rashes Microbiology Past 72 Hours 07/04/19 10:25 Blood Culture (Wb) - Anticubital Right Blood Culture - Preliminary No growth in 48 hours. 07/04/19 10:30 Blood Culture (Wb) - Right Forearm Blood Culture - Preliminary No growth in 48 hours. 07/04/19 10:30 Urine Catheter - Catheter Urine Culture - Final Culture exhibits no growth. 07/04/19 10:30 Urine, Clean Catch Legionella Antigen - Final 07/04/19 10:30 Urine, Clean Catch Streptococcus pneumoniae Antigen (M - Final 07/04/19 12:50 Mucosa - Nose Respiratory Panel (PCR) - Final 07/04/19 12:25 Stool Stool Occult Blood (LAUREN) - Final Occult Blood Positive 07/04/19 10:32 Mucosa - Nose Influenza Types A,B Direct FA (LAUREN) - Final Laboratory Results 07/04/19 12:30: Crossmatch See Detail 07/05/19 16:35: Vancomycin Trough 24.7 H 07/05/19 16:35: Hgb 7.5 L, Hct 23.0 L 07/06/19 07:05: WBC 2.9 L, RBC 2.13 L, Hgb 7.5 L, Hct 23.2 L, MCV 108.9 H, MCH 35.2 H, MCHC 32.3, RDW Std Deviation 74.5 H, RDW Coeff of Jessica 19.1 H, Plt Count 162, MPV 9.8, Neut % (Auto) Not Reportable, Absolute Neuts (auto) 2.6, Absolute Lymphs (auto) 0.17 L, Total Counted 100, Neutrophils % (Manual) 88 H, Lymphocytes % (Manual) 6 L, Monocytes % (Manual) 3, Eosinophils % (Manual) 1, Basophils % (Manual) 1, Metamyelocytes % 1, Diff Path Review Reviewed, Platelet Estimate ADEQUATE, RBC Morphology N CHROM, Anisocytosis 1+ 07/06/19 07:05: Sodium 138, Potassium 5.2 H, Chloride 108 H, Carbon Dioxide 25.0, Anion Gap 5, BUN 12, Creatinine 0.68, Estim Creat Clear Calc 88.50, Est GFR (MDRD) Af Amer 112, Est GFR (MDRD) Non-Af 93, BUN/Creatinine Ratio 17.7, Glucose 86, Calcium 7.6 L 07/06/19 08:34: Vancomycin Trough 17.9 H Current Medications Acetaminophen (Tylenol) 650 mg PO Q6H PRN PRN PRN Reason: Pain Score 1-10/Temp > 100.7 F Last Admin: 07/06/19 06:13 Dose: 650 mg Documented by: Al Hydroxide/Mg Hydroxide (Mylanta Ii) 30 ml PO Q6H PRN PRN PRN Reason: Gastric Burning Albuterol Sulfate (Ventolin Aerosols) 2.5 mg INHALATION Q2H PRN PRN PRN Reason: Shortness of Breath/Wheezing Last Admin: 07/06/19 11:10 Dose: 2.5 mg Documented by: [facility] Last Admin: 07/06/19 09:05 Dose: 2 mg Documented by: Duloxetine HCl (Cymbalta) 60 mg PO DAILY COUNTS INCLUDE 234 BEDS AT [facility] Last Admin: 07/06/19 09:06 Dose: 60 mg Documented by: Enoxaparin Sodium (Lovenox) 40 mg SC DAILY COUNTS INCLUDE 234 BEDS AT THE [facility] Last Admin: 07/06/19 09:06 Dose: 40 mg Documented by: Ergocalciferol (Vitamin D) 50,000 unit PO MoTh@1000 COUNTS INCLUDE 234 BEDS AT THE [facility] Last Admin: 07/05/19 09:10 Dose: 50,000 unit Documented by: Gabapentin (Neurontin) 300 mg PO TIDCM COUNTS INCLUDE 234 BEDS AT THE [facility] Last Admin: 07/06/19 12:16 Dose: 300 mg Documented by: Guaifenesin (Robitussin) 20 ml PO Q4H PRN PRN PRN Reason: COUGH Hydroxychloroquine Sulfate (Plaquenil) [facility] Stop: 07/07/19 14:19 Hydroxychloroquine Sulfate (Plaquenil) 400 [facility] Ceftriaxone Sodium 2 gm/ (Sodium Chloride) 50 mls @ 100 mls/hr IV Q24 COUNTS INCLUDE 234 BEDS AT THE [facility] Magnesium Hydroxide (Milk Of Magnesia) 30 ml PO DAILY PRN PRN PRN Reason: Constipation Magnesium Oxide (Mag-Ox 400) [facility] Last Admin: 07/06/19 09:06 Dose: 400 mg Documented by: Melatonin (Melatonin) 10 mg PO QHS COUNTS INCLUDE 234 BEDS AT [facility] Last Admin: 07/05/19 21:32 Dose: 10 mg Documented by: Methadone HCl () 30 mg PO TID COUNTS INCLUDE 234 BEDS AT THE [facility] Last Admin: 07/06/19 05:36 Dose: 30 mg Documented by: Nutritional Formula (Lactose Free) (Ensure Enlive) 120 ml PO 4X/DAY COUNTS INCLUDE 234 BEDS AT THE [facility] Last Admin: 07/06/19 09:06 Dose: 120 ml Documented by: Ondansetron HCl (Zofran) 4 mg IV Q8H PRN PRN PRN Reason: NAUSEA/VOMITING Oxycodone HCl (Oxyir) 5 mg PO Q4H PRN PRN PRN Reason: Pain Score 4-5/10 Oxycodone HCl (Oxyir) 10 mg PO Q4H PRN PRN PRN Reason: Pain Score 6-10/10 Last Admin: 07/06/19 10:44 Dose: 10 mg Documented by: Pantoprazole Sodium (Protonix) 40 mg PO DAILY COUNTS INCLUDE 234 BEDS AT THE [facility] Last Admin: 07/06/19 09:06 Dose: 40 mg Documented by: Polysaccharide Iron Complex (Ferrex 150) 150 mg PO DAILY COUNTS INCLUDE 234 BEDS AT THE [facility] Last Admin: 07/06/19 09:06 Dose: 150 mg Documented by: Pyridoxine HCl (Vitamin B-6) 100 mg PO DAILY COUNTS INCLUDE 234 BEDS AT THE [facility] Last Admin: 07/06/19 09:07 Dose: 100 mg Documented by: Sodium Chloride () 10 - 40 ml IV UD PRN PRN Reason: SALINE FLUSH Last Admin: 07/05/19 17:01 Dose: 10 ml Documented by: Medical Necessity - Tobacco Use Smoking Status: Former smoker Tobacco Use: Non-smoker Route of nutrition/ use of supplements: [] Nutritional Intake: [] IV Site: [] Poon Catheter: [] - Assessment/Plan Antibiotics: [] Assessment/Plan: [] Active and Suspected Problems (Last Reviewed 07/04/19 @ 14:[address] Pawan Gunter MD) Viral illness (Acute) Severe sepsis (Acute) severe sepsis, fever, cough, SOB, lymphopenia, CT chest with bilat ground glass changes, lactic acidosis. Resp pcr panel neg. COVID sent through . Bacterial cxs remain neg. Will narrow abx to ceftriaxone. High suspicion for COVID, now with much worse hypoxia. Will start Plaquenil 400mg bid x1 day then 200mg bid x4 days. May need early intubation. Recommend critical care involvement. Will follow, d/w Dr. Gunter and Dr. Sue
--- NOTE | 2019-07-06 14:52 | NURSING ---
1452 Dr. Sue present in pt room, along w/RTx2 ICU RNsx2 prep for elective intubation 1501 Versed 2mg push [address] Sue 1502 Etomidate 20mg push per Dr. Sue 1504 #7 OET 22cm lip bilat breath sds
--- NOTE | 2019-07-06 14:55 | NURSING ---
called [facility] with update on patient and ICU transfer. will ask ICU staff to call [facility] with update when they are able.
[2019-07-06] MEDS: Midazolam 2 MG/2 ML Syringe IV (15:01)
[2019-07-06] MEDS: Etomidate 20 MG/10 ML Vial IV (15:02)
[2019-07-06] MEDS: Propofol 10MG/Ml 1,000 MG/100 ML Bottle 5.1 MG CONT INF (15:05)
[2019-07-06] MEDS: fentaNYL drip 100 ML 2.5 MCG IV (15:05)
--- NOTE | 2019-07-06 15:20 | PCM.CON.CC ---
Reason for Consult Date of Consultation: 07/06/19 Reason for Consultation: Acute Hypoxemic Respiratory Failure History of Present Illness: The patient is a 63-year-old female, with a history as outlined below, who initially presented to the emergency department on July 03 with complaints of shortness of breath. The patient does have a history of metastatic breast cancer involving the right femur on tamoxifen. On presentation the patient was noted to be afebrile and hemodynamically stable. She did have a 2 L/min supplemental oxygen requirement initially. Laboratory evaluation revealed evidence of lymphopenia along with macrocytic anemia with a hemoglobin of 7.1 g/dL. The patient was last noted to have a hemoglobin of 9.0 g/dL in January 2019. Coagulation profile was within normal limits. Initial lactate level was elevated to 2.1. Troponin was negative. BNP was elevated to 203. A CTA chest obtained in the emergency department did not reveal evidence of PE. However, there was evidence of diffuse groundglass changes involving the right hemithorax along with the left upper lobe. The patient was subsequently admitted to [place] [id number] with concerns for sepsis secondary to acute viral syndrome. The patient was placed in coronavirus precautions and infectious diseases consultation was obtained. The patient has been transfused 1 unit of packed red blood cells due to her presenting anemia. Unfortunately, throughout the day on July 05, the patient was noted to have increasing oxygen requirements. At the time of my initial evaluation of the patient she was on a 50% Ventimask. The patient's antibiotics have been managed by infectious diseases. Given her worsening respiratory status, and following discussion with infectious diseases, the patient was transferred to the medical intensive care unit during the late afternoon of July 05, where she underwent elective intubation due to worsening respiratory status. The patient was also placed empirically on hydroxychloroquine. A short time later, the patient's COVID-19 testing was reported as negative by [facility]. However, given the patient's worsening clinical state and groundglass changes noted on CT chest, the decision was made by ID to continue the hydroxychloroquine, over concerns that the patient's testing may represent a false negative. Intubation Indication: Impending Respiratory Failure, COVID rule out Consent was obtained from: Patient The patient was placed in the appropriate sniffing position. Preoxygenated via Ventimask was provided. The patient had continuous cardiac as well as pulse oximetry monitoring during the procedure. Procedure sedation was provided by the administration of 2 mg of versed and 20 mg of Etomidate. Video laryngoscopy was then performed using a number 4 blade, which revealed a grade 1 view. A 7.0 mm endotracheal tube was visualized advancing between the cords to the level of 22 cm at the lip. The stylette was then removed and discarded. Tube placement was confirmed by fogging in the tube along with equal and bilateral breath sounds. Colorimetric change was visualized on the CO2 meter. The cuff was then inflated and the tube secured using a commercially available device. A good pulse oximetry waveform was seen on the monitor throughout the procedure. A portable chest x-ray has been ordered to confirm appropriate placement. The patient tolerated the procedure well. Past Medical History Past Medical History (Chronic Problems): Chronic Problems (Last Reviewed 07/04/19 @ 14:[address] 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 per cath 10/22 Hx of breast cancer (Chronic) Medical History: Medical History (Last Reviewed 07/04/19 @ 14:[address] Pawan Gunter MD) Compression fracture of body of thoracic vertebra (Chronic) M48.54XA Carcinoma of breast metastatic to bone (Chronic) C50.919, C79.51 Anemia (Chronic) D64.9 Osteoarthritis of knee, unspecified (Chronic) M17.9 Dyslipidemia (Chronic) E78.5 NSTEMI (non-ST elevated myocardial infarction) (Chronic) I21.4 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 per cath 10/22 Hx of breast cancer (Chronic) Z85.3 Chest pain (Acute) R07.9 Allergies povidone-iodine [From Betadine] Adverse Reaction (Severe, Verified 07/04/19 10:51) Other BROKE OUT INTO BLISTERS soap [From Betadine] Adverse Reaction (Severe, Verified 07/04/19 10:51) Other BROKE OUT INTO BLISTERS Home Medications: Ambulatory Orders Medication Instructions Recorded Duloxetine Hcl [Cymbalta] 60 mg PO DAILY 02/17/18 Hydromorphone HCl [Dilaudid] 4 mg PO TID PRN PRN 01/13/19 Methadone HCl 30 mg PO TID 01/13/19 Omeprazole 40 mg PO DAILY 01/13/19 Pyridoxine HCl (Vitamin B6) 100 mg PO DAILY 01/13/19 [Vitamin B-6] Dexamethasone 2 mg PO DAILY 07/04/19 Ergocalciferol (Vitamin D2) 50,000 unit PO UD 07/04/19 [Vitamin D2] Iron Polysaccharide Complex 150 mg PO DAILY 07/04/19 [Ferrex 150] Melatonin 10 mg PO QHS 07/04/19 Palbociclib [Ibrance] 100 mg PO UD 07/04/19 Senna [Senokot] 2 tab PO DAILY 07/04/19 Surgical History: Surgical History (Last Reviewed 07/04/19 @ 14:[address] Pawan Gunter MD) History of tonsillectomy and adenoidectomy (Resolved) Z98.890 Aftercare following left ankle joint replacement surgery (Resolved) Z47.1, Z96.662 History of partial mastectomy of both breasts (Resolved) Z90.13 History of breast biopsy (Resolved) Z98.890 Surgical History: - - Left Achilles tendon surgery, lumpectomy of both breasts Psychiatric History: No pertinent psych hx DIE REAMER History: No pertinent DIE REAMER history Smoking Status: Former smoker Tobacco Use: Non-smoker - *Family History Maternal Family History: Family History (Last Reviewed 07/04/19 @ 14:[address] Pawan Gunter MD) Mother Hypertension COPD (chronic obstructive pulmonary disease) Father Cancer Grandmother Breast cancer Grandfather CVA (cerebral vascular accident) History Items: No pertinent history Paternal Family History: Family History (Last Reviewed 07/04/19 @ 14:[address] Pawan Gunter MD) Mother Hypertension COPD (chronic obstructive pulmonary disease) Father Cancer Grandmother Breast cancer Grandfather CVA (cerebral vascular accident) History Items: No pertinent history Sibling Family History: Family History (Last Reviewed 07/04/19 @ 14:[address] Pawan Gunter MD) Mother Hypertension COPD (chronic obstructive pulmonary disease) Father Cancer Grandmother Breast cancer Grandfather CVA (cerebral vascular accident) History Items: No pertinent history Review of Systems Unable to obtain accurate/complete ROS d/t: Due to current intubation and mechanical ventilation status Patient Problems: Active and Suspected Problems (Last Reviewed 07/04/19 @ 14:[address] Pawan Gunter MD) Viral illness (Acute) Severe sepsis (Acute) - Physical Exam Vitals/I&O's: Vital Signs Temp Pulse Resp BP Pulse Ox 98.4 F 74 20 H 102/54 L 96 07/06/19 11:50 07/06/19 11:50 07/06/19 11:50 07/06/19 11:50 07/06/19 11:50 Oxygen Flow Rate (L/min) 12 Oxygen Delivery Method Venturi Mask Weight: 185 lb 13.595 oz Body Mass Index (BMI) 27.4 Intake and Output for Last 24 Hours 07/04/19 07/05/19 07/06/19 23:59 23:59 23:59 Intake Total 2109 3429.99 / 3679.99 3055.83 / 3055.83 Balance 2109 3429.99 / 3679.99 3055.83 / 3055.83 General: - - The patient is now intubated, sedated and mechanically ventilated. HEENT: Atraumatic, Normocephalic Oral: No Gingival or Mucosal Lesions/ Ulcerations, - - Endotracheal and OG tubes are now in place Neck: Supple, No Nodes, Trachea Midline Lungs: No rhonchi, No wheeze, No rales, Diminished Cardiovascular: Regular rate, Regular Rhythm, Normal S1, Normal S2 Abdomen: Bowel Sounds Present, Soft, Non Tender Extremities: No clubbing, No cyanosis, No edema Skin: No breakdown Musculoskeletal: No Tenderness to Palpation of Joints or Extremities Lymphatic: No Cervical, Supraclavicular, or Inguinal Adenopathy Neurological: - - No focal deficits. Currently intubated and sedated. Labs (Last 48 Hours) 07/04/19 07/04/19 07/04/19 10:30 12:30 12:30 WBC RBC Hgb Hct MCV MCH MCHC RDW Std Deviation RDW Coeff of Jessica Plt Count MPV Immature Gran % (Auto) Neut % (Auto) Lymph % (Auto) [place] % (Auto) Eos % (Auto) Baso % (Auto) Absolute Neuts (auto) Absolute Lymphs (auto) Total Counted Neutrophils % (Manual) Lymphocytes % (Manual) Monocytes % (Manual) Eosinophils % (Manual) Basophils % (Manual) Metamyelocytes % Nucleated RBC % Differential Comment Diff Path Review Reviewed Reactive Lymphocytes Platelet Estimate RBC Morphology Anisocytosis Sodium Potassium Chloride Carbon Dioxide Anion Gap BUN Creatinine Estim Creat Clear Calc Est GFR (MDRD) Af Amer Est GFR (MDRD) Non-Af BUN/Creatinine Ratio Glucose Lactic Acid Calcium Magnesium Vancomycin Trough COVID-19 (RYAN) Miscellaneous Test Blood Type O POSITIVE Antibody Screen NEGATIVE Crossmatch See Detail See Detail 07/04/19 07/04/19 07/04/19 15:08 17:00 17:00 WBC RBC Hgb Hct MCV MCH MCHC RDW Std Deviation RDW Coeff of Jessica Plt Count MPV Immature Gran % (Auto) Neut % (Auto) Lymph % (Auto) [place] % (Auto) Eos % (Auto) Baso % (Auto) Absolute Neuts (auto) Absolute Lymphs (auto) Total Counted Neutrophils % (Manual) Lymphocytes % (Manual) Monocytes % (Manual) Eosinophils % (Manual) Basophils % (Manual) Metamyelocytes % Nucleated RBC % Differential Comment Diff Path Review Reactive Lymphocytes Platelet Estimate RBC Morphology Anisocytosis Sodium Potassium Chloride Carbon Dioxide Anion Gap BUN Creatinine Estim Creat Clear Calc Est GFR (MDRD) Af Amer Est GFR (MDRD) Non-Af BUN/Creatinine Ratio Glucose Lactic Acid 1.4 Calcium Magnesium Vancomycin Trough COVID-19 (RYAN) Pending Miscellaneous Test Cancelled Blood Type Antibody Screen Crossmatch 07/05/19 07/05/19 07/05/19 06:18 06:18 16:35 WBC 4.3 L RBC 1.79 L Hgb 6.7 L Hct 20.0 L MCV 111.7 H MCH 37.4 H MCHC 33.5 RDW Std Deviation 64.2 H RDW Coeff of Jessica 16.3 H Plt Count 204 MPV 9.6 Immature Gran % (Auto) 2.600 H Neut % (Auto) 86.0 H Lymph % (Auto) 6.8 L [place] % (Auto) 2.8 Eos % (Auto) 1.6 Baso % (Auto) 0.2 Absolute Neuts (auto) 3.7 Absolute Lymphs (auto) 0.29 L Total Counted Neutrophils % (Manual) Lymphocytes % (Manual) Monocytes % (Manual) Eosinophils % (Manual) Basophils % (Manual) Metamyelocytes % Nucleated RBC % 2.8 Differential Comment SCANNED Diff Path Review Reviewed Reactive Lymphocytes RARE Platelet Estimate ADEQUATE RBC Morphology Anisocytosis Sodium 134 L Potassium 4.1 Chloride 102 Carbon Dioxide 24.0 Anion Gap 8 BUN 13 Creatinine 0.65 Estim Creat Clear Calc 92.58 Est GFR (MDRD) Af Amer 118 Est GFR (MDRD) Non-Af 98 BUN/Creatinine Ratio 20.0 Glucose 78 Lactic Acid Calcium 7.6 L Magnesium 1.5 L Vancomycin Trough 24.7 H COVID-19 (RYAN) Miscellaneous Test Blood Type Antibody Screen Crossmatch 07/05/19 07/06/19 07/06/19 16:35 07:05 07:05 WBC 2.9 L RBC 2.13 L Hgb 7.5 L 7.5 L Hct 23.0 L 23.2 L MCV 108.9 H MCH 35.2 H MCHC 32.3 RDW Std Deviation 74.5 H RDW Coeff of Jessica 19.1 H Plt Count 162 MPV 9.8 Immature Gran % (Auto) Neut % (Auto) Not Reportable Lymph % (Auto) [place] % (Auto) Eos % (Auto) Baso % (Auto) Absolute Neuts (auto) 2.6 Absolute Lymphs (auto) 0.17 L Total Counted 100 Neutrophils % (Manual) 88 H Lymphocytes % (Manual) 6 L Monocytes % (Manual) 3 Eosinophils % (Manual) 1 Basophils % (Manual) 1 Metamyelocytes % 1 Nucleated RBC % Differential Comment Diff Path Review Reviewed Reactive Lymphocytes Platelet Estimate ADEQUATE RBC Morphology N CHROM Anisocytosis 1+ Sodium 138 Potassium 5.2 H Chloride 108 H Carbon Dioxide 25.0 Anion Gap 5 BUN 12 Creatinine 0.68 Estim Creat Clear Calc 88.50 Est GFR (MDRD) Af Amer 112 Est GFR (MDRD) Non-Af 93 BUN/Creatinine Ratio 17.7 Glucose 86 Lactic Acid Calcium 7.6 L Magnesium Vancomycin Trough COVID-19 (RYAN) Miscellaneous Test Blood Type Antibody Screen Crossmatch 07/06/19 08:34 WBC RBC Hgb Hct MCV MCH MCHC RDW Std Deviation RDW Coeff of Jessica Plt Count MPV Immature Gran % (Auto) Neut % (Auto) Lymph % (Auto) [place] % (Auto) Eos % (Auto) Baso % (Auto) Absolute Neuts (auto) Absolute Lymphs (auto) Total Counted Neutrophils % (Manual) Lymphocytes % (Manual) Monocytes % (Manual) Eosinophils % (Manual) Basophils % (Manual) Metamyelocytes % Nucleated RBC % Differential Comment Diff Path Review Reactive Lymphocytes Platelet Estimate RBC Morphology Anisocytosis Sodium Potassium Chloride Carbon Dioxide Anion Gap BUN Creatinine Estim Creat Clear Calc Est GFR (MDRD) Af Amer Est GFR (MDRD) Non-Af BUN/Creatinine Ratio Glucose Lactic Acid Calcium Magnesium Vancomycin Trough 17.9 H COVID-19 (RYAN) Miscellaneous Test Blood Type Antibody Screen Crossmatch Microbiology 07/04/19 10:25 Blood Culture (Wb) - Anticubital Right Blood Culture - Preliminary No growth in 48 hours. 07/04/19 10:30 Blood Culture (Wb) - Right Forearm Blood Culture - Preliminary No growth in 48 hours. 07/04/19 10:30 Urine Catheter - Catheter Urine Culture - Final Culture exhibits no growth. 07/04/19 10:30 Urine, Clean Catch Legionella Antigen - Final 07/04/19 10:30 Urine, Clean Catch Streptococcus pneumoniae Antigen (M - Final 07/04/19 12:50 Mucosa - Nose Respiratory Panel (PCR) - Final 07/04/19 12:25 Stool Stool Occult Blood (LAUREN) - Final Occult Blood Positive 07/04/19 10:32 Mucosa - Nose Influenza Types A,B Direct FA (LAUREN) - Final Clinical Impression(s) from Imaging Studies Chest CTA 07/04/19 10:14 IMPRESSION: Diffuse groundglass appearance involving the right upper lobe as well as right middle lobe and areas of the right lower lobe with evidence of a bronchiectasis and scarring in the right lower lobe. Mild degree of increased ground glass appearance in the left upper lobe. 1. Metastasis. Electronically Signed: Steve Zelaya, at 12:14 EDT , Service support , Current Medications Acetaminophen (Tylenol) 650 mg PO Q6H PRN PRN PRN Reason: Pain Score 1-10/Temp > 100.7 F Last Admin: 07/06/19 06:13 Dose: 650 mg Documented by: Al Hydroxide/Mg Hydroxide (Mylanta Ii) 30 ml PO Q6H PRN PRN PRN Reason: Gastric Burning Albuterol Sulfate (Ventolin Aerosols) 2.5 mg INHALATION Q2H PRN PRN PRN Reason: Shortness of Breath/Wheezing Last Admin: 07/06/19 11:10 Dose: 2.5 mg Documented by: Hydroxychloroquine Sulfate 200 mg/ Compound Med 4 ml/Compound Med 4 ml mg GT BID [facility] Stop: 07/06/19 22:01 Hydroxychloroquine Sulfate 200 mg/ Compound Med 4 ml/Compound Med 4 ml mg GT BID [facility] Stop: 07/10/19 22:01 [facility] Last Admin: 07/06/19 09:05 Dose: 2 mg Documented by: Duloxetine HCl (Cymbalta) 60 mg PO DAILY [facility] Last Admin: 07/06/19 09:06 Dose: 60 mg Documented by: Enoxaparin Sodium (Lovenox) 40 mg SC DAILY [facility] Last Admin: 07/06/19 09:06 Dose: 40 mg Documented by: Ergocalciferol (Vitamin D) 50,000 unit PO MoTh@1000 [facility] Last Admin: 07/05/19 09:10 Dose: 50,000 unit Documented by: Gabapentin (Neurontin) 300 mg PO TIDCM [facility] Last Admin: 07/06/19 12:16 Dose: 300 mg Documented by: Guaifenesin (Robitussin) 20 ml PO Q4H PRN PRN PRN Reason: COUGH Hydroxychloroquine Sulfate (Plaquenil) 400 mg PO BID [facility] Stop: 07/06/19 22:01 Hydroxychloroquine Sulfate ([facility]aquenil) [facility] Stop: 07/10/19 17:01 Ceftriaxone Sodium 2 gm/ (Sodium Chloride) 50 mls @ 100 mls/hr IV Q24 [facility] Last Admin: 07/06/19 14:27 Dose: 100 mls/hr Documented by: Magnesium Hydroxide (Milk Of Magnesia) 30 ml PO DAILY PRN PRN PRN Reason: Constipation Magnesium Oxide (Mag-Ox 400) [facility] Last Admin: 07/06/19 09:06 Dose: 400 mg Documented by: Melatonin (Melatonin) 10 mg PO QHS [facility] Last Admin: 07/05/19 21:32 Dose: 10 mg Documented by: Methadone HCl () 30 mg PO TID [facility] Last Admin: 07/06/19 14:26 Dose: 30 mg Documented by: Nutritional Formula (Lactose Free) (Ensure Enlive) 120 ml PO 4X/DAY [facility] Last Admin: 07/06/19 14:25 Dose: 120 ml Documented by: Ondansetron HCl (Zofran) 4 mg IV Q8H PRN PRN PRN Reason: NAUSEA/VOMITING Oxycodone HCl (Oxyir) 5 mg PO Q4H PRN PRN PRN Reason: Pain Score 4-5/10 Oxycodone HCl (Oxyir) 10 mg PO Q4H PRN PRN PRN Reason: Pain Score 6-10/10 Last Admin: 07/06/19 10:44 Dose: 10 mg Documented by: Pantoprazole Sodium (Protonix) 40 mg PO DAILY [facility] Last Admin: 07/06/19 09:06 Dose: 40 mg Documented by: Polysaccharide Iron Complex (Ferrex 150) 150 mg PO DAILY [facility] Last Admin: 07/06/19 09:06 Dose: 150 mg Documented by: Pyridoxine HCl (Vitamin B-6) 100 mg PO DAILY [facility] Last Admin: 07/06/19 09:07 Dose: 100 mg Documented by: Sodium Chloride () 10 - 40 ml IV UD PRN PRN Reason: SALINE FLUSH Last Admin: 07/05/19 17:01 Dose: 10 ml Documented by: Assessment/Plan Active and Suspected Problems (Last Reviewed 07/04/19 @ 14:[address] Pawan Gunter MD) Viral illness (Acute) Severe sepsis (Acute) RECOMMENDATIONS: 1. Continue empiric antimicrobials per ID recommendations. 2. Continue hydroxychloroquine per ID recommendations. Obtain EKG in the morning. 3. Discontinue methadone and Zofran to prevent QT prolongation. 4. Continue propofol and fentanyl for sedation. 5. Wean FiO2 to maintain oxygen saturations at or above 90%. 6. Start tube feeds beginning tomorrow. IMPRESSIONS: 1. Acute hypoxemic respiratory failure Initial clinical concern was for a possible viral pneumonia, given extensive groundglass changes noted on CT chest. In addition, the patient's anemia was likely complicating the clinical picture. She did decompensate from a respiratory perspective on July 05, which led to early preventative intubation in the ICU setting. Although the patient's coronavirus testing was later resulted as negative by the [facility] on July 05, given the patient's clinical state, infectious diseases elected to continue the patient's hydroxychloroquine over concerns that the patient's testing may represent a false negative. Endotracheal tube appears to be in appropriate position following intubation. The patient will remain on assist control mode of mechanical ventilation. Will obtain arterial blood gas in 1 hour. Tube feeds can be started tomorrow. Wean FiO2 to maintain oxygen saturations at or above 90%. 2. Macrocytic anemia Appears to have worsened during this hospitalization. The patient has already received 1 unit of packed red blood cells to date. Her hemoglobin is still on the low side. Will need to monitor on a daily basis with plans to transfuse if hemoglobin drops below 7 g/dL. Recommend stopping Pepcid and transitioning to Protonix twice daily. 3. History of Takotsubo cardiomyopathy/personal history of breast cancer with mets/chronic pain syndrome/GERD Complicates care, management, recovery and prognosis. Continue home medications as indicated. TIME: 45 minutes of critical care time, inclusive of procedures, was spent addressing the patient's acute hypoxemic respiratory failure, concern for viral pneumonia, anemia, review of all data and collaboration with the care team. [phone]) [phone]: [phone] Critical care first hour
--- NOTE | 2019-07-06 15:27 | NURSING ---
unix developer aware that text sent to Dr. Gunter to clarify MRSA swab order.
--- NOTE | 2019-07-06 15:30 | RAD_ITS ---
STUDY: X-RAY CHEST REASON FOR EXAM: Female, 63 years old. ETT PLACEMENT, NG TUBE PLACEMENT TECHNIQUE: Single AP portable view of the chest. COMPARISON: Comparison is made with prior examination February 07, 2019. FINDINGS: An endotracheal tube in situ. 4 cm proximal to margarito. EKG electrodes are seen. Nasogastric tube is seen within the body of the stomach. Dense airspace disease in the right hemithorax. Patchy alveolar disease in the left hemithorax. Findings are in keeping with pulmonary edema. There is no demonstrated pleural abnormality. There is mild cardiac enlargement. Normal mediastinum and esperanza. Normal visualized pulmonary arteries. Normal visualized aortic arch and descending thoracic aorta. Normal visualized thoracic spine. Normal visualized ribs, clavicles, and shoulders. There is no demonstrated abnormality of the visualized soft tissue structures of the upper abdomen. RAD/Chest 1 View (Portable) IMPRESSION: Findings suggestive of pulmonary edema. The tip of the endotracheal tube is 3.4 cm proximal to the margarito. Nasogastric tube is seen within the body of the stomach. Electronically Signed: Steve Zelaya, at 15:53 EDT , Service support ,
[2019-07-06] MEDS: TITRATION PARAMETER CHANGE 1 EACH IV (16:00)
[2019-07-06 17:22] LABS: Blood Gas Specimen Type ART; Mode AC; SITE L BRACHIAL
[2019-07-06 17:23] LABS: FI02 50; O2 Delivery Device Vent; PEEP 5; RR 14; Time Given 1709; Vt 450; pH 7.37 (7.35-7.45)
[2019-07-06 17:24] LABS: Base Excess -1 mmol/L (-2 to +2); Bicarbonate 24.2 mmol/L (22-26); PO2 78 mmHG (75-100); SO2 95 % (95-99); Total Carbon Dioxide 25 mmol/L; pCO2 41.5 mmHg (35-45)
[2019-07-06] MEDS: 0.9% Saline Lock 10 ML Syringe IV (17:54)
[2019-07-06 18:13] LABS: M R Staph aureus DNA By PCR Negative (Negative); Probe Check PASS; Specimen Processing Control PASS
[2019-07-06 19:24] LABS: CPK Total, Creatine Kinase 60 U/L (26-192); Triglycerides 113 mg/dL
[2019-07-06] MEDS: Chlorhexidine 15 ML PO (23:00)
[2019-07-06] MEDS: Gabapentin 300 MG Capsule GT (23:01)
[2019-07-06] MEDS: Famotidine 20 MG Tablet GT (23:01)
[2019-07-06] MEDS: Magnesium Oxide 400 MG Tablet GT (23:01)
[2019-07-07] VITALS (39 sets, daily range): BP systolic 82–122; BP diastolic 52–85; PULSE 55–77; RESP 14–21; TEMP 36.4–36.9; O2SAT 91–97; BMI 27.7
[2019-07-07] MEDS: Propofol 10MG/Ml 1,000 MG/100 ML Bottle 6.3 MG CONT INF (03:16)
[2019-07-07 03:57] LABS: Absolute Neutrophil Count 2.4 X10^3/uL (2.0-7.7); Basophil# 0.01 X10^3/uL; Basophil% 0.4 % (0-1); Hematocrit 21.1 % (37-47); Hemoglobin 6.9 g/dL (12.0-15.0); Lymphocyte % 3.8 % (19-41); Mean Corp Hgb Conc 32.7 g/dL (32-36); Mean Corpuscular Hgb 35.6 pg (27.0-32.0); Mean Corpuscular Volume 108.8 fL (81-99); Mean Platelet Vol. 9.8 fl (6.2-12.0); Monocyte% 3.8 % (0-10); NRBC Flagged by Analyzer 0.8 % (0-5); Neutrophil # 2.42 X10^3/uL (2.7-7.7); Neutrophil % 91.2 % (47-70); POSITIVE DIFFERENTIAL YES; POSITIVE MORPHOLOGY YES; Platelet Count 174 K/mm3 (150-450); RBC Distribution Width CV 18.4 % (11.6-14.6); RBC Distribution Width SD 71.3 fl (35.1-43.9); Red Blood Count 1.94 M/mm3 (4.2-5.4); White Blood Count 2.7 K/mm3 (4.4-11.0)
[2019-07-07 03:58] LABS: Differential Indicated SCAN CRITERIA MET
[2019-07-07 04:09] LABS: Anion Gap 6 (5-15); BUN 14 mg/dL (7-18); BUN/Creat Ratio 22.7 RATIO (10-20); Calcium,Total 7.5 mg/dL (8.5-10.1); Chloride 104 mmol/L (98-107); Creatinine, Serum 0.62 mg/dL (0.55-1.02); EST Glomerular Filtration Rate 103 mL/min (>60); Est Glom Filt Rate - Afr Amer 125 mL/min (>60); Estimated Creatinine Clearance 97.06 ml/min; Glucose 117 mg/dL (74-106); Potassium 4.4 mmol/L (3.5-5.1); Sodium Level 138 mmol/L (136-145)
[2019-07-07 04:33] LABS: Differential Comment SCANNED
[2019-07-07] MEDS: Gabapentin 300 MG Capsule GT ×3 (04:59→21:10)
--- NOTE | 2019-07-07 05:55 | EKG12_ITS ---
Test Reason : QT INTERVAL Blood Pressure : / mmHG Vent. Rate : 056 BPM Atrial Rate : 056 BPM P-R Int : 156 ms QRS Dur : 082 ms QT Int : 532 ms P-R-T Axes : 029 -02 078 degrees QTc Int : 513 ms Sinus bradycardia Prolonged QT Abnormal ECG Confirmed by PADMINI SEALS, DOMINGA ([id number]), health editor RADHA ELIAS ([id number]) on 07/10/2019 9:27:23 AM Referred By: TWAN Confirmed By:DOMINGA WASHINGTON MD
--- NOTE | 2019-07-07 06:54 | PN_ITS ---
Subjective: The patient was seen and examined at the bedside this morning. Events from the last 24 hours have been reviewed. The patient is currently afebrile, hemodynamically stable and maintaining appropriate oxygen saturations on assist control mode mechanical ventilation with an FiO2 requirement of 40%. The patient is currently documented to be overall net +6.6 L for the hospital admission. Hemoglobin is low this morning is 6.9 g/dL. COVID-19 testing was reportedly negative. However, the patient remains in precautions per ID recommendations over concerns for potential false negative test results. Objective: The patient's most recent lab work, culture data and imaging studies have all been personally reviewed. Stool for occult blood was positive on July 03. Infectious work-up has been negative to date. Sputum culture is pending. COVID- 19 testing was reportedly negative. General: - - Intubated, sedated and mechanically ventilated. HEENT: Atraumatic, PERRLA, Normocephalic Oral: No Gingival or Mucosal Lesions/ Ulcerations, - - Endotracheal and OG tubes remain in place Neck: Supple, No Nodes, Trachea Midline Lungs: No rhonchi, No wheeze, No rales, Diminished Cardiovascular: Normal S1, Normal S2, No murmurs, Bradycardic Abdomen: Bowel Sounds Present, Soft, Non Tender Extremities: No clubbing, No cyanosis Skin: No breakdown Musculoskeletal: No Tenderness to Palpation of Joints or Extremities, No Muscle Wasting Lymphatic: No Cervical, Supraclavicular, or Inguinal Adenopathy Neurological: - - No focal neurological deficits. Currently sedated on the ventilator. Vital Signs Temp Pulse Resp BP Pulse Ox 98.0 F 62 20 H 90/57 L 93 07/07/19 03:00 07/07/19 06:47 07/07/19 06:47 07/07/19 06:00 07/07/19 06:47 Oxygen Flow Rate (L/min) 12 Oxygen Delivery Method Mechanical Ventilator Weight: 187 lb 9.814 oz Body Mass Index (BMI) 27.4 Intake and Output for Last 24 Hours 07/05/19 07/06/19 07/07/19 23:59 23:59 23:59 Intake Total 3429.99 / 3679.99 3496.32 / 3625.12 241.70 / 241.70 Output Total 1120 / 2120 1500 / 1500 Balance 3429.99 / 3679.99 2376.32 / 1505.12 -1258.30 / -1258.30 Labs (Last 48 Hours) 07/04/19 07/04/19 07/04/19 10:30 12:30 12:30 WBC RBC Hgb Hct MCV MCH MCHC RDW Std Deviation RDW Coeff of Jessica Plt Count MPV Immature Gran % (Auto) Neut % (Auto) Lymph % (Auto) Gates % (Auto) Eos % (Auto) Baso % (Auto) Absolute Neuts (auto) Absolute Lymphs (auto) Total Counted Neutrophils % (Manual) Lymphocytes % (Manual) Monocytes % (Manual) Eosinophils % (Manual) Basophils % (Manual) Metamyelocytes % Nucleated RBC % Differential Comment Diff Path Review Reviewed Platelet Estimate RBC Morphology Anisocytosis Specimen Type Sample Site pH Bicarbonate Actual POC Total CO2 Base Excess O2 Saturation O2 % ABG pCO2 ABG pO2 Dereje Test Respiration Rate O2 Delivery Device Vent Mode Tidal Volume POC PEEP Blood Gas Notified Whom Blood Gas Notified Time Sodium Potassium Chloride Carbon Dioxide Anion Gap BUN Creatinine Estim Creat Clear Calc Est GFR (MDRD) Af Amer Est GFR (MDRD) Non-Af BUN/Creatinine Ratio Glucose Calcium Magnesium Total Creatine Kinase Triglycerides Vancomycin Trough COVID-19 (RYAN) MRSA (PCR) Miscellaneous Test Blood Type O POSITIVE Antibody Screen NEGATIVE Crossmatch See Detail See Detail 07/04/19 07/04/19 07/05/19 17:00 17:00 06:18 WBC RBC Hgb Hct MCV MCH MCHC RDW Std Deviation RDW Coeff of Jessica Plt Count MPV Immature Gran % (Auto) Neut % (Auto) Lymph % (Auto) Gates % (Auto) Eos % (Auto) Baso % (Auto) Absolute Neuts (auto) Absolute Lymphs (auto) Total Counted Neutrophils % (Manual) Lymphocytes % (Manual) Monocytes % (Manual) Eosinophils % (Manual) Basophils % (Manual) Metamyelocytes % Nucleated RBC % Differential Comment Diff Path Review Reviewed Platelet Estimate RBC Morphology Anisocytosis Specimen Type Sample Site pH Bicarbonate Actual POC Total CO2 Base Excess O2 Saturation O2 % ABG pCO2 ABG pO2 Dereje Test Respiration Rate O2 Delivery Device Vent Mode Tidal Volume POC PEEP Blood Gas Notified Whom Blood Gas Notified Time Sodium Potassium Chloride Carbon Dioxide Anion Gap BUN Creatinine Estim Creat Clear Calc Est GFR (MDRD) Af Amer Est GFR (MDRD) Non-Af BUN/Creatinine Ratio Glucose Calcium Magnesium Total Creatine Kinase Triglycerides Vancomycin Trough COVID-19 (RYAN) MRSA (PCR) Miscellaneous Test Cancelled Blood Type Antibody Screen Crossmatch 07/05/19 07/05/19 07/05/19 06:18 16:35 16:35 WBC RBC Hgb 7.5 L Hct 23.0 L MCV MCH MCHC RDW Std Deviation RDW Coeff of Jessica Plt Count MPV Immature Gran % (Auto) Neut % (Auto) Lymph % (Auto) Gates % (Auto) Eos % (Auto) Baso % (Auto) Absolute Neuts (auto) Absolute Lymphs (auto) Total Counted Neutrophils % (Manual) Lymphocytes % (Manual) Monocytes % (Manual) Eosinophils % (Manual) Basophils % (Manual) Metamyelocytes % Nucleated RBC % Differential Comment Diff Path Review Platelet Estimate RBC Morphology Anisocytosis Specimen Type Sample Site pH Bicarbonate Actual POC Total CO2 Base Excess O2 Saturation O2 % ABG pCO2 ABG pO2 Dereje Test Respiration Rate O2 Delivery Device Vent Mode Tidal Volume POC PEEP Blood Gas Notified Whom Blood Gas Notified Time Sodium 134 L Potassium 4.1 Chloride 102 Carbon Dioxide 24.0 Anion Gap 8 BUN 13 Creatinine 0.65 Estim Creat Clear Calc 92.58 Est GFR (MDRD) Af Amer 118 Est GFR (MDRD) Non-Af 98 BUN/Creatinine Ratio 20.0 Glucose 78 Calcium 7.6 L Magnesium 1.5 L Total Creatine Kinase Triglycerides Vancomycin Trough 24.7 H COVID-19 (RYAN) MRSA (PCR) Miscellaneous Test Blood Type Antibody Screen Crossmatch 07/06/19 07/06/19 07/06/19 07:05 07:05 07:05 WBC 2.9 L RBC 2.13 L Hgb 7.5 L Hct 23.2 L MCV 108.9 H MCH 35.2 H MCHC 32.3 RDW Std Deviation 74.5 H RDW Coeff of Jessica 19.1 H Plt Count 162 MPV 9.8 Immature Gran % (Auto) Neut % (Auto) Not Reportable Lymph % (Auto) Gates % (Auto) Eos % (Auto) Baso % (Auto) Absolute Neuts (auto) 2.6 Absolute Lymphs (auto) 0.17 L Total Counted 100 Neutrophils % (Manual) 88 H Lymphocytes % (Manual) 6 L Monocytes % (Manual) 3 Eosinophils % (Manual) 1 Basophils % (Manual) 1 Metamyelocytes % 1 Nucleated RBC % Differential Comment Diff Path Review Reviewed Platelet Estimate ADEQUATE RBC Morphology N CHROM Anisocytosis 1+ Specimen Type Sample Site pH Bicarbonate Actual POC Total CO2 Base Excess O2 Saturation O2 % ABG pCO2 ABG pO2 Dereje Test Respiration Rate O2 Delivery Device Vent Mode Tidal Volume POC PEEP Blood Gas Notified Whom Blood Gas Notified Time Sodium 138 Potassium 5.2 H Chloride 108 H Carbon Dioxide 25.0 Anion Gap 5 BUN 12 Creatinine 0.68 Estim Creat Clear Calc 88.50 Est GFR (MDRD) Af Amer 112 Est GFR (MDRD) Non-Af 93 BUN/Creatinine Ratio 17.7 Glucose 86 Calcium 7.6 L Magnesium Total Creatine Kinase 60 Triglycerides 113 Vancomycin Trough COVID-19 (RYAN) MRSA (PCR) Miscellaneous Test Blood Type Antibody Screen Crossmatch 07/06/19 07/06/19 07/06/19 08:34 16:29 17:00 WBC RBC Hgb Hct MCV MCH MCHC RDW Std Deviation RDW Coeff of Jessica Plt Count MPV Immature Gran % (Auto) Neut % (Auto) Lymph % (Auto) Gates % (Auto) Eos % (Auto) Baso % (Auto) Absolute Neuts (auto) Absolute Lymphs (auto) Total Counted Neutrophils % (Manual) Lymphocytes % (Manual) Monocytes % (Manual) Eosinophils % (Manual) Basophils % (Manual) Metamyelocytes % Nucleated RBC % Differential Comment Diff Path Review Platelet Estimate RBC Morphology Anisocytosis Specimen Type ART Sample Site L BRACHIAL pH 7.37 Bicarbonate Actual 24.2 POC Total CO2 25 Base Excess -1 O2 Saturation 95 O2 % 50 ABG pCO2 41.5 ABG pO2 78 Dereje Test NA Respiration Rate 14 O2 Delivery Device Vent Vent Mode AC Tidal Volume 450 POC PEEP 5 Blood Gas Notified Whom ICU MD Blood Gas Notified Time 1709 Sodium Potassium Chloride Carbon Dioxide Anion Gap BUN Creatinine Estim Creat Clear Calc Est GFR (MDRD) Af Amer Est GFR (MDRD) Non-Af BUN/Creatinine Ratio Glucose Calcium Magnesium Total Creatine Kinase Triglycerides Vancomycin Trough 17.9 H COVID-19 (RYAN) MRSA (PCR) Negative Miscellaneous Test Blood Type Antibody Screen Crossmatch 07/07/19 07/07/19 03:15 03:15 WBC 2.7 L RBC 1.94 L Hgb 6.9 L Hct 21.1 L MCV 108.8 H MCH 35.6 H MCHC 32.7 RDW Std Deviation 71.3 H RDW Coeff of Jessica 18.4 H Plt Count 174 MPV 9.8 Immature Gran % (Auto) 0.800 Neut % (Auto) 91.2 H Lymph % (Auto) 3.8 L Gates % (Auto) 3.8 Eos % (Auto) 0.0 Baso % (Auto) 0.4 Absolute Neuts (auto) 2.4 Absolute Lymphs (auto) 0.10 L Total Counted Neutrophils % (Manual) Lymphocytes % (Manual) Monocytes % (Manual) Eosinophils % (Manual) Basophils % (Manual) Metamyelocytes % Nucleated RBC % 0.8 Differential Comment SCANNED Diff Path Review May foll Platelet Estimate RBC Morphology Anisocytosis Specimen Type Sample Site pH Bicarbonate Actual POC Total CO2 Base Excess O2 Saturation O2 % ABG pCO2 ABG pO2 Dereje Test Respiration Rate O2 Delivery Device Vent Mode Tidal Volume POC PEEP Blood Gas Notified Whom Blood Gas Notified Time Sodium 138 Potassium 4.4 Chloride 104 Carbon Dioxide 28.0 Anion Gap 6 BUN 14 Creatinine 0.62 Estim Creat Clear Calc 97.06 Est GFR (MDRD) Af Amer 125 Est GFR (MDRD) Non-Af 103 BUN/Creatinine Ratio 22.7 H Glucose 117 H Calcium 7.5 L Magnesium Total Creatine Kinase Triglycerides Vancomycin Trough COVID-19 (RYAN) MRSA (PCR) Miscellaneous Test Blood Type Antibody Screen Crossmatch Microbiology 07/04/19 10:25 Blood Culture (Wb) - Anticubital Right Blood Culture - Preliminary No growth in 48 hours. 07/04/19 10:30 Blood Culture (Wb) - Right Forearm Blood Culture - Preliminary No growth in 48 hours. 07/04/19 10:30 Urine Catheter - Catheter Urine Culture - Final Culture exhibits no growth. Medical Necessity - Tobacco Use Smoking Status: Former smoker Tobacco Use: Non-smoker Assessment/Plan All Active Problems (Last Reviewed 07/04/19 @ 14:[address] Pawan Gunter MD) Cellulitis (Acute) Viral illness (Acute) Severe sepsis (Acute) History of tonsillectomy and adenoidectomy (Resolved) Aftercare following left ankle joint replacement surgery (Resolved) History of partial mastectomy of both breasts (Resolved) History of breast biopsy (Resolved) Chest pain (Acute) Breast cancer (Resolved) RECOMMENDATIONS: 1. Continue empiric antimicrobials per ID recommendations. 2. Continue hydroxychloroquine per ID recommendations over concerns for false negative COVID testing. 3. Obtain BNP and troponin. 4. Obtain echocardiogram. 5. Wean FiO2 to maintain oxygen saturations at or above 90%. 6. Administer 1 unit of packed red blood cells with IV Lasix 40 mg. 7. Okay to start tube feeds today from my perspective. IMPRESSIONS: 1. Acute hypoxemic respiratory failure Initial clinical concern was for a possible viral pneumonia, given extensive groundglass changes noted on CT chest. In addition, the patient's anemia is likely complicating the clinical picture. She did decompensate from a respiratory perspective on July 05, which led to early preventative intubation in the ICU setting. Although the patient's coronavirus testing was later resulted as negative by the [facility] on July 05, given the patient's clinical state, infectious diseases elected to continue the patient's hydroxychloroquine over concerns that the patient's testing may represent a false negative. Accordingly, we will plan to continue current supportive measures including invasive mechanical ventilatory support, with plans to wean FiO2 to maintain oxygen saturations at or above 90%. Tube feeds can be started today. We will also obtain an echocardiogram and check BNP. Additional diuretics may need to be administered today to help facilitate weaning from invasive mechanical ventilatory support. Cardiac monitoring for chloroquine/hydroxychloroquine for suspected or confirmed COVID-[address] Place patient on telemetry and obtain baseline twelve-lead EKG. 2. Discontinue all QT prolonging medications if possible. 3. Correct electrolyte abnormalities, specifically maintain potassium greater than 4 and magnesium greater than 2. 4. Obtain EKG 2 hours after first dose. -If predrug QRS duration is less than 120 ms, can proceed with second dose if QTC is less than 520 ms. -If predrug QRS duration is greater than 120 ms, with [place] conduction, can proceed to give second dose if the QTC is less than 570 ms. -For paced QRS complex, QTC monitoring is not indicated. 5. Unless there is a worrisome arrhythmia, the EKG needs to be obtained only at baseline and after the first dose of the medication. 2. Macrocytic anemia Appears to have worsened during this hospitalization. The patient has already received 1 unit of packed red blood cells to date. Hemoglobin this morning was noted to be 6.9 g/dL. We will plan to transfusion additional blood products today. The patient will also receive IV Lasix with blood products. Plan to check H&H posttransfusion. Continue Protonix twice daily. 3. History of Takotsubo cardiomyopathy/personal history of breast cancer with mets/chronic pain syndrome/GERD Complicates care, management, recovery and prognosis. Continue home medications as indicated. TIME: 38 minutes of critical care time, independent of procedures, was spent addressing the patient's acute hypoxemic respiratory failure, concern for viral pneumonia, anemia, review of all data and collaboration with the care team. [id number]) [id number] Critical care first hour
--- NOTE | 2019-07-07 06:56 | ECHOD_ITS ---
Reason For Study: DYSPNEA/SOB Procedure This was a 2D Doppler, Color Flow transthoracic echocardiogram. The study was technically difficult. PT on vent and very restless. Exam performed portable in ICU/CCU. Left Ventricle Mildly dilated left ventricle. The estimated ejection fraction is 50 %. Unable to assess diastolic dysfunction due to arrhythmia. There is mild global hypokinesis of the left ventricle. Right Ventricle Normal size and thickness. Normal systolic function. Atria The left atrium is severely enlarged. The right atrium is moderately enlarged. Normal atrial septum. Mitral Valve The mitral valve is structurally normal. No prolapse or stenosis seen. Tricuspid Valve Normal tricuspid valve. Mild (1+) tricuspid valve insufficiency. Right ventricular systolic pressure estimated to be 58 mmHg. Moderate pulmonary hypertension. Aortic Valve Normal aortic valve. Trisinus/trileaflet aortic valve. Pulmonic Valve Normal pulmonic valve. Great Vessels Normal aortic root. Normal arch. Normal inferior vena cava. Inferior vena cava collapse with sniff. Pericardium/Pleural No pericardial effusion. MMode/2D Measurements & Calculations LVIDd: 5.2 cm IVSd: 1.1 cm Ao root diam: 3.4 cm LVIDs: 3.9 cm LVPWd: 0.92 cm LA dimension: 4.8 cm FS: 25.0 % LAV(MOD-bp): 98.1 ml LA A4 area: 28.8 cm2 RA A4 area: 19.1 cm2 LAV(MOD-bp) Indexed: 48.9 ml/m2 LAV(MOD-sp2): 94.8 ml LAV(MOD-sp4): 99.4 ml Doppler Measurements & Calculations MV E max sal: 81.2 cm/sec Lat Peak E' Sal: 11.2 cm/sec Med Peak E' Sal: 4.9 cm/sec MV A max sal: 55.0 cm/sec E/E' lat: 7.3 E/E' med: 16.4 MV E/A: 1.5 Ao V2 max: 172.6 cm/sec LV V1 max: 126.5 cm/sec PA V2 max: 82.1 cm/sec Ao max P.9 mmHg LV V1 max P.4 mmHg Ao V2 mean: 110.8 cm/sec LV V1 mean P.3 mmHg Ao mean P.5 mmHg LV V1 mean: 86.6 cm/sec Ao V2 VTI: 32.3 cm LV V1 VTI: 25.8 cm PI end-d sal: 83.8 cm/sec TR max sal: 346.2 cm/sec TR max P.9 mmHg Interpretation Summary Mildly dilated left ventricle. The estimated ejection fraction is 50 %. Unable to assess diastolic dysfunction due to arrhythmia. There is mild global hypokinesis of the left ventricle. The left atrium is severely enlarged. The right atrium is moderately enlarged. Mild (1+) tricuspid valve insufficiency. Right ventricular systolic pressure estimated to be 58 mmHg. Moderate pulmonary hypertension. Compared to echo report dated 10/22/2013, LV Function has decreased from 65% to 50%, and RVSP has increased from 22 to 58 mm Hg. Ordering Physician: Yimi Sue Referring Physician: Liban Gomez Performed By: Anh Herrera, BRIDGER, RVT
--- NOTE | 2019-07-07 07:01 | RAD_ITS ---
STUDY: X-RAY CHEST REASON FOR EXAM: Female, 63 years old. Respiratory failure TECHNIQUE: Frontal view of the chest COMPARISON: 07/06/2019 FINDINGS: The support lines and tubes are unchanged. Again noted is dense airspace opacity throughout the right hemithorax, more pronounced in the mid to lower lung field. There are stable patchy airspace opacity on the left. There is no pneumothorax. There is no pleural effusion. The heart is mildly enlarged, but stable in size. Again noted are spinal fusion rods. RAD/Chest 1 View (Portable) IMPRESSION: Stable exam. Electronically Signed: Osvaldo Vicente, at 10:20 EDT Tel , Service support ,
--- NOTE | 2019-07-07 07:14 | PCM.PN.HOSP ---
Patient Problems: Active and Suspected Problems (Last Reviewed 07/04/19 @ 14:[address] Pawan Gunter MD) Viral illness (Acute) Severe sepsis (Acute) Reason for Visit: Acute respiratory failure Subjective: Patient respiratory status the compensated resulting in patient being electively intubated and transferred to the intensive care unit. Her COVID 19 as a result came back negative however there is still high suspicion for coag given her relative lymphopenia and leukopenia. Case was discussed with both Dr. Sue as well as Dr. Leggett plan is to continue current treatment with hydroxychloroquine. Patient will also undergo subsequent evaluation with a 2D echo to assess her EF and Lasix administered and if patient fails to respond patient will undergo repeat COVID 19 testing Objective: GENERAL: Patient on the vent HEENT: Atraumatic; EYES; Anicteric, Normal Conjunctiva NECK; supple, normal thyroid, RESPIRATORY: Diminished to auscultation CARDIOVASCULAR: Regular S1 S2, GI: soft, normoactive bowel sounds, : No Renal angle tenderness; EXTREMITIES: No edema, no clubbing, MUSCULOSKELETAL: no muscle waisting NEURO: No lateralizing signs SKIN: No Rash PSYCH; unable to assess patient on the vent Vitals/I&O's: Vital Signs Temp Pulse Resp BP Pulse Ox 98.0 F 58 L 16 101/57 L 93 07/07/19 03:00 07/07/19 07:00 07/07/19 07:00 07/07/19 07:00 07/07/19 07:00 Oxygen Flow Rate (L/min) 12 Oxygen Delivery Method Mechanical Ventilator Weight: 85.1 kg Body Mass Index (BMI) 27.4 Intake and Output for Last 24 Hours 07/05/19 07/06/19 07/07/19 23:59 23:59 23:59 Intake Total 3429.99 / 3679.99 3496.32 / 3625.12 250.60 / 250.60 Output Total 1120 / 2120 1500 / 1500 Balance 3429.99 / 3679.99 2376.32 / 1505.12 -1249.40 / -1249.40 Microbiology Past 72 Hours 07/04/19 10:25 Blood Culture (Wb) - Anticubital Right Blood Culture - Preliminary No growth in 48 hours. 07/04/19 10:30 Blood Culture (Wb) - Right Forearm Blood Culture - Preliminary No growth in 48 hours. 07/04/19 10:30 Urine Catheter - Catheter Urine Culture - Final Culture exhibits no growth. 07/04/19 10:30 Urine, Clean Catch Legionella Antigen - Final 07/04/19 10:30 Urine, Clean Catch Streptococcus pneumoniae Antigen (M - Final 07/04/19 12:50 Mucosa - Nose Respiratory Panel (PCR) - Final 07/04/19 12:25 Stool Stool Occult Blood (LAUREN) - Final Occult Blood Positive 07/04/19 10:32 Mucosa - Nose Influenza Types A,B Direct FA (LAUREN) - Final Laboratory Results 07/04/19 17:00: COVID-19 (RYAN) 07/06/19 07:05: WBC 2.9 L, RBC 2.13 L, Hgb 7.5 L, Hct 23.2 L, MCV 108.9 H, MCH 35.2 H, MCHC 32.3, RDW Std Deviation 74.5 H, RDW Coeff of Jessica 19.1 H, Plt Count 162, MPV 9.8, Neut % (Auto) Not Reportable, Absolute Neuts (auto) 2.6, Absolute Lymphs (auto) 0.17 L, Total Counted 100, Neutrophils % (Manual) 88 H, Lymphocytes % (Manual) 6 L, Monocytes % (Manual) 3, Eosinophils % (Manual) 1, Basophils % (Manual) 1, Metamyelocytes % 1, Diff Path Review Reviewed, Platelet Estimate ADEQUATE, RBC Morphology N CHROM, Anisocytosis 1+ 07/06/19 07:05: Sodium 138, Potassium 5.2 H, Chloride 108 H, Carbon Dioxide 25.0, Anion Gap 5, BUN 12, Creatinine 0.68, Estim Creat Clear Calc 88.50, Est GFR (MDRD) Af Amer 112, Est GFR (MDRD) Non-Af 93, BUN/Creatinine Ratio 17.7, Glucose 86, Calcium 7.6 L 07/06/19 07:05: Total Creatine Kinase 60, Triglycerides 113 07/06/19 08:34: Vancomycin Trough 17.9 H 07/06/19 16:29: MRSA (PCR) Negative 07/06/19 17:00: Specimen Type ART, Sample Site L BRACHIAL, pH 7.37, Bicarbonate Actual 24.2, POC Total CO2 25, Base Excess -1, O2 Saturation 95, O2 % 50, ABG pCO2 41.5, ABG pO2 78, Dereje Test NA, Respiration Rate 14, O2 Delivery Device Vent, Vent Mode AC, Tidal Volume 450, POC PEEP 5, Blood Gas Notified Whom ICU MD, Blood Gas Notified Time 1709 07/07/19 03:15: WBC 2.7 L, RBC 1.94 L, Hgb 6.9 L, Hct 21.1 L, MCV 108.8 H, MCH 35.6 H, MCHC 32.7, RDW Std Deviation 71.3 H, RDW Coeff of Jessica 18.4 H, Plt Count 174, MPV 9.8, Immature Gran % (Auto) 0.800, Neut % (Auto) 91.2 H, Lymph % (Auto) 3.8 L, Barton % (Auto) 3.8, Eos % (Auto) 0.0, Baso % (Auto) 0.4, Absolute Neuts (auto) 2.4, Absolute Lymphs (auto) 0.10 L, Nucleated RBC % 0.8, Differential Comment SCANNED, Diff Path Review August07/07/19 03:15: Sodium 138, Potassium 4.4, Chloride 104, Carbon Dioxide 28.0, Anion Gap 6, BUN 14, Creatinine 0.62, Estim Creat Clear Calc 97.06, Est GFR (MDRD) Af Amer 125, Est GFR (MDRD) Non-Af 103, BUN/Creatinine Ratio 22.7 H, Glucose 117 H, Calcium 7.5 L 07/07/19 03:15: Troponin I Pending 07/07/19 03:15: B-Natriuretic Peptide Pending Current Medications Albuterol Sulfate (Ventolin Aerosols) 2.5 mg INHALATION Q2H PRN PRN PRN Reason: Shortness of Breath/Wheezing Last Admin: 07/06/19 11:10 Dose: 2.5 mg Documented by: Chlorhexidine Gluconate () 15 ml PO BID [facility] Last Admin: 07/06/19 23:00 Dose: 15 ml Documented by: Hydroxychloroquine Sulfate 200 mg/ Compound Med 4 ml/Compound Med 4 ml mg GT BID [facility] Stop: 07/10/19 22:01 Dexamethasone (Decadron) 2 mg GT DAILY [facility] Enoxaparin Sodium (Lovenox) 40 mg SC DAILY [facility] Last Admin: 07/06/19 09:06 Dose: 40 mg Documented by: Famotidine (Pepcid) 20 mg GT BID [facility] Last Admin: 07/06/19 23:01 Dose: 20 mg Documented by: Gabapentin (Neurontin) 300 mg GT TID [facility] Last Admin: 07/07/19 04:59 Dose: 300 mg Documented by: Ceftriaxone Sodium 2 gm/ (Sodium Chloride) 50 mls @ 100 mls/hr IV Q24 [facility] Last Infusion: 07/06/19 14:57 Dose: Infused Documented by: Fentanyl () 100 mls @ 2.5 mls/hr IV UD [facility]NET[facility]; Protocol Last Titration: 07/07/19 07:00 Dose: 25 mcg/hr, 2.5 mls/hr Documented by: Propofol (Diprivan) 1,000 mg in 100 mls @ 5.106 mls/hr CONT INF .Q12H [facility]; Protocol Last Titration: 07/07/19 07:00 Dose: 12.5 mcg/kg/min, 6.4 mls/hr Documented by: Magnesium Oxide (Mag-Ox 400) 400 mg GT BID [facility] Last Admin: 07/06/19 23:01 Dose: 400 mg Documented by: Sodium Chloride () 10 - 40 ml IV UD PRN PRN Reason: SALINE FLUSH Last Admin: 07/06/19 17:54 Dose: 30 ml Documented by: STROKE Vital Signs/Narrative: Vital Signs Pulse Resp BP Pulse Ox 07/07/19 07:00 58 L 16 101/57 L 93 07/07/19 06:47 62 20 H 93 07/07/19 06:00 55 L 14 90/57 L 94 07/07/19 05:00 56 L 14 89/63 L 94 07/07/19 04:00 56 L 14 82/55 L 92 Medical Necessity - Tobacco Use Smoking Status: Former smoker Tobacco Use: Non-smoker Assessment/Plan All Active Problems (Last Reviewed 07/04/19 @ 14:[address] Pawan Gunter MD) Cellulitis (Acute) Viral illness (Acute) Severe sepsis (Acute) History of tonsillectomy and adenoidectomy (Resolved) Aftercare following left ankle joint replacement surgery (Resolved) History of partial mastectomy of both breasts (Resolved) History of breast biopsy (Resolved) Chest pain (Acute) Breast cancer (Resolved) Patient is a 63-year-old lady presented with progressive shortness of breath fever and chills 1. Acute viral syndrome ?CT of the chest obtained on admission demonstrated Diffuse groundglass appearance involving the right upper lobe as well as right middle lobe and areas of the right lower lobe with evidence of a bronchiectasis and scarring in the right lower lobe. Mild degree of increased ground glass appearance in the left upper lobe. This is highly suspicious for viral pneumonia. Patient placed in isolation while was tested for COVID 19 is being pursued ?07/05/2019; COVID 19 test results still pending. Patient was seen in consultation by Dr. Leggett with infectious disease Case discussed with him. ?07/06/2019: Patient exhibiting some clinical improvement. COVID 19 test still pending. ?07/07/2019 ; Patient was intubated on 07/06/2019 following respiratory decompensation. Case was discussed with both pulmonary medicine as well as ID patient initiated on hydroxychloroquine. Her COVID 19 test however came back negative. There is still high suspicion for possible COVID 19 infection patient will therefore remain on current treatment 2. Acute hypoxic respiratory failure ?Patient was intubated on 07/06/2019 following respiratory decompensation. Case was discussed with both pulmonary medicine as well as ID patient initiated on hydroxychloroquine. Plans for patient to undergo diuresis and if there is no improvement in her respiratory status patient undergo repeat testing for COVID 19 3. Suspected acute congestive heart failure ?Patient currently being diuresed echo ordered. 4. Sepsis ?Secondary to suspected viral syndrome with patient lactic acid being greater than 2.1 cultures were sent started on broad-spectrum antibiotic therapy with vancomycin and Zosyn and resuscitated with IV fluid ?07/05/2019: Cultures still pending 5. History of breast cancer ?With mets to the bone patient is currently on Ibrance which is being held. 6. Anemia ?Secondary to anemia of malignancy subsequent therapy monitoring H&H with plans to transfuse if hemoglobin falls below 7 or becomes symptomatic ?07/05/2019 and order was given for patient to be transfused with 1 unit PRBC with hemoglobin having dropped to 6.7. Posttransfusion H&H ordered ?07/06/2019 hemoglobin up to 7.5. 12/07/2019: JUAN LUIS globin 6.9; patient to receive additional blood transfusion 7. History of Takotsubo cardiomyopathy ?Currently stable 8. Hyponatremia ?Monitoring daily BMPs ?07/06/2019; sodium levels back within normal limits 9. Hypomagnesemia corrected per protocol 10. Hypocalcemia ?Initiated calcium supplementation 11. DVT prophylaxis ?Lovenox Inpatient E&M: 35590 Subs Hosp L3
[2019-07-07] MEDS: Furosemide 40 MG/4 ML Vial IV ×2 (08:15→17:47)
--- NOTE | 2019-07-07 09:06 | CM.UR ---
Participated in interdisciplinary rounds this am. ID states presumptive + covid-19. Test was negative. They are retesting with a lavage and deep suction. Currently day 2 on ventilator. Desats when coughs or is suctioned. Tube feeding recommendations will be put in by nutrition. Discharge plan is to return to [facility]. Carlos Aden RN,CCM.
--- NOTE | 2019-07-07 09:07 | PCM.NTREPORT ---
Nutrition Therapy Report - History Nutrition Services has been consulted to:: Manage enteral nutrition Current diet / nutrition support order:: NPO - Anthropometric Measurements Height:: 5 ft 9 in Weight:: 85.1 kg Body Mass Index (BMI):: 27.7 - Relevant Labs Relevant Labs:: WBC 2.7 K/mm3 (4.4-11.0) L 07/07/19 03:15 RBC 1.94 M/mm3 (4.2-5.4) L 07/07/19 03:15 Hgb 6.9 g/dL (12.0-15.0) L 07/07/19 03:15 Hct 21.1 % (37-47) L 07/07/19 03:15 MCV 108.8 fL (81-99) H 07/07/19 03:15 MCH 35.6 pg (27.0-32.0) H 07/07/19 03:15 RDW Std Deviation 71.3 fl (35.1-43.9) H 07/07/19 03:15 RDW Coeff of Jessica 18.4 % (11.6-14.6) H 07/07/19 03:15 Immature Gran % (Auto) 2.600 % (0.0-0.9) H 07/05/19 06:18 Neut % (Auto) 91.2 % (47-70) H 07/07/19 03:15 Lymph % (Auto) 3.8 % (19-41) L 07/07/19 03:15 Absolute Lymphs (auto) 0.10 X10^3/uL (0.83-4.51) L 07/07/19 03:15 Neutrophils % (Manual) 88 % (47-70) H 07/06/19 07:05 Lymphocytes % (Manual) 6 % (19-41) L 07/06/19 07:05 Sodium 134 mmol/L (136-145) L 07/05/19 06:18 Potassium 5.2 mmol/L (3.5-5.1) H 07/06/19 07:05 Chloride 108 mmol/L (98-107) H 07/06/19 07:05 BUN/Creatinine Ratio 22.7 RATIO (10-20) H 07/07/19 03:15 Glucose 117 mg/dL (74-106) H 07/07/19 03:15 Lactic Acid 2.1 mmol/L (0.4-1.9) H* 07/04/19 10:30 Calcium 7.5 mg/dL (8.5-10.1) L 07/07/19 03:15 Magnesium 1.5 mg/dL (1.6-2.6) L 07/05/19 06:18 ALT 10 U/L (13-56) L 07/04/19 10:30 B-Natriuretic Peptide 203.0 pg/mL (0-100) H 07/04/19 10:30 Albumin 2.4 g/dL (3.2-5.0) L 07/04/19 10:30 Albumin/Globulin Ratio 0.6 RATIO (0.9-2.4) L 07/04/19 10:30 - Assessment Food / Nutrition-Related History:: Discussed in ICU rounds. Per EMR pt transferred to ICU d/t worsening respiratory status and underwent elective intubation. COVID test cameback negative- plans to retest pt d/t concerns that the patient's testing may represent a false negative. OG in place. Dr. Sue provided verbal consent for RDN to order pt TF. TF to be intiated today. Pt w/ wt gain of 0.8 kg w/ CBW 85.1 kg. Per RN note pt w/ Bilat hand 1+ pitting edema. - Nutrition Diagnosis Problem / Etiology / Signs & Symptoms (PES):: Inadequate oral intake related to respiratory distress as evidenced by pt NPO status and mechanically ventilated. Evidence of Malnutrition Exists:: No - Nutrition Intervention Nutrition Prescription:: [id number] calories, 74-84 g protein - Food / Nutrient Delivery Interventions Summary of nutrition intervention:: Dr. Sue provided verbal consent for RDN to order pt TF. TF to be intiated today. Will monitor TF tolerance as initiated. Adjust TF and flushes as indicated. Nutrition support ordered as / adjusted to:: Rec Vital AF 1.2 via OG at goal rate of 65 ml/hr w/ 120 ml H2O flush every 4 hours to provide 1872 calories, 117 g protein, 1985 ml free water per day. Would intitate TF at 20ml/hr and increase by 20ml every 8 hours as pt tolerates until goal rate is achieved. Rec diet advanced as pt medically able to regular diet w/ ONS. Nutrition education provided?: No - MNT Monitoring Further MNT monitoring and evaluation required?: Yes MNT Follow-up in:: 3-5 days - Please call RDN at [phone] w/ questions/concerns.
[2019-07-07 09:23] LABS: BNP,B-Type NATRIURETIC PEPTIDE 241.7 pg/mL (0-100)
--- NOTE | 2019-07-07 09:45 | NURSING ---
call to pts dtr Alba, update given, questions answered, reassurance given. POC disc. consent for PICC/PRBCx received.
[2019-07-07] MEDS: 0.9% Saline Lock 10 ML Syringe IV ×2 (10:52→17:52)
[2019-07-07] MEDS: Magnesium Oxide 400 MG Tablet GT ×2 (10:52→21:10)
[2019-07-07] MEDS: Chlorhexidine 15 ML PO ×2 (10:52→21:12)
[2019-07-07] MEDS: dexAMETHasone 4 MG Tablet 2 MG GT (10:53)
[2019-07-07] MEDS: Enoxaparin 40 MG/0.4 ML Syringe SC (10:53)
[2019-07-07] MEDS: Vital AF 1.2 Cal Liquid 1,000 ML 65 ML GT (11:27)
[2019-07-07] MEDS: fentaNYL drip 100 ML 2.5 MCG IV (14:33)
[2019-07-07] MEDS: Propofol 10MG/Ml 1,000 MG/100 ML Bottle 6.4 MG CONT INF (14:37)
[2019-07-08] VITALS (34 sets, daily range): BP systolic 92–119; BP diastolic 53–86; PULSE 55–93; RESP 10–23; TEMP 36.6–36.9; O2SAT 61–99
[2019-07-08] MEDS: Propofol 10MG/Ml 1,000 MG/100 ML Bottle 6.4 MG CONT INF (02:06)
[2019-07-08 04:13] LABS: Absolute Lymphocyte Count 0.14 X10^3/uL (0.83-4.51); Eosinophil# 0.01 X10^3/uL; Eosinophils% 0.3 % (0-5); Hematocrit 29.8 % (37-47); Hemoglobin 10.3 g/dL (12.0-15.0); Lymphocyte # 0.14 X10^3/ul (4.0); Lymphocyte % 4.1 % (19-41); Mean Corp Hgb Conc 34.6 g/dL (32-36); Mean Corpuscular Volume 101.4 fL (81-99); Mean Platelet Vol. 9.5 fl (6.2-12.0); Monocyte# 0.22 X10^3/uL; Monocyte% 6.5 % (0-10); NRBC Flagged by Analyzer 1.8 % (0-5); Neutrophil # 2.99 X10^3/uL (2.7-7.7); Neutrophil % 87.9 % (47-70); POSITIVE DIFFERENTIAL YES; POSITIVE MORPHOLOGY YES; Platelet Count 176 K/mm3 (150-450); RBC Distribution Width CV 22.5 % (11.6-14.6); Red Blood Count 2.94 M/mm3 (4.2-5.4); White Blood Count 3.4 K/mm3 (4.4-11.0)
[2019-07-08 04:36] LABS: ALB/GLOB Ratio 0.4 RATIO (0.9-2.4); AST(SGOT) 27 U/L (15-37); Alanine Aminotransfer ALT/SGPT 9 U/L (13-56); Alkaline Phosphatase 71 U/L (45-117); Anion Gap 7 (5-15); BUN 27 mg/dL (7-18); BUN/Creat Ratio 30.8 RATIO (10-20); Calcium,Total 8.1 mg/dL (8.5-10.1); Chloride 102 mmol/L (98-107); Creatinine, Serum 0.88 mg/dL (0.55-1.02); EST Glomerular Filtration Rate 69 mL/min (>60); Est Glom Filt Rate - Afr Amer 84 mL/min (>60); Estimated Creatinine Clearance 68.38 ml/min; Globulin 4.5 g/dL (2.2-4.2); Glucose 105 mg/dL (74-106); Phosphorus 2.1 mg/dL (2.5-4.9); Protein, Total 6.5 g/dL (6.4-8.2); Sodium Level 138 mmol/L (136-145)
[2019-07-08 04:42] LABS: Differential Indicated SCAN CRITERIA MET
[2019-07-08] MEDS: Gabapentin 300 MG Capsule GT ×3 (05:30→21:26)
[2019-07-08] MEDS: 0.9% Saline Lock 10 ML Syringe IV ×4 (05:32→21:31)
[2019-07-08 05:53] LABS: Crenated RBC 1+; Macrocytosis 1+; Polychromasia RARE
[2019-07-08 05:54] LABS: Platelet Estimate ADEQUATE (ADEQ)
--- NOTE | 2019-07-08 05:55 | EKG12_ITS ---
Test Reason : AM EKG Blood Pressure : / mmHG Vent. Rate : 066 BPM Atrial Rate : 066 BPM P-R Int : 166 ms QRS Dur : 080 ms QT Int : 498 ms P-R-T Axes : 034 -03 062 degrees QTc Int : 522 ms Normal sinus rhythm Prolonged QT Abnormal ECG When compared with ECG of 08-JUL-2019 04:49, MANUAL COMPARISON REQUIRED, DATA IS UNCONFIRMED Confirmed by PADMINI SEALS, DOMINGA ([id number]), editorial cartoonist RADHA ELIAS ([id number]) on 07/10/2019 9:26:45 AM Referred By: TWAN Confirmed By:DOMINGA WASHINGTON MD
[2019-07-08] MEDS: TITRATION PARAMETER CHANGE 1 EACH IV (06:08)
--- NOTE | 2019-07-08 06:18 | PN_ITS ---
Subjective: The patient is afebrile, hemodynamically stable and maintaining appropriate oxygen saturations with an FIO2 requirement of 40%. The patient did well this morning with her breathing trial. She has been tolerating tube feeds without issue. The patient did receive transfusion of blood products yesterday, along with scheduled IV lasix. She diuresed well. A bronchial suction sample was obtained yesterday to facilitate COVID retesting, per ID recommendations. The patient remains on Plaquenil. The patient is currently documented to be overall net +4.8 L for the hospital admission. Renal function is stable. Objective: The patient's most recent lab work, culture data and imaging studies have all been personally reviewed. Surface echocardiogram revealed a mildly dilated LV with mild global hypokinesis and an ejection fraction of 50%. Right ventricular systolic pressure was estimated to be 58 mmHg. Stool for occult blood was positive on July 03. Infectious work-up has been negative to date. Nasopharyngeal COVID-19 testing was negative on 07/03. Given concerns for false negative testing, a deep suction sample was sent for COVID retesting on 07/06. General: - - Remains intubated and mechanically ventilated. HEENT: Atraumatic, PERRLA, Normocephalic Oral: No Gingival or Mucosal Lesions/ Ulcerations, - - Endotracheal and OG tubes remain in place. Neck: Supple, No Nodes, Trachea Midline Lungs: No wheeze, No rales, Diminished, - - Scant rhonchi Cardiovascular: Normal S1, Normal S2, No murmurs, Bradycardic Abdomen: Bowel Sounds Present, Soft, Non Tender Extremities: No clubbing, No cyanosis, No edema Skin: No breakdown Musculoskeletal: No Tenderness to Palpation of Joints or Extremities Lymphatic: No Cervical, Supraclavicular, or Inguinal Adenopathy Neurological: - - No focal neurological deficits. Vital Signs Temp Pulse Resp BP Pulse Ox 98.5 F 59 L 17 111/67 93 07/08/19 05:00 07/08/19 06:00 07/08/19 06:00 07/08/19 06:00 07/08/19 06:00 Oxygen Flow Rate (L/min) 12 Oxygen Delivery Method Mechanical Ventilator Weight: 183 lb 3.266 oz Body Mass Index (BMI) 27.7 Intake and Output for Last 24 Hours 07/06/19 07/07/19 07/08/19 23:59 23:59 23:59 Intake Total 3496.32 / 3625.12 1748.58 / 1877.48 563.50 / 563.50 Output Total 1120 / 2120 4905 / 4905 450 / 450 Balance 2376.32 / 1505.12 -3156.42 / -3027.52 113.50 / 113.50 Labs (Last 48 Hours) 07/04/19 07/04/19 07/04/19 12:30 12:30 17:00 WBC RBC Hgb Hct MCV MCH MCHC RDW Std Deviation RDW Coeff of Jessica Plt Count MPV Immature Gran % (Auto) Neut % (Auto) Lymph % (Auto) [place] % (Auto) Eos % (Auto) Baso % (Auto) Absolute Neuts (auto) Absolute Lymphs (auto) Total Counted Neutrophils % (Manual) Lymphocytes % (Manual) Monocytes % (Manual) Eosinophils % (Manual) Basophils % (Manual) Metamyelocytes % Nucleated RBC % Differential Comment Diff Path Review Platelet Estimate RBC Morphology Polychromasia Anisocytosis Macrocytosis Crenated Cell Specimen Type Sample Site pH Bicarbonate Actual POC Total CO2 Base Excess O2 Saturation O2 % ABG pCO2 ABG pO2 Dereje Test Respiration Rate O2 Delivery Device Vent Mode Tidal Volume POC PEEP Blood Gas Notified Whom Blood Gas Notified Time Sodium Potassium Chloride Carbon Dioxide Anion Gap BUN Creatinine Estim Creat Clear Calc Est GFR (MDRD) Af Amer Est GFR (MDRD) Non-Af BUN/Creatinine Ratio Glucose Calcium Phosphorus Magnesium Total Bilirubin AST ALT Alkaline Phosphatase Total Creatine Kinase Troponin I B-Natriuretic Peptide Total Protein Albumin Globulin Albumin/Globulin Ratio Triglycerides Vancomycin Trough COVID-19 (RYAN) MRSA (PCR) Blood Type O POSITIVE Antibody Screen NEGATIVE Crossmatch See Detail See Detail 07/06/19 07/06/19 07/06/19 07:05 07:05 07:05 WBC 2.9 L RBC 2.13 L Hgb 7.5 L Hct 23.2 L MCV 108.9 H MCH 35.2 H MCHC 32.3 RDW Std Deviation 74.5 H RDW Coeff of Jessica 19.1 H Plt Count 162 MPV 9.8 Immature Gran % (Auto) Neut % (Auto) Not Reportable Lymph % (Auto) [place] % (Auto) Eos % (Auto) Baso % (Auto) Absolute Neuts (auto) 2.6 Absolute Lymphs (auto) 0.17 L Total Counted 100 Neutrophils % (Manual) 88 H Lymphocytes % (Manual) 6 L Monocytes % (Manual) 3 Eosinophils % (Manual) 1 Basophils % (Manual) 1 Metamyelocytes % 1 Nucleated RBC % Differential Comment Diff Path Review Reviewed Platelet Estimate ADEQUATE RBC Morphology N CHROM Polychromasia Anisocytosis 1+ Macrocytosis Crenated Cell Specimen Type Sample Site pH Bicarbonate Actual POC Total CO2 Base Excess O2 Saturation O2 % ABG pCO2 ABG pO2 Dereje Test Respiration Rate O2 Delivery Device Vent Mode Tidal Volume POC PEEP Blood Gas Notified Whom Blood Gas Notified Time Sodium 138 Potassium 5.2 H Chloride 108 H Carbon Dioxide 25.0 Anion Gap 5 BUN 12 Creatinine 0.68 Estim Creat Clear Calc 88.50 Est GFR (MDRD) Af Amer 112 Est GFR (MDRD) Non-Af 93 BUN/Creatinine Ratio 17.7 Glucose 86 Calcium 7.6 L Phosphorus Magnesium Total Bilirubin AST ALT Alkaline Phosphatase Total Creatine Kinase 60 Troponin I B-Natriuretic Peptide Total Protein Albumin Globulin Albumin/Globulin Ratio Triglycerides 113 Vancomycin Trough COVID-19 (RYAN) MRSA (PCR) Blood Type Antibody Screen Crossmatch 07/06/19 07/06/19 07/06/19 08:34 16:29 17:00 WBC RBC Hgb Hct MCV MCH MCHC RDW Std Deviation RDW Coeff of Jessica Plt Count MPV Immature Gran % (Auto) Neut % (Auto) Lymph % (Auto) [place] % (Auto) Eos % (Auto) Baso % (Auto) Absolute Neuts (auto) Absolute Lymphs (auto) Total Counted Neutrophils % (Manual) Lymphocytes % (Manual) Monocytes % (Manual) Eosinophils % (Manual) Basophils % (Manual) Metamyelocytes % Nucleated RBC % Differential Comment Diff Path Review Platelet Estimate RBC Morphology Polychromasia Anisocytosis Macrocytosis Crenated Cell Specimen Type ART Sample Site L BRACHIAL pH 7.37 Bicarbonate Actual 24.2 POC Total CO2 25 Base Excess -1 O2 Saturation 95 O2 % 50 ABG pCO2 41.5 ABG pO2 78 Dereje Test NA Respiration Rate 14 O2 Delivery Device Vent Vent Mode AC Tidal Volume 450 POC PEEP 5 Blood Gas Notified Whom ICU MD Blood Gas Notified Time 1709 Sodium Potassium Chloride Carbon Dioxide Anion Gap BUN Creatinine Estim Creat Clear Calc Est GFR (MDRD) Af Amer Est GFR (MDRD) Non-Af BUN/Creatinine Ratio Glucose Calcium Phosphorus Magnesium Total Bilirubin AST ALT Alkaline Phosphatase Total Creatine Kinase Troponin I B-Natriuretic Peptide Total Protein Albumin Globulin Albumin/Globulin Ratio Triglycerides Vancomycin Trough 17.9 H COVID-19 (RYAN) MRSA (PCR) Negative Blood Type Antibody Screen Crossmatch 07/07/19 07/07/19 07/07/19 03:15 03:15 03:15 WBC 2.7 L RBC 1.94 L Hgb 6.9 L Hct 21.1 L MCV 108.8 H MCH 35.6 H MCHC 32.7 RDW Std Deviation 71.3 H RDW Coeff of Jessica 18.4 H Plt Count 174 MPV 9.8 Immature Gran % (Auto) 0.800 Neut % (Auto) 91.2 H Lymph % (Auto) 3.8 L [place] % (Auto) 3.8 Eos % (Auto) 0.0 Baso % (Auto) 0.4 Absolute Neuts (auto) 2.4 Absolute Lymphs (auto) 0.10 L Total Counted Neutrophils % (Manual) Lymphocytes % (Manual) Monocytes % (Manual) Eosinophils % (Manual) Basophils % (Manual) Metamyelocytes % Nucleated RBC % 0.8 Differential Comment SCANNED Diff Path Review May foll Platelet Estimate RBC Morphology Polychromasia Anisocytosis Macrocytosis Crenated Cell Specimen Type Sample Site pH Bicarbonate Actual POC Total CO2 Base Excess O2 Saturation O2 % ABG pCO2 ABG pO2 Dereje Test Respiration Rate O2 Delivery Device Vent Mode Tidal Volume POC PEEP Blood Gas Notified Whom Blood Gas Notified Time Sodium 138 Potassium 4.4 Chloride 104 Carbon Dioxide 28.0 Anion Gap 6 BUN 14 Creatinine 0.62 Estim Creat Clear Calc 97.06 Est GFR (MDRD) Af Amer 125 Est GFR (MDRD) Non-Af 103 BUN/Creatinine Ratio 22.7 H Glucose 117 H Calcium 7.5 L Phosphorus Magnesium Total Bilirubin AST ALT Alkaline Phosphatase Total Creatine Kinase Troponin I 0.037 B-Natriuretic Peptide Total Protein Albumin Globulin Albumin/Globulin Ratio Triglycerides Vancomycin Trough COVID-19 (RYAN) MRSA (PCR) Blood Type Antibody Screen Crossmatch 07/07/19 07/07/19 07/07/19 03:15 08:20 09:28 WBC RBC Hgb Hct MCV MCH MCHC RDW Std Deviation RDW Coeff of Jessica Plt Count MPV Immature Gran % (Auto) Neut % (Auto) Lymph % (Auto) [place] % (Auto) Eos % (Auto) Baso % (Auto) Absolute Neuts (auto) Absolute Lymphs (auto) Total Counted Neutrophils % (Manual) Lymphocytes % (Manual) Monocytes % (Manual) Eosinophils % (Manual) Basophils % (Manual) Metamyelocytes % Nucleated RBC % Differential Comment Diff Path Review Platelet Estimate RBC Morphology Polychromasia Anisocytosis Macrocytosis Crenated Cell Specimen Type Sample Site pH Bicarbonate Actual POC Total CO2 Base Excess O2 Saturation O2 % ABG pCO2 ABG pO2 Dereje Test Respiration Rate O2 Delivery Device Vent Mode Tidal Volume POC PEEP Blood Gas Notified Whom Blood Gas Notified Time Sodium Potassium Chloride Carbon Dioxide Anion Gap BUN Creatinine Estim Creat Clear Calc Est GFR (MDRD) Af Amer Est GFR (MDRD) Non-Af BUN/Creatinine Ratio Glucose Calcium Phosphorus Magnesium Total Bilirubin AST ALT Alkaline Phosphatase Total Creatine Kinase Troponin I B-Natriuretic Peptide 241.7 H Total Protein Albumin Globulin Albumin/Globulin Ratio Triglycerides Vancomycin Trough COVID-19 (RYAN) Pending MRSA (PCR) Blood Type Cancelled Antibody Screen Cancelled Crossmatch See Detail 07/07/19 07/07/19 07/08/19 11:30 22:50 04:00 WBC 3.4 L RBC 2.94 L Hgb 10.0 L 10.3 L Hct 30.0 L 29.8 L MCV 101.4 H D MCH 35.0 H MCHC 34.6 D RDW Std Deviation 78.0 H RDW Coeff of Jessica 22.5 H Plt Count 176 MPV 9.5 Immature Gran % (Auto) 1.200 H Neut % (Auto) 87.9 H Lymph % (Auto) 4.1 L [place] % (Auto) 6.5 Eos % (Auto) 0.3 Baso % (Auto) 0.0 Absolute Neuts (auto) 3.0 Absolute Lymphs (auto) 0.14 L Total Counted Neutrophils % (Manual) Lymphocytes % (Manual) Monocytes % (Manual) Eosinophils % (Manual) Basophils % (Manual) Metamyelocytes % Nucleated RBC % 1.8 Differential Comment Diff Path Review May foll Platelet Estimate ADEQUATE RBC Morphology Polychromasia RARE Anisocytosis Macrocytosis 1+ Crenated Cell 1+ Specimen Type Sample Site pH Bicarbonate Actual POC Total CO2 Base Excess O2 Saturation O2 % ABG pCO2 ABG pO2 Dereje Test Respiration Rate O2 Delivery Device Vent Mode Tidal Volume POC PEEP Blood Gas Notified Whom Blood Gas Notified Time Sodium Potassium Chloride Carbon Dioxide Anion Gap BUN Creatinine Estim Creat Clear Calc Est GFR (MDRD) Af Amer Est GFR (MDRD) Non-Af BUN/Creatinine Ratio Glucose Calcium Phosphorus Magnesium Total Bilirubin AST ALT Alkaline Phosphatase Total Creatine Kinase Troponin I B-Natriuretic Peptide Total Protein Albumin Globulin Albumin/Globulin Ratio Triglycerides Vancomycin Trough COVID-19 (RYAN) MRSA (PCR) Blood Type O POSITIVE Antibody Screen NEGATIVE Crossmatch See Detail 07/08/19 04:00 WBC RBC Hgb Hct MCV MCH MCHC RDW Std Deviation RDW Coeff of Jessica Plt Count MPV Immature Gran % (Auto) Neut % (Auto) Lymph % (Auto) [place] % (Auto) Eos % (Auto) Baso % (Auto) Absolute Neuts (auto) Absolute Lymphs (auto) Total Counted Neutrophils % (Manual) Lymphocytes % (Manual) Monocytes % (Manual) Eosinophils % (Manual) Basophils % (Manual) Metamyelocytes % Nucleated RBC % Differential Comment Diff Path Review Platelet Estimate RBC Morphology Polychromasia Anisocytosis Macrocytosis Crenated Cell Specimen Type Sample Site pH Bicarbonate Actual POC Total CO2 Base Excess O2 Saturation O2 % ABG pCO2 ABG pO2 Dereje Test Respiration Rate O2 Delivery Device Vent Mode Tidal Volume POC PEEP Blood Gas Notified Whom Blood Gas Notified Time Sodium 138 Potassium 4.0 Chloride 102 Carbon Dioxide 29.0 Anion Gap 7 BUN 27 H Creatinine 0.88 Estim Creat Clear Calc 68.38 Est GFR (MDRD) Af Amer 84 Est GFR (MDRD) Non-Af 69 BUN/Creatinine Ratio 30.8 H Glucose 105 Calcium 8.1 L Phosphorus 2.1 L Magnesium 2.0 Total Bilirubin 0.50 AST 27 ALT 9 L Alkaline Phosphatase 71 Total Creatine Kinase Troponin I B-Natriuretic Peptide Total Protein 6.5 Albumin 2.0 L Globulin 4.5 H Albumin/Globulin Ratio 0.4 L Triglycerides Vancomycin Trough COVID-19 (RYAN) MRSA (PCR) Blood Type Antibody Screen Crossmatch Microbiology 07/06/19 22:45 Sputum, Induced/Lukens Gram Stain - Final 07/04/19 10:25 Blood Culture (Wb) - Anticubital Right Blood Culture - Preliminary No growth in 48 hours. 07/04/19 10:30 Blood Culture (Wb) - Right Forearm Blood Culture - Preliminary No growth in 48 hours. 07/04/19 10:30 Urine Catheter - Catheter Urine Culture - Final Culture exhibits no growth. Clinical Impression(s) from Imaging Studies Chest CTA 07/04/19 10:14 IMPRESSION: Diffuse groundglass appearance involving the right upper lobe as well as right middle lobe and areas of the right lower lobe with evidence of a bronchiectasis and scarring in the right lower lobe. Mild degree of increased ground glass appearance in the left upper lobe. 1. Metastasis. Electronically Signed: Steve Ghoshmari, at 12:14 EDT , Service support , Chest X-Ray 07/06/19 15:30 IMPRESSION: Findings suggestive of pulmonary edema. The tip of the endotracheal tube is 3.4 cm proximal to the margarito. Nasogastric tube is seen within the body of the stomach. Electronically Signed: Steve Garcia, at 15:53 EDT , Service support , Chest X-Ray 07/07/19 07:01 IMPRESSION: Stable exam. Electronically Signed: Osvaldo Vicente, at 10:20 EDT Tel , Service support , Medical Necessity - Tobacco Use Smoking Status: Former smoker Tobacco Use: Non-smoker Assessment/Plan All Active Problems (Last Reviewed 07/04/19 @ 14:[address] Pawan Gunter MD) Cellulitis (Acute) Viral illness (Acute) Severe sepsis (Acute) History of tonsillectomy and adenoidectomy (Resolved) Aftercare following left ankle joint replacement surgery (Resolved) History of partial mastectomy of both breasts (Resolved) History of breast biopsy (Resolved) Chest pain (Acute) Breast cancer (Resolved) RECOMMENDATIONS: 1. Continue empiric antimicrobials. Antibiotics were once again broadened on July 06, given intubation status. 2. Continue hydroxychloroquine per ID recommendations over concerns for false negative COVID testing. 3. Repeat COVID testing pending. 4. Continue scheduled lasix as tolerated by renal function. 5. Wean FiO2 to maintain oxygen saturations at or above 90%. 6. Continue tube feeds along with appropriate ICU prophylaxis. IMPRESSIONS: 1. Acute hypoxemic respiratory failure Initial clinical concern was for a possible viral pneumonia, given extensive groundglass changes noted on CT chest. In addition, the patient's anemia is likely complicating the clinical picture. She did decompensate from a respiratory perspective on July 05, which led to early preventative intubation in the ICU setting. Although the patient's coronavirus testing was later resulted as negative by the [facility] on July 05, given the patient's clinical state, infectious diseases elected to continue the patient's hydroxychloroquine over concerns that the patient's testing may represent a false negative. Therefore, on July 06 a deep suction sample was obtained and is being sent for COVID retesting. The patient will be continued on current s upportive measures including invasive mechanical ventilatory support, with plans to wean FiO2 to maintain oxygen saturations at or above 90%. Tube feeds will be continued. Scheduled IV lasix will be continued as tolerated by renal function. Cardiac monitoring for chloroquine/hydroxychloroquine for suspected or confirmed COVID-[address] patient on telemetry and obtain baseline twelve-lead EKG. 2. Discontinue all QT prolonging medications if possible. 3. Correct electrolyte abnormalities, specifically maintain potassium greater than 4 and magnesium greater than 2. 4. Obtain EKG 2 hours after first dose. -If predrug QRS duration is less than 120 ms, can proceed with second dose if QTC is less than 520 ms. -If predrug QRS duration is greater than 120 ms, with comanche conduction, can proceed to give second dose if the QTC is less than 570 ms. -For paced QRS complex, QTC monitoring is not indicated. 5. Unless there is a worrisome arrhythmia, the EKG needs to be obtained only at baseline and after the first dose of the medication. 2. Macrocytic anemia The patient did have a purnima hemoglobin level during this hospitalization of 6.9 g/dL, for which she received transfusion of blood products. Stool for occult blood was positive. I would plan to continue to monitor the patient's hemoglobin daily, with plans to transfuse if hemoglobin once again drops below 7 g/dL. Continue PPI therapy as ordered. 3. History of Takotsubo cardiomyopathy/personal history of breast cancer with mets/chronic pain syndrome/GERD Complicates care, management, recovery and prognosis. Continue home medications as indicated. Okay to continue tube feeds. TIME: 37 minutes of critical care time, independent of procedures, was spent addressing the patient's acute hypoxemic respiratory failure, concern for viral pneumonia, anemia, review of all data and collaboration with the care team. [id number]) [phone] [id number] Critical care first hour
--- NOTE | 2019-07-08 07:05 | PCM.PN.HOSP ---
Patient Problems: Active and Suspected Problems (Last Reviewed 07/04/19 @ 14:[address] Pawan Gunter MD) Viral illness (Acute) Severe sepsis (Acute) Reason for Visit: Follow-up acute hypoxic respiratory failure Subjective: Since seen awake on the vent. Patient had significant diuresis on diuretics. Objective: GENERAL: Patient on the vent HEENT: Atraumatic; EYES; Anicteric, Normal Conjunctiva NECK; supple, normal thyroid, RESPIRATORY: Diminished to auscultation CARDIOVASCULAR: Regular S1 S2, GI: soft, normoactive bowel sounds, : No Renal angle tenderness; EXTREMITIES: No edema, no clubbing, MUSCULOSKELETAL: no muscle waisting NEURO: No lateralizing signs SKIN: No Rash PSYCH; unable to assess patient on the vent Vitals/I&O's: Vital Signs Temp Pulse Resp BP Pulse Ox 98.5 F 59 L 13 114/69 93 07/08/19 05:00 07/08/19 07:00 07/08/19 07:00 07/08/19 07:00 07/08/19 07:00 Oxygen Flow Rate (L/min) 12 Oxygen Delivery Method Mechanical Ventilator Weight: 83.1 kg Body Mass Index (BMI) 27.7 Intake and Output for Last 24 Hours 07/06/19 07/07/19 07/08/19 23:59 23:59 23:59 Intake Total 3496.32 / 3625.12 1748.58 / 1877.48 564.75 / 564.75 Output Total 1120 / 2120 4905 / 4905 450 / 450 Balance 2376.32 / 1505.12 -3156.42 / -3027.52 114.75 / 114.75 Microbiology Past 72 Hours 07/06/19 22:45 Sputum, Induced/Lukens Gram Stain - Final 07/04/19 10:25 Blood Culture (Wb) - Anticubital Right Blood Culture - Preliminary No growth in 48 hours. 07/04/19 10:30 Blood Culture (Wb) - Right Forearm Blood Culture - Preliminary No growth in 48 hours. 07/04/19 10:30 Urine Catheter - Catheter Urine Culture - Final Culture exhibits no growth. Laboratory Results 07/04/19 12:30: Blood Type O POSITIVE, Antibody Screen NEGATIVE, Crossmatch See Detail 07/04/19 12:30: Crossmatch See Detail 07/07/19 03:15: Troponin I 0.037 07/07/19 03:15: B-Natriuretic Peptide 241.7 H 07/07/19 08:20: Blood Type Cancelled, Antibody Screen Cancelled, Crossmatch See Detail 07/07/19 09:28: COVID-19 (RYAN) Pending 07/07/19 11:30: Blood Type O POSITIVE, Antibody Screen NEGATIVE, Crossmatch See Detail 07/07/19 22:50: Hgb 10.0 L, Hct 30.0 L 07/08/19 04:00: WBC 3.4 L, RBC 2.94 L, Hgb 10.3 L, Hct 29.8 L, MCV 101.4 H D, MCH 35.0 H, MCHC 34.6 D, RDW Std Deviation 78.0 H, RDW Coeff of Jessica 22.5 H, Plt Count 176, MPV 9.5, Immature Gran % (Auto) 1.200 H, Neut % (Auto) 87.9 H, Lymph % (Auto) 4.1 L, [place] % (Auto) 6.5, Eos % (Auto) 0.3, Baso % (Auto) 0.0, Absolute Neuts (auto) 3.0, Absolute Lymphs (auto) 0.14 L, Nucleated RBC % 1.8, Differential Comment , Diff Path Review May foll, Platelet Estimate ADEQUATE, Polychromasia RARE, Macrocytosis 1+, Crenated Cell 1+ 07/08/19 04:00: Sodium 138, Potassium 4.0, Chloride 102, Carbon Dioxide 29.0, Anion Gap 7, BUN 27 H, Creatinine 0.88, Estim Creat Clear Calc 68.38, Est GFR (MDRD) Af Amer 84, Est GFR (MDRD) Non-Af 69, BUN/Creatinine Ratio 30.8 H, Glucose 105, Calcium 8.1 L, Phosphorus 2.1 L, Magnesium 2.0, Total Bilirubin 0.50, AST 27, ALT 9 L, Alkaline Phosphatase 71, Total Protein 6.5, Albumin 2.0 L, Globulin 4.5 H, Albumin/Globulin Ratio 0.4 L Current Medications Albuterol Sulfate (Ventolin Aerosols) 2.5 mg INHALATION Q2H PRN PRN PRN Reason: Shortness of Breath/Wheezing Last Admin: 07/06/19 11:10 Dose: 2.5 mg Documented by: Chlorhexidine Gluconate () 15 ml PO BID [facility] Last Admin: 07/07/19 21:12 Dose: 15 ml Documented by: Hydroxychloroquine Sulfate 200 mg/ Compound Med 4 ml/Compound Med 4 ml mg GT BID [facility] Stop: 07/10/19 22:01 Last Admin: 07/07/19 21:37 Dose: 8 ml Documented by: Dexamethasone (Decadron) 2 mg GT DAILY [facility] Last Admin: 07/07/19 10:53 Dose: 2 mg Documented by: Enoxaparin Sodium (Lovenox) 40 mg SC DAILY [facility] Last Admin: 07/07/19 10:53 Dose: 40 mg Documented by: Furosemide (Lasix) 40 mg IV BID@1000,1800 [facility] Last Admin: 07/07/19 17:47 Dose: 40 mg Documented by: Gabapentin (Neurontin) 300 mg GT TID [facility] Last Admin: 07/08/19 05:30 Dose: 300 mg Documented by: Fentanyl () 100 mls @ 2.5 mls/hr IV UD [facility]; Protocol Last Titration: 07/08/19 07:00 Dose: 25 mcg/hr, 2.5 mls/hr Documented by: Propofol (Diprivan) 1,000 mg in 100 mls @ 4.986 mls/hr CONT INF .Q12H [facility]; Protocol Last Titration: 07/08/19 07:00 Dose: 0 mcg/kg/min, 0 mls/hr Documented by: Pantoprazole Sodium 40 mg/ (Sodium Chloride) 110 mls @ 330 mls/hr IV Q12 [facility] Last Infusion: 07/07/19 21:36 Dose: Infused Documented by: Piperacillin Sod/Tazobactam (Sod 3.375 gm/ Sodium Chloride) 50 mls @ 12.5 mls/hr IV Q8 [facility] Last Admin: 07/08/19 05:30 Dose: 12.5 mls/hr Documented by: Enteral Nutritional Formula (Vital Af 1.2 Bernard Liquid) 1,000 mls @ 65 mls/hr GT .[id number] [facility] Last Admin: 07/08/19 01:39 Dose: Not Given Documented by: Magnesium Oxide (Mag-Ox 400) 400 mg GT BID [facility] Last Admin: 07/07/19 21:10 Dose: 400 mg Documented by: Sodium Chloride () 10 - 40 ml IV UD PRN PRN Reason: SALINE FLUSH Last Admin: 07/08/19 05:32 Dose: 40 ml Documented by: STROKE Vital Signs/Narrative: Vital Signs Temp Pulse Resp BP Pulse Ox 07/08/19 07:00 59 L 13 114/69 93 07/08/19 06:37 59 L 14 92 07/08/19 06:00 59 L 17 111/67 93 07/08/19 05:00 98.5 F 63 17 119/70 94 07/08/19 04:00 61 14 93/53 L 93 07/08/19 03:14 55 L 07/08/19 03:12 56 L 14 94 Medical Necessity - Tobacco Use Smoking Status: Former smoker Tobacco Use: Non-smoker Assessment/Plan All Active Problems (Last Reviewed 07/04/19 @ 14:[address] Pawan Gunter MD) Cellulitis (Acute) Viral illness (Acute) Severe sepsis (Acute) History of tonsillectomy and adenoidectomy (Resolved) Aftercare following left ankle joint replacement surgery (Resolved) History of partial mastectomy of both breasts (Resolved) History of breast biopsy (Resolved) Chest pain (Acute) Breast cancer (Resolved) Patient is a 63-year-old lady presented with progressive shortness of breath fever and chills 1. Acute viral syndrome ?CT of the chest obtained on admission demonstrated Diffuse groundglass appearance involving the right upper lobe as well as right middle lobe and areas of the right lower lobe with evidence of a bronchiectasis and scarring in the right lower lobe. Mild degree of increased ground glass appearance in the left upper lobe. This is highly suspicious for viral pneumonia. Patient placed in isolation while was tested for COVID 19 is being pursued ?07/05/2019; COVID 19 test results still pending. Patient was seen in consultation by Dr. Leggett with infectious disease Case discussed with him. ?07/06/2019: Patient exhibiting some clinical improvement. COVID 19 test still pending. ?07/07/2019 ; Patient was intubated on 07/06/2019 following respiratory decompensation. Case was discussed with both pulmonary medicine as well as ID patient initiated on hydroxychloroquine. Her COVID 19 test however came back negative. There is still high suspicion for possible COVID 19 infection patient will therefore remain on current treatment 2. Acute hypoxic respiratory failure ?Patient was intubated on 07/06/2019 following respiratory decompensation. Case was discussed with both pulmonary medicine as well as ID patient initiated on hydroxychloroquine. Plans for patient to undergo diuresis and if there is no improvement in her respiratory status patient undergo repeat testing for COVID 19 -07/08/2019: Patient remains on the vent vent management deferred to pulmonary medicine 3. Suspected acute congestive heart failure ?Patient currently being diuresed echo ordered. ?07/08/2019. Patient had significant diuresis with Lasix. Echo obtained the day prior demonstrated EF of 50% with mild global hypokinesis of the left ventricle 4. Sepsis ?Secondary to suspected viral syndrome with patient lactic acid being greater than 2.1 cultures were sent started on broad-spectrum antibiotic therapy with vancomycin and Zosyn and resuscitated with IV fluid ?07/05/2019: Cultures still pending -07/08/2019 cultures still so far negative to date. 5. History of breast cancer ?With mets to the bone patient is currently on Ibrance which is being held. 6. Anemia ?Secondary to anemia of malignancy subsequent therapy monitoring H&H with plans to transfuse if hemoglobin falls below 7 or becomes symptomatic ?07/05/2019 and order was given for patient to be transfused with 1 unit PRBC with hemoglobin having dropped to 6.7. Posttransfusion H&H ordered ?07/06/2019 hemoglobin up to 7.5. -07/07/2019: Hemoglobin 6.9; patient to receive additional blood transfusion ?07/08/2019: Hemoglobin up to 10.3. 7. History of Takotsubo cardiomyopathy ?Currently stable 8. Hyponatremia ?Monitoring daily BMPs ?07/06/2019; sodium levels back within normal limits 9. Hypomagnesemia corrected per protocol 10. Hypocalcemia ?Initiated calcium supplementation 11. DVT [facility] [id number] Subs Hosp L2
--- NOTE | 2019-07-08 07:32 | NURSING ---
pts three rings placed in denture cup in ICU1 lower med drawer.
[2019-07-08] MEDS: Chlorhexidine 15 ML PO ×2 (09:38→21:28)
[2019-07-08] MEDS: Enoxaparin 40 MG/0.4 ML Syringe SC (09:39)
[2019-07-08] MEDS: Magnesium Oxide 400 MG Tablet GT ×2 (09:39→21:26)
[2019-07-08] MEDS: dexAMETHasone 4 MG Tablet 2 MG GT (09:39)
[2019-07-08] MEDS: Furosemide 40 MG/4 ML Vial IV ×2 (09:39→17:46)
[2019-07-08] MEDS: Acetaminophen 650 MG/20 ML UDC NG (13:05)
[2019-07-08] MEDS: Vital AF 1.2 Cal Liquid 1,000 ML 65 ML GT (17:44)
[2019-07-08] MEDS: fentaNYL drip 100 ML 7.5 MCG IV (17:45)
[2019-07-09] VITALS (31 sets, daily range): BP systolic 96–125; BP diastolic 65–84; PULSE 62–79; RESP 10–20; TEMP 36.5–37.1; O2SAT 92–100
--- NOTE | 2019-07-09 00:20 | NURSING ---
pt SHAREE appeared to be slightly edematous, SHAREE PICC purple lumen flushed with positive blood return, red lumen flushed with no blood return, arm measured at 34 cm above site which is the same as insertion, will continue to monitor, IV fluids running in purple lumen at this time, will consult with MD regarding Activase for red lumen.
[2019-07-09 04:38] LABS: Absolute Lymphocyte Count 0.31 X10^3/uL (0.83-4.51); Absolute Neutrophil Count 2.5 X10^3/uL (2.0-7.7); Basophil# 0.01 X10^3/uL; Basophil% 0.3 % (0-1); Differential Indicated SCAN CRITERIA MET; Eosinophil# 0.07 X10^3/uL; Eosinophils% 2.2 % (0-5); Hematocrit 34.8 % (37-47); Hemoglobin 11.5 g/dL (12.0-15.0); Lymphocyte # 0.31 X10^3/ul (4.0); Lymphocyte % 9.8 % (19-41); Mean Corpuscular Volume 99.7 fL (81-99); Mean Platelet Vol. 9.5 fl (6.2-12.0); Monocyte# 0.26 X10^3/uL; Monocyte% 8.2 % (0-10); NRBC Flagged by Analyzer 1.6 % (0-5); Neutrophil # 2.47 X10^3/uL (2.7-7.7); Neutrophil % 77.9 % (47-70); POSITIVE DIFFERENTIAL YES; POSITIVE MORPHOLOGY YES; Platelet Count 202 K/mm3 (150-450); RBC Distribution Width CV 21.2 % (11.6-14.6); RBC Distribution Width SD 74.8 fl (35.1-43.9); Red Blood Count 3.49 M/mm3 (4.2-5.4); White Blood Count 3.2 K/mm3 (4.4-11.0)
--- NOTE | 2019-07-09 04:55 | NURSING ---
SHAREE PICC end connector caps changed, repositioned arm, changed positions, ETT suctioned to promote coughing, able to flush both purple and red lumen with no blood return, Dr. Hutchison notified, Cathflo Activase ordered.
[2019-07-09 05:03] LABS: Differential Comment SCANNED
[2019-07-09 05:04] LABS: Ovalocyte RARE; Stomatocyte RARE
[2019-07-09 05:21] LABS: ALB/GLOB Ratio 0.5 RATIO (0.9-2.4); AST(SGOT) 24 U/L (15-37); Alanine Aminotransfer ALT/SGPT 10 U/L (13-56); Albumin, Serum 2.2 g/dL (3.2-5.0); Alkaline Phosphatase 71 U/L (45-117); Anion Gap 9 (5-15); BUN 36 mg/dL (7-18); BUN/Creat Ratio 41.4 RATIO (10-20); Calcium,Total 8.4 mg/dL (8.5-10.1); Chloride 99 mmol/L (98-107); Creatinine, Serum 0.87 mg/dL (0.55-1.02); EST Glomerular Filtration Rate 70 mL/min (>60); Est Glom Filt Rate - Afr Amer 84 mL/min (>60); Estimated Creatinine Clearance 69.17 ml/min; Globulin 4.6 g/dL (2.2-4.2); Glucose 93 mg/dL (74-106); Magnesium 2.1 mg/dL (1.6-2.6); Phosphorus 2.2 mg/dL (2.5-4.9); Potassium 3.4 mmol/L (3.5-5.1); Protein, Total 6.8 g/dL (6.4-8.2); Sodium Level 137 mmol/L (136-145)
[2019-07-09] MEDS: Gabapentin 300 MG Capsule GT ×2 (05:30→13:46)
[2019-07-09] MEDS: Alteplase 2 MG/2 ML Vial IV ×2 (05:31)
[2019-07-09] MEDS: TITRATION PARAMETER CHANGE 1 EACH IV (05:55)
--- NOTE | 2019-07-09 05:55 | EKG12_ITS ---
Test Reason : AM EKG Blood Pressure : / mmHG Vent. Rate : 058 BPM Atrial Rate : 058 BPM P-R Int : 148 ms QRS Dur : 084 ms QT Int : 532 ms P-R-T Axes : 011 002 082 degrees QTc Int : 522 ms Sinus bradycardia Prolonged QT Abnormal ECG When compared with ECG of 07-JUL-2019 03:52, MANUAL COMPARISON REQUIRED, DATA IS UNCONFIRMED Confirmed by PADMINI SEALS, DOMINGA ([id number]), industrial editor RADHA ELIAS ([id number]) on 07/10/2019 9:27:10 AM Referred By: TWAN Confirmed By:DOMINGA WASHINGTON MD
--- NOTE | 2019-07-09 06:05 | NURSING ---
per policy, attempted to withdraw blood from purple and red lumen, unsuccessful, wrapped with gauze and DO NOT USE tape placed around PICC.
--- NOTE | 2019-07-09 06:58 | PN_ITS ---
Subjective: Patient did okay yesterday. Patient was on a trial for most of the day, but developed fatigue in the evening and had to be placed on support. Patient did have a spontaneous breathing trial this morning. There was difficulty getting an ABG, but patient tolerated the procedure well and denied any dyspnea at the end. Patient was maintaining appropriate saturations at 35% FiO2. Respiratory and nursing did report thick secretions requiring lavage for removal. Patient has had decreased blood flow from her PICC line and has had TPA dwelled. General: Alert, Cooperative, No apparent distress, Well developed, Well nourished, - - Appeared comfortable on spontaneous breathing trial. No accessory muscle use noted. HEENT: Atraumatic, PERRLA, EOMI, Normocephalic, - - No scleral icterus or injection noted Oral: Moist Mucosa, No Gingival or Mucosal Lesions/ Ulcerations Neck: Supple, No JVD, No Nodes, Trachea Midline Lungs: No wheeze, No rales, Diminished, Rhonchi - Right greater than left, - - Symmetric expansion Cardiovascular: Regular rate, Regular Rhythm, Normal S1, Normal S2, No murmurs, No rub noted, No Gallop Abdomen: Bowel Sounds Present, Soft, Non Tender, Non-Distended Extremities: No clubbing, No cyanosis, No edema, Capillary Refill Less than 3 Seconds Skin: No rashes, No breakdown Musculoskeletal: No Tenderness to Palpation of Joints or Extremities Lymphatic: No Cervical, Supraclavicular, or Inguinal Adenopathy Neurological: Cranial nerves II-XII grossly intact, Neuro grossly intact, Motor Exam 5/5 strength throughout Psych/Mental Status: Normal Affect, Appropriate Vital Signs Temp Pulse Resp BP Pulse Ox 36.7 C 65 14 107/66 94 07/09/19 04:00 07/09/19 06:00 07/09/19 06:00 07/09/19 06:00 07/09/19 06:00 Oxygen Flow Rate (L/min) 12 Oxygen Delivery Method Mechanical Ventilator Weight: 82.4 kg Body Mass Index (BMI) 27.7 Intake and Output for Last 24 Hours 07/07/19 07/08/19 07/09/19 23:59 23:59 23:59 Intake Total 1748.58 / 1877.48 2803.18 / 2923.18 799.33 / 799.33 Output Total 4905 / 4905 4225 / 4225 300 / 300 Balance -3156.42 / -3027.52 -1421.82 / -1301.82 499.33 / 499.33 Labs (Last 48 Hours) 07/04/19 07/04/19 07/07/19 12:30 12:30 03:15 WBC RBC Hgb Hct MCV MCH MCHC RDW Std Deviation RDW Coeff of Jessica Plt Count MPV Immature Gran % (Auto) Neut % (Auto) Lymph % (Auto) [place] % (Auto) Eos % (Auto) Baso % (Auto) Absolute Neuts (auto) Absolute Lymphs (auto) Nucleated RBC % Differential Comment Diff Path Review Platelet Estimate Polychromasia Macrocytosis Ovalocytes Stomatocytes Crenated Cell Sodium Potassium Chloride Carbon Dioxide Anion Gap BUN Creatinine Estim Creat Clear Calc Est GFR (MDRD) Af Amer Est GFR (MDRD) Non-Af BUN/Creatinine Ratio Glucose Calcium Phosphorus Magnesium Total Bilirubin AST ALT Alkaline Phosphatase Troponin I 0.037 B-Natriuretic Peptide Total Protein Albumin Globulin Albumin/Globulin Ratio COVID-19 (RYAN) Blood Type O POSITIVE Antibody Screen NEGATIVE Crossmatch See Detail See Detail 07/07/19 07/07/19 07/07/19 03:15 08:20 09:28 WBC RBC Hgb Hct MCV MCH MCHC RDW Std Deviation RDW Coeff of Jessica Plt Count MPV Immature Gran % (Auto) Neut % (Auto) Lymph % (Auto) [place] % (Auto) Eos % (Auto) Baso % (Auto) Absolute Neuts (auto) Absolute Lymphs (auto) Nucleated RBC % Differential Comment Diff Path Review Platelet Estimate Polychromasia Macrocytosis Ovalocytes Stomatocytes Crenated Cell Sodium Potassium Chloride Carbon Dioxide Anion Gap BUN Creatinine Estim Creat Clear Calc Est GFR (MDRD) Af Amer Est GFR (MDRD) Non-Af BUN/Creatinine Ratio Glucose Calcium Phosphorus Magnesium Total Bilirubin AST ALT Alkaline Phosphatase Troponin I B-Natriuretic Peptide 241.7 H Total Protein Albumin Globulin Albumin/Globulin Ratio COVID-19 (RYAN) Pending Blood Type Cancelled Antibody Screen Cancelled Crossmatch See Detail 07/07/19 07/07/19 07/08/19 11:30 22:50 04:00 WBC 3.4 L RBC 2.94 L Hgb 10.0 L 10.3 L Hct 30.0 L 29.8 L MCV 101.4 H D MCH 35.0 H MCHC 34.6 D RDW Std Deviation 78.0 H RDW Coeff of Jessica 22.5 H Plt Count 176 MPV 9.5 Immature Gran % (Auto) 1.200 H Neut % (Auto) 87.9 H Lymph % (Auto) 4.1 L [place] % (Auto) 6.5 Eos % (Auto) 0.3 Baso % (Auto) 0.0 Absolute Neuts (auto) 3.0 Absolute Lymphs (auto) 0.14 L Nucleated RBC % 1.8 Differential Comment Diff Path Review May foll Platelet Estimate ADEQUATE Polychromasia RARE Macrocytosis 1+ Ovalocytes Stomatocytes Crenated Cell 1+ Sodium Potassium Chloride Carbon Dioxide Anion Gap BUN Creatinine Estim Creat Clear Calc Est GFR (MDRD) Af Amer Est GFR (MDRD) Non-Af BUN/Creatinine Ratio Glucose Calcium Phosphorus Magnesium Total Bilirubin AST ALT Alkaline Phosphatase Troponin I B-Natriuretic Peptide Total Protein Albumin Globulin Albumin/Globulin Ratio COVID-19 (RYAN) Blood Type O POSITIVE Antibody Screen NEGATIVE Crossmatch See Detail 07/08/19 07/09/19 07/09/19 04:00 04:30 04:30 WBC 3.2 L RBC 3.49 L Hgb 11.5 L Hct 34.8 L MCV 99.7 H MCH 33.0 H MCHC 33.0 RDW Std Deviation 74.8 H RDW Coeff of Jessica 21.2 H Plt Count 202 MPV 9.5 Immature Gran % (Auto) 1.600 H Neut % (Auto) 77.9 H Lymph % (Auto) 9.8 L [place] % (Auto) 8.2 Eos % (Auto) 2.2 Baso % (Auto) 0.3 Absolute Neuts (auto) 2.5 Absolute Lymphs (auto) 0.31 L Nucleated RBC % 1.6 Differential Comment SCANNED Diff Path Review May foll Platelet Estimate Polychromasia Macrocytosis Ovalocytes RARE Stomatocytes RARE Crenated Cell Sodium 138 137 Potassium 4.0 3.4 L Chloride 102 99 Carbon Dioxide 29.0 29.0 Anion Gap 7 9 BUN 27 H 36 H Creatinine 0.88 0.87 Estim Creat Clear Calc 68.38 69.17 Est GFR (MDRD) Af Amer 84 84 Est GFR (MDRD) Non-Af 69 70 BUN/Creatinine Ratio 30.8 H 41.4 H Glucose 105 93 Calcium 8.1 L 8.4 L Phosphorus 2.1 L 2.2 L Magnesium 2.0 2.1 Total Bilirubin 0.50 0.50 AST 27 24 ALT 9 L 10 L Alkaline Phosphatase 71 71 Troponin I B-Natriuretic Peptide Total Protein 6.5 6.8 Albumin 2.0 L 2.2 L Globulin 4.5 H 4.6 H Albumin/Globulin Ratio 0.4 L 0.5 L COVID-19 (RYAN) Blood Type Antibody Screen Crossmatch Microbiology 07/07/19 09:28 Wash - Bronchial Wash Gram Stain - Final 07/07/19 09:28 Wash - Bronchial Wash Respiratory Culture - Preliminary Culture exhibits no growth. 07/06/19 22:45 Sputum, Induced/Lukens Gram Stain - Final 07/06/19 22:45 Sputum, Induced/Lukens Respiratory Culture - Preliminary Culture exhibits no growth. Medical Necessity - Tobacco Use Smoking Status: Former smoker Tobacco Use: Non-smoker Assessment/Plan All Active Problems (Last Reviewed 07/04/19 @ 14:[address] Pawan Gunter MD) Cellulitis (Acute) Viral illness (Acute) Severe sepsis (Acute) History of tonsillectomy and adenoidectomy (Resolved) Aftercare following left ankle joint replacement surgery (Resolved) History of partial mastectomy of both breasts (Resolved) History of breast biopsy (Resolved) Chest pain (Acute) Breast cancer (Resolved) RECOMMENDATIONS: 1. Continue empiric antimicrobials. Antibiotics were once again broadened on July 06, given intubation status. Defer to ID 2. Continue hydroxychloroquine to complete 5-day course per ID recommendations over concerns for false negative COVID testing. 3. Repeat COVID testing pending. 4. Continue scheduled lasix as tolerated by renal function. Potassium repletion ordered 5. Wean FiO2 to maintain oxygen saturations at or above 90%. 6. Continue tube feeds along with appropriate ICU prophylaxis. IMPRESSIONS: 1. Acute hypoxemic respiratory failure secondary to suspected coronavirus Initial findings were significantly concerning for viral etiology. Patient did have a coronavirus sent initially, but this was read as normal. Patient did have a deep suction sample that is pending approval for COVID testing. If refused by [facility], anticipate sending to [facility]. Patient was able to be extubated today. Continue respiratory/droplet precautions. Tube feeds will be held. Wean oxygen as tolerated. Anticipate continuing Lasix therapy. Will initiate patient on fentanyl as needed, but may transition to baseline methadone once patient is done with Plaquenil dosage regimen. QT is been slightly prolonged at over 500. Cardiac monitoring for chloroquine/hydroxychloroquine for suspected or confirmed COVID-[address] Place patient on telemetry and obtain baseline twelve-lead EKG. 2. Discontinue all QT prolonging medications if possible. 3. Correct electrolyte abnormalities, specifically maintain potassium greater than 4 and magnesium greater than 2. 4. Obtain EKG 2 hours after first dose. -If predrug QRS duration is less than 120 ms, can proceed with second dose if QTC is less than 520 ms. -If predrug QRS duration is greater than 120 ms, with [place] conduction, can proceed to give second dose if the QTC is less than 570 ms. -For paced QRS complex, QTC monitoring is not indicated. 5. Unless there is a worrisome arrhythmia, the EKG needs to be obtained only at baseline and after the first dose of the medication. 2. Macrocytic anemia The patient did have a purnima hemoglobin level during this hospitalization of 6.9 g/dL, for which she received transfusion of blood products. Stool for occult blood was positive. I would plan to continue to monitor the patient's hemoglobin daily, with plans to transfuse if hemoglobin once again drops below 7 g/dL. No indication for transfusion at this time. Continue PPI therapy as ordered. 3. History of Takotsubo cardiomyopathy/personal history of breast cancer with mets/chronic pain syndrome/GERD Complicates care, management, recovery and prognosis. Continue home medications as indicated. Bedside swallow evaluation when appropriate TIME: 33 minutes of critical care time, independent of procedures, was spent addressing the patient's acute hypoxemic respiratory failure, concern for viral pneumonia, anemia, review of all data and collaboration with the care team. (5:45 AM to 6:45 AM) [id number]: [id number] Critical care first hour
--- NOTE | 2019-07-09 07:39 | NURSING ---
patient extubated at 0642 by respiratory therapist, placed on 3L NC, restraints, propofol, fentanyl, and tube feed D/C'd, patient tolerated well.
--- NOTE | 2019-07-09 08:40 | PN_ITS ---
Patient Problems: Active and Suspected Problems (Last Reviewed 07/04/19 @ 14:[address] Pawan Gunter MD) Viral illness (Acute) Severe sepsis (Acute) Subjective: Chief complaint: Follow-up after admission for acute viral pneumonia, suspected coronavirus, acute hypoxic respiratory failure. Patient seen and examined. She was extubated this morning. She mentioned that her breathing is getting better. Denied cough or sputum production. Reported chronic back pain. Denied chest pain or palpitation. Denied abdominal pain, nausea or vomiting. She is afebrile, blood pressure and heart rate are stable, pulse ox is 92% on 3 L. - Physical Exam Vitals/I&O's: Vital Signs Temp Pulse Resp BP Pulse Ox 98.1 F 66 19 H 100/65 92 07/09/19 04:00 07/09/19 08:00 07/09/19 08:00 07/09/19 08:00 07/09/19 08:00 Oxygen Flow Rate (L/min) 3 Oxygen Delivery Method Nasal Cannula Weight: 181 lb 10.574 oz Body Mass Index (BMI) 27.7 Intake and Output for Last 24 Hours 07/07/19 07/08/19 07/09/19 23:59 23:59 23:59 Intake Total 1748.58 / 1877.48 2803.18 / 2923.18 919.33 / 919.33 Output Total 4905 / 4905 4225 / 4225 300 / 300 Balance -3156.42 / -3027.52 -1421.82 / -1301.82 619.33 / 619.33 General: Alert, Oriented x3, Cooperative, No apparent distress HEENT: Atraumatic, PERRLA, EOMI, Normocephalic Oral: Moist Mucosa, No Gingival or Mucosal Lesions/ Ulcerations Neck: Supple, No JVD, Negative Carotid Bruits, Trachea Midline, Thyroid Normal Size and Texture Lungs: Clear to auscultation, No wheeze, No rales, Diminished, Rhonchi Cardiovascular: Regular rate, Regular Rhythm, Normal S1, Normal S2, PMI Normal Abdomen: Bowel Sounds Present, Soft, Non Tender, Non-Distended, No Hepato- splenomegaly Extremities: No clubbing, No cyanosis, No edema Skin: No rashes, No breakdown Lymphatic: No Cervical, Supraclavicular, or Inguinal Adenopathy Neurological: Cranial nerves II-XII grossly intact, Neuro grossly intact Psych/Mental Status: Normal Affect, Appropriate Microbiology Past 72 Hours 07/07/19 09:28 Wash - Bronchial Wash Gram Stain - Final 07/07/19 09:28 Wash - Bronchial Wash Respiratory Culture - Preliminary Culture exhibits no growth. 07/06/19 22:45 Sputum, Induced/Lukens Gram Stain - Final 07/06/19 22:45 Sputum, Induced/Lukens Respiratory Culture - Preliminary Culture exhibits no growth. 07/04/19 10:25 Blood Culture (Wb) - Anticubital Right Blood Culture - Preliminary No growth in 48 hours. 07/04/19 10:30 Blood Culture (Wb) - Right Forearm Blood Culture - Preliminary No growth in 48 hours. 07/04/19 10:30 Urine Catheter - Catheter Urine Culture - Final Culture exhibits no growth. Laboratory Results 07/09/19 04:30: WBC 3.2 L, RBC 3.49 L, Hgb 11.5 L, Hct 34.8 L, MCV 99.7 H, MCH 33.0 H, MCHC 33.0, RDW Std Deviation 74.8 H, RDW Coeff of Jessica 21.2 H, Plt Count 202, MPV 9.5, Immature Gran % (Auto) 1.600 H, Neut % (Auto) 77.9 H, Lymph % (Auto) 9.8 L, [place] % (Auto) 8.2, Eos % (Auto) 2.2, Baso % (Auto) 0.3, Absolute Neuts (auto) 2.5, Absolute Lymphs (auto) 0.31 L, Nucleated RBC % 1.6, Differential Comment SCANNED, Diff Path Review May foll, Ovalocytes RARE, Stomatocytes RARE 07/09/19 04:30: Sodium 137, Potassium 3.4 L, Chloride 99, Carbon Dioxide 29.0, Anion Gap 9, BUN 36 H, Creatinine 0.87, Estim Creat Clear Calc 69.17, Est GFR (MDRD) Af Amer 84, Est GFR (MDRD) Non-Af 70, BUN/Creatinine Ratio 41.4 H, Glucose 93, Calcium 8.4 L, Phosphorus 2.2 L, Magnesium 2.1, Total Bilirubin 0.50, AST 24, ALT 10 L, Alkaline Phosphatase 71, Total Protein 6.8, Albumin 2.2 L, Globulin 4.6 H, Albumin/Globulin Ratio 0.5 L Current Medications Acetaminophen (Tylenol Liquid) 650 mg NG Q4H PRN PRN PRN Reason: HEADACHE/FEVER (T>102.5) Last Admin: 07/08/19 13:05 Dose: 650 mg Documented by: Albuterol Sulfate (Ventolin Aerosols) 2.5 mg INHALATION Q2H PRN PRN PRN Reason: Shortness of Breath/Wheezing Last Admin: 07/06/19 11:10 Dose: 2.5 mg Documented by: Chlorhexidine Gluconate () 15 ml PO BID [facility] Last Admin: 07/08/19 21:28 Dose: 15 ml Documented by: Hydroxychloroquine Sulfate 200 mg/ Compound Med 4 ml/Compound Med 4 ml mg GT BID [facility] Stop: 07/10/19 22:01 Last Admin: 07/08/19 21:28 Dose: 8 ml Documented by: Dexamethasone (Decadron) 2 mg GT DAILY [facility] Last Admin: 07/08/19 09:39 Dose: 2 mg Documented by: Enoxaparin Sodium (Lovenox) 40 mg SC DAILY [facility] Last Admin: 07/08/19 09:39 Dose: 40 mg Documented by: Fentanyl Citrate (Sublimaze (100mcg Ampule)) 50 mcg IV Q2H PRN PRN PRN Reason: Pain Score 1-10/10 Furosemide (Lasix) 40 mg IV BID@1000,1800 [facility] Last Admin: 07/08/19 17:46 Dose: 40 mg Documented by: Gabapentin (Neurontin) 300 mg GT TID [facility] Last Admin: 07/09/19 05:30 Dose: 300 mg Documented by: Pantoprazole Sodium 40 mg/ (Sodium Chloride) 110 mls @ 330 mls/hr IV Q12 [facility] Last Infusion: 07/08/19 21:56 Dose: Infused Documented by: Piperacillin Sod/Tazobactam (Sod 3.375 gm/ Sodium Chloride) 50 mls @ 12.5 mls/hr IV Q8 [facility] Last Admin: 07/09/19 05:39 Dose: 12.5 mls/hr Documented by: Potassium Chloride 40 meq/ (Sodium Chloride) 120 mls @ 100 mls/hr IV BOLUS X1 ONE Stop: 07/09/19 09:11 Last Admin: 07/09/19 08:16 Dose: 100 mls/hr Documented by: Magnesium Oxide (Mag-Ox 400) 400 mg GT BID [facility] Last Admin: 07/08/19 21:26 Dose: 400 mg Documented by: Nystatin (Mycostatin) 1 applic TOPICAL BID [facility]; Protocol Sodium Chloride () 10 - 40 ml IV UD PRN PRN Reason: SALINE FLUSH Last Admin: 07/08/19 21:31 Dose: 40 ml Documented by: Medical Necessity - Tobacco Use Smoking Status: Former smoker Tobacco Use: Non-smoker Assessment/Plan All Active Problems (Last Reviewed 07/04/19 @ 14:[address] Pawan Gunter MD) Viral illness (Acute) Severe sepsis (Acute) This is a 63 years old female patient presented to the emergency room because of shortness of breath, found to have acute probably viral pneumonia with suspected COVID-19 infection, complicated by acute hypoxic respiratory failure status post extubation and sepsis and also found to have acute on chronic anemia and probable acute combined CHF. #1 acute probably viral pneumonia/sepsis/suspected COVID-19 fraction: She is on IV Zosyn. She is on hydroxychloroquine for suspected COVID-19 infection. She has been afebrile, blood pressure and heart rate are stable, pulse ox is 95% on 3 L. Respiratory panel for viruses were negative. COVID-19 testing is pending. Pneumococcal and Legionella antigen were negative. Blood and urine cultures showed no growth. Sputum culture revealed no growth, final is pending. Bronchial wash revealed presumptive Majo albicans. Patient was extubated today. Plan to continue same treatment. #2 acute hypoxic respiratory failure: Status post extubation today. At this time, pulse ox is been attained at 95% on 3 L. Plan to continue IV antibiotics and bronchodilators. Wean off oxygen as tolerated. #3 acute on chronic anemia: Attributed to history of cancer and being on chemotherapy. Also, stool for occult blood was positive. She is on PPI. No evidence of active bleeding this time. Today's hemoglobin is 11.5 g/dL, improved. Plan to monitor. 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 She does have good urine output. 2D echocardiogram revealed dilated left ventricle, ejection fraction 50%, severely enlarged left atrium, RVSP 58 consistent with moderate pulmonary hypertension. Kidney function remained stable. Plan to continue IV diuresis. #5 history of metastatic breast cancer: Status post surgery and chemotherapy. #6 GERD: Continue PPI. #7 DVT prophylaxis: Subcu Lovenox. This note was generated with [employer] dictation software. It may contain incorrect words, spelling, and punctuation that were not noted in checking the note before signing. Inpatient E&M: 64177 Subs Hosp L2
[2019-07-09] MEDS: fentaNYL 100 MCG/2 ML Ampul 50 MCG IV ×6 (09:33→23:37)
[2019-07-09] MEDS: Furosemide 40 MG/4 ML Vial IV ×2 (09:35→16:44)
[2019-07-09] MEDS: Enoxaparin 40 MG/0.4 ML Syringe SC (09:36)
[2019-07-09] MEDS: dexAMETHasone 4 MG Tablet 2 MG GT (09:36)
[2019-07-09] MEDS: Magnesium Oxide 400 MG Tablet GT (09:37)
[2019-07-09] MEDS: Nystatin Ointment 1 APPLIC TOPICAL ×2 (09:37→21:00)
[2019-07-09] MEDS: Pantoprazole Sodium 40 MG Tablet PO ×2 (09:38→20:55)
--- NOTE | 2019-07-09 09:47 | CASEMGMT ---
Addendum entered by Aleyda Yang 07/09/19 14:35: LORETTA received call from Chastity at [facility] asking for update. Chastity provided direct number for Palliative Care Unit [phone]. LORETTA placed a call to [facility] and updated staff that pt is still at [facility]. Original Note: Social Work Note Pt not medically cleared for discharge. LORETTA placed a call to Linda KEY at [facility] and updated her. Linda states she has been in contact with pt's RN's over the weekend and is aware that pt was transferred to ICU and was intubated. LORETTA updated Linda that pt is not medically cleared for discharge today. LORETTA faxed updated clinicals to [facility]. Plan: Return to [facility] once medically cleared. Monitor for O2 at discharge. Aleyda Yang WANT AD RECEIVER, REGULATORY AFFAIRS ASSOCIATE
--- NOTE | 2019-07-09 09:59 | CASEMGMT ---
Social Work Note Per event security officer questions, pt has completed HCPOA and LW documents and provided copies to [facility]. SW reviewed chart, SW unable to find documents. SW asked RN at [facility] to fax HCPOA and LW to [facility] if they have copies on file. Aleyda Yang DIET TECH, APPLICATION ARCHITECT MANAGER
[2019-07-09 11:46] LABS: Pathologist Review Reviewed
[2019-07-09 11:48] LABS: Pathologist Review Reviewed
[2019-07-09 11:49] LABS: Pathologist Review Reviewed
--- NOTE | 2019-07-09 12:25 | PCM.PN.ID ---
Patient Problems: Active and Suspected Problems (Last Reviewed 07/04/19 @ 14:[address] Pawan Gunter MD) Viral illness (Acute) Severe sepsis (Acute) Subjective: Extubated this AM. No fever, feeling better. - Physical Exam Vitals/I&O's: Vital Signs Temp Pulse Resp BP Pulse Ox 98.8 F 76 19 H 115/81 H 95 07/09/19 12:00 07/09/19 12:00 07/09/19 12:00 07/09/19 12:00 07/09/19 12:00 Oxygen Flow Rate (L/min) 3 Oxygen Delivery Method Nasal Cannula Weight: 82.4 kg Body Mass Index (BMI) 27.7 Intake and Output for Last 24 Hours 07/07/19 07/08/19 07/09/19 23:59 23:59 23:59 Intake Total 1748.58 / 1877.48 2803.18 / 2923.18 1219.33 / 1219.33 Output Total 4905 / 4905 4225 / 4225 1100 / 1100 Balance -3156.42 / -3027.52 -1421.82 / -1301.82 119.33 / 119.33 General: Alert, Cooperative, No apparent distress Lungs: Clear to auscultation Cardiovascular: Regular rate, Regular Rhythm Abdomen: Soft, Non Tender, Non-Distended Skin: No rashes Microbiology Past 72 Hours 07/04/19 10:30 Blood Culture (Wb) - Right Forearm Blood Culture - Final No growth in 5 days. 07/04/19 10:25 Blood Culture (Wb) - Anticubital Right Blood Culture - Final No growth in 5 days. 07/07/19 09:28 Wash - Bronchial Wash Gram Stain - Final 07/07/19 09:28 Wash - Bronchial Wash Respiratory Culture - Final Presumptive C albicans 07/06/19 22:45 Sputum, Induced/Lukens Gram Stain - Final 07/06/19 22:45 Sputum, Induced/Lukens Respiratory Culture - Final Presumptive C albicans 07/04/19 10:30 Urine Catheter - Catheter Urine Culture - Final Culture exhibits no growth. Laboratory Results 07/07/19 03:15: Diff Path Review Reviewed 07/07/19 09:28: COVID-19 (RYAN) Pending 07/08/19 04:00: Diff Path Review Reviewed 07/09/19 04:30: WBC 3.2 L, RBC 3.49 L, Hgb 11.5 L, Hct 34.8 L, MCV 99.7 H, MCH 33.0 H, MCHC 33.0, RDW Std Deviation 74.8 H, RDW Coeff of Jessica 21.2 H, Plt Count 202, MPV 9.5, Immature Gran % (Auto) 1.600 H, Neut % (Auto) 77.9 H, Lymph % (Auto) 9.8 L, [place] % (Auto) 8.2, Eos % (Auto) 2.2, Baso % (Auto) 0.3, Absolute Neuts (auto) 2.5, Absolute Lymphs (auto) 0.31 L, Nucleated RBC % 1.6, Differential Comment SCANNED, Diff Path Review Reviewed, Ovalocytes RARE, Stomatocytes RARE 07/09/19 04:30: Sodium 137, Potassium 3.4 L, Chloride 99, Carbon Dioxide 29.0, Anion Gap 9, BUN 36 H, Creatinine 0.87, Estim Creat Clear Calc 69.17, Est GFR (MDRD) Af Amer 84, Est GFR (MDRD) Non-Af 70, BUN/Creatinine Ratio 41.4 H, Glucose 93, Calcium 8.4 L, Phosphorus 2.2 L, Magnesium 2.1, Total Bilirubin 0.50, AST 24, ALT 10 L, Alkaline Phosphatase 71, Total Protein 6.8, Albumin 2.2 L, Globulin 4.6 H, Albumin/Globulin Ratio 0.5 L Current Medications Acetaminophen (Tylenol Liquid) 650 mg NG Q4H PRN PRN PRN Reason: HEADACHE/FEVER (T>102.5) Last Admin: 07/08/19 13:05 Dose: 650 mg Documented by: Albuterol Sulfate (Ventolin Aerosols) 2.5 mg INHALATION Q2H PRN PRN PRN Reason: Shortness of Breath/Wheezing Last Admin: 07/06/19 11:10 Dose: 2.5 mg Documented by: Hydroxychloroquine Sulfate 200 mg/ Compound Med 4 ml/Compound Med 4 ml mg GT BID [facility] Stop: 07/10/19 22:01 Last Admin: 07/09/19 09:37 Dose: 8 ml Documented by: Dexamethasone (Decadron) 2 mg GT DAILY [facility] Last Admin: 07/09/19 09:36 Dose: 2 mg Documented by: Enoxaparin Sodium (Lovenox) 40 mg SC DAILY [facility] Last Admin: 07/09/19 09:36 Dose: 40 mg Documented by: Fentanyl Citrate (Sublimaze (100mcg Ampule)) 50 mcg IV Q2H PRN PRN PRN Reason: Pain Score 1-10/10 Last Admin: 07/09/19 11:53 Dose: 50 mcg Documented by: Furosemide (Lasix) 40 mg IV BID@1000,1800 [facility] Last Admin: 07/09/19 09:35 Dose: 40 mg Documented by: Gabapentin (Neurontin) 300 mg GT TID [facility] Last Admin: 07/09/19 05:30 Dose: 300 mg Documented by: Piperacillin Sod/Tazobactam (Sod 3.375 gm/ Sodium Chloride) 50 mls @ 12.5 mls/hr IV Q8 [facility] Last Infusion: 07/09/19 09:49 Dose: Infused Documented by: Magnesium Oxide (Mag-Ox 400) 400 mg GT BID [facility] Last Admin: 07/09/19 09:37 Dose: 400 mg Documented by: Nystatin (Mycostatin) 1 applic TOPICAL BID [facility]; Protocol Last Admin: 07/09/19 09:37 Dose: 1 applicatio Documented by: Pantoprazole Sodium (Protonix) 40 mg PO BID [facility] Last Admin: 07/09/19 09:38 Dose: 40 mg Documented by: Sodium Chloride () 10 - 40 ml IV UD PRN PRN Reason: SALINE FLUSH Last Admin: 07/08/19 21:31 Dose: 40 ml Documented by: Medical Necessity - Tobacco Use Smoking Status: Former smoker Tobacco Use: Non-smoker Route of nutrition/ use of supplements: [] Nutritional Intake: [] IV Site: [] Poon Catheter: [] - Assessment/Plan Antibiotics: [] Assessment/Plan: [] Active and Suspected Problems (Last Reviewed 07/04/19 @ 14:[address] Pawan Gunter MD) Viral illness (Acute) Severe sepsis (Acute) severe sepsis, fever, cough, SOB, lymphopenia, CT chest with bilat ground glass changes, lactic acidosis. Resp pcr panel neg. COVID sent through . Bacterial cxs remain neg. Had worsening hypoxia, intubated 07/05, started on 5 day course of plaquenil. Was able to diurese, now much improved and off vent. Repeat covid being sent off of bronchial wash. On zosyn. BAL only with rare lindsey. Will follow, d/w nursing.
[2019-07-09] MEDS: Magnesium Oxide 400 MG Tablet PO (20:54)
[2019-07-09] MEDS: Gabapentin 300 MG Capsule PO (20:55)
[2019-07-09] MEDS: 0.9% Saline Lock 10 ML Syringe IV (20:59)
[2019-07-09] MEDS: Hydroxychloroquine 200 MG Tablet PO (21:00)
[2019-07-10] VITALS (27 sets, daily range): BP systolic 95–121; BP diastolic 68–80; PULSE 67–87; RESP 12–19; TEMP 36.5–37; O2SAT 92–100
[2019-07-10] MEDS: fentaNYL 100 MCG/2 ML Ampul 50 MCG IV ×6 (01:33→20:30)
[2019-07-10] MEDS: Gabapentin 300 MG Capsule PO ×3 (05:29→20:32)
[2019-07-10] MEDS: 0.9% Saline Lock 10 ML Syringe IV ×3 (05:30→14:34)
--- NOTE | 2019-07-10 07:03 | PN_ITS ---
Subjective: Patient reports subjective improvement in overall condition. No acute issues were reported overnight. Patient does have some minimal oxygen requirements to maintain appropriate saturations. No fevers were reported overnight. Patient does report periodic cough productive of clear to white sputum. General: Alert, Oriented x3, Cooperative, No apparent distress, Well developed, Well nourished, - - Speaking in full sentences. HEENT: Atraumatic, PERRLA, EOMI, Normocephalic, - - No scleral icterus or injection noted Oral: Moist Mucosa, No Gingival or Mucosal Lesions/ Ulcerations Neck: Supple, No JVD, No Nodes, Trachea Midline Lungs: No rhonchi, No wheeze, No rales, Diminished, - - Symmetric expansion. Cardiovascular: Regular rate, Regular Rhythm, Normal S1, Normal S2, No murmurs, No rub noted, No Gallop Abdomen: Bowel Sounds Present, Soft, Non Tender, Non-Distended Extremities: No clubbing, No cyanosis, Edema - Trace lower extremity Skin: No rashes, No breakdown Musculoskeletal: No Tenderness to Palpation of Joints or Extremities Lymphatic: No Cervical, Supraclavicular, or Inguinal Adenopathy Neurological: Cranial nerves II-XII grossly intact, Neuro grossly intact, Motor Exam 5/5 strength throughout Psych/Mental Status: Alert and oriented to time, place, person, mood and affect Vital Signs Temp Pulse Resp BP Pulse Ox 36.8 C 71 15 106/75 94 07/10/19 04:00 07/10/19 06:00 07/10/19 06:00 07/10/19 06:00 07/10/19 06:00 Oxygen Flow Rate (L/min) 3 Oxygen Delivery Method Nasal Cannula Weight: 80.1 kg Body Mass Index (BMI) 27.7 Intake and Output for Last 24 Hours 07/08/19 07/09/19 07/10/19 23:59 23:59 23:59 Intake Total 2803.18 / 2923.18 1669.33 / 2029.33 610 / 610 Output Total 4225 / 4225 1400 / 2400 1300 / 1300 Balance -1421.82 / -1301.82 269.33 / -370.67 -690 / -690 Labs (Last 48 Hours) 07/07/19 07/07/19 07/08/19 03:15 09:28 04:00 WBC RBC Hgb Hct MCV MCH MCHC RDW Std Deviation RDW Coeff of Jessica Plt Count MPV Immature Gran % (Auto) Neut % (Auto) Lymph % (Auto) [place] % (Auto) Eos % (Auto) Baso % (Auto) Absolute Neuts (auto) Absolute Lymphs (auto) Nucleated RBC % Differential Comment Diff Path Review Reviewed Reviewed Ovalocytes Stomatocytes Sodium Potassium Chloride Carbon Dioxide Anion Gap BUN Creatinine Estim Creat Clear Calc Est GFR (MDRD) Af Amer Est GFR (MDRD) Non-Af BUN/Creatinine Ratio Glucose Calcium Phosphorus Magnesium Total Bilirubin AST ALT Alkaline Phosphatase Total Protein Albumin Globulin Albumin/Globulin Ratio COVID-19 (RYAN) Pending 07/09/19 07/09/19 04:30 04:30 WBC 3.2 L RBC 3.49 L Hgb 11.5 L Hct 34.8 L MCV 99.7 H MCH 33.0 H MCHC 33.0 RDW Std Deviation 74.8 H RDW Coeff of Jessica 21.2 H Plt Count 202 MPV 9.5 Immature Gran % (Auto) 1.600 H Neut % (Auto) 77.9 H Lymph % (Auto) 9.8 L [place] % (Auto) 8.2 Eos % (Auto) 2.2 Baso % (Auto) 0.3 Absolute Neuts (auto) 2.5 Absolute Lymphs (auto) 0.31 L Nucleated RBC % 1.6 Differential Comment SCANNED Diff Path Review Reviewed Ovalocytes RARE Stomatocytes RARE Sodium 137 Potassium 3.4 L Chloride 99 Carbon Dioxide 29.0 Anion Gap 9 BUN 36 H Creatinine 0.87 Estim Creat Clear Calc 69.17 Est GFR (MDRD) Af Amer 84 Est GFR (MDRD) Non-Af 70 BUN/Creatinine Ratio 41.4 H Glucose 93 Calcium 8.4 L Phosphorus 2.2 L Magnesium 2.1 Total Bilirubin 0.50 AST 24 ALT 10 L Alkaline Phosphatase 71 Total Protein 6.8 Albumin 2.2 L Globulin 4.6 H Albumin/Globulin Ratio 0.5 L COVID-19 (RYAN) Microbiology 07/09/19 17:00 Stool C. difficile DNA Amplification - Final 07/04/19 10:30 Blood Culture (Wb) - Right Forearm Blood Culture - Final No growth in 5 days. 07/04/19 10:25 Blood Culture (Wb) - Anticubital Right Blood Culture - Final No growth in 5 days. 07/07/19 09:28 Wash - Bronchial Wash Gram Stain - Final 07/07/19 09:28 Wash - Bronchial Wash Respiratory Culture - Final Presumptive C albicans 07/06/19 22:45 Sputum, Induced/Lukens Gram Stain - Final 07/06/19 22:45 Sputum, Induced/Lukens Respiratory Culture - Final Presumptive C albicans Medical Necessity - Tobacco Use Smoking Status: Former smoker Tobacco Use: Non-smoker Assessment/Plan All Active Problems (Last Reviewed 07/04/19 @ 14:[address] Pawan Gunter MD) Viral illness (Acute) Severe sepsis (Acute) RECOMMENDATIONS: 1. Continue antibiotics per ID recommendations 2. Continue hydroxychloroquine to complete 5-day course per ID recommendations over concerns for false negative COVID testing. 3. Repeat COVID testing still pending. 4. Continue scheduled lasix as tolerated by renal function. Potassium repletion ordered 5. Wean FiO2 to maintain oxygen saturations at or above 90%. 6. Okay to leave the intensive care unit from my perspective. May await COVID results to direct disposition IMPRESSIONS: 1. Acute hypoxemic respiratory failure secondary to suspected coronavirus Initial findings were significantly concerning for viral etiology. Patient did have a coronavirus sent initially, but this was read as normal. Yvonne miller's repeat COVID testing are currently pending at [facility]. Patient is doing much better from a respiratory standpoint. Likely okay to leave the intensive care unit. May await repeat testing to know if patient should go to PCU without precautions versus MedSurg 2 for COVID. Will continue patient on fentanyl as needed, but may transition to baseline methadone once patient is done with Plaquenil dosage regimen. QT is been slightly prolonged at over 500. Cardiac monitoring for chloroquine/hydroxychloroquine for suspected or confirmed COVID-[address] Place patient on telemetry and obtain baseline twelve-lead EKG. 2. Discontinue all QT prolonging medications if possible. 3. Correct electrolyte abnormalities, specifically maintain potassium greater than 4 and magnesium greater than 2. 4. Obtain EKG 2 hours after first dose. -If predrug QRS duration is less than 120 ms, can proceed with second dose if QTC is less than 520 ms. -If predrug QRS duration is greater than 120 ms, with [place] conduction, can proceed to give second dose if the QTC is less than 570 ms. -For paced QRS complex, QTC monitoring is not indicated. 5. Unless there is a worrisome arrhythmia, the EKG needs to be obtained only at baseline and after the first dose of the medication. 2. Macrocytic anemia The patient did have a purnima hemoglobin level during this hospitalization of 6.9 g/dL, for which she received transfusion of blood products. Stool for occult blood was positive. I would plan to continue to monitor the patient's hemoglobin daily, with plans to transfuse if hemoglobin once again drops below 7 g/dL. No indication for transfusion at this time. Continue PPI therapy as ordered. 3. History of Takotsubo cardiomyopathy/personal history of breast cancer with mets/chronic pain syndrome/GERD Complicates care, management, recovery and prognosis. Continue home medications as indicated. Bedside swallow evaluation when appropriate Inpatient E&M: 68993 [facility] L3
--- NOTE | 2019-07-10 08:22 | PN_ITS ---
Patient Problems: Active and Suspected Problems (Last Reviewed 07/04/19 @ 14:[address] Pawan Gunter MD) Viral illness (Acute) Severe sepsis (Acute) Subjective: Chief complaint: Follow-up after admission for acute viral pneumonia, suspected coronavirus, acute hypoxic respiratory failure. Patient seen and examined. No acute events overnight. Patient reported occasional productive cough with minimal sputum. Denied shortness of breath, fever or chills. She is tolerating regular diet. She has been afebrile, blood pressure undoubted are stable, she is requiring some oxygen and she has been on 2 L. - Physical Exam Vitals/I&O's: Vital Signs Temp Pulse Resp BP Pulse Ox 98.2 F 71 16 108/68 97 07/10/19 04:00 07/10/19 08:00 07/10/19 08:00 07/10/19 08:00 07/10/19 08:00 Oxygen Flow Rate (L/min) 2 Oxygen Delivery Method Nasal Cannula Weight: 176 lb 9.444 oz Body Mass Index (BMI) 27.7 Intake and Output for Last 24 Hours 07/08/19 07/09/19 07/10/19 23:59 23:59 23:59 Intake Total 2803.18 / 2923.18 1669.33 / 2029.33 610 / 610 Output Total 4225 / 4225 1400 / 2400 1300 / 1300 Balance -1421.82 / -1301.82 269.33 / -370.67 -690 / -690 General: Alert, Oriented x3, Cooperative, No apparent distress HEENT: Atraumatic, PERRLA, EOMI, Normocephalic Oral: Moist Mucosa, No Gingival or Mucosal Lesions/ Ulcerations Neck: Supple, No JVD, Negative Carotid Bruits, Trachea Midline, Thyroid Normal Size and Texture Lungs: Clear to auscultation, Normal air movement, No rhonchi, No wheeze, No rales, Diminished, - Cardiovascular: Regular rate, Regular Rhythm, Normal S1, Normal S2, PMI Normal Abdomen: Bowel Sounds Present, Soft, Non Tender, Non-Distended, No Hepato-s plenomegaly Extremities: No clubbing, No cyanosis, No edema Skin: No rashes, No breakdown Lymphatic: No Cervical, Supraclavicular, or Inguinal Adenopathy Neurological: Cranial nerves II-XII grossly intact, Neuro grossly intact Psych/Mental Status: Normal Affect, Appropriate, Alert and oriented to time, place, person, mood and affect Microbiology Past 72 Hours 07/09/19 17:00 Stool C. difficile DNA Amplification - Final 07/04/19 10:30 Blood Culture (Wb) - Right Forearm Blood Culture - Final No growth in 5 days. 07/04/19 10:25 Blood Culture (Wb) - Anticubital Right Blood Culture - Final No growth in 5 days. 07/07/19 09:28 Wash - Bronchial Wash Gram Stain - Final 07/07/19 09:28 Wash - Bronchial Wash Respiratory Culture - Final Presumptive C albicans 07/06/19 22:45 Sputum, Induced/Lukens Gram Stain - Final 07/06/19 22:45 Sputum, Induced/Lukens Respiratory Culture - Final Presumptive C albicans Laboratory Results 07/07/19 03:15: Diff Path Review Reviewed 07/07/19 09:28: COVID-19 (RYAN) Pending 07/08/19 04:00: Diff Path Review Reviewed 07/09/19 04:30: Diff Path Review Reviewed Current Medications Acetaminophen (Tylenol) 650 mg PO Q4H PRN PRN PRN Reason: HEADACHE/FEVER (T>102.5) Albuterol Sulfate (Ventolin Aerosols) 2.5 mg INHALATION Q2H PRN PRN PRN Reason: Shortness of Breath/Wheezing Last Admin: 07/06/19 11:10 Dose: 2.5 mg Documented by: Dexamethasone (Decadron) 2 mg PO DAILY [facility] Enoxaparin Sodium (Lovenox) 40 mg SC DAILY [facility] Last Admin: 07/09/19 09:36 Dose: 40 mg Documented by: Fentanyl Citrate (Sublimaze (100mcg Ampule)) 50 mcg IV Q2H PRN PRN PRN Reason: Pain Score 1-10/10 Last Admin: 07/10/19 05:29 Dose: 50 mcg Documented by: Furosemide (Lasix) 40 mg IV BID@1000,1800 [facility] Last Admin: 07/09/19 16:44 Dose: 40 mg Documented by: Gabapentin (Neurontin) 300 mg PO TID [facility] Last Admin: 07/10/19 05:29 Dose: 300 mg Documented by: Hydroxychloroquine Sulfate (Plaquenil) 200 mg PO BID [facility] Stop: 07/10/19 22:01 Last Admin: 07/09/19 21:00 Dose: 200 mg Documented by: Piperacillin Sod/Tazobactam (Sod 3.375 gm/ Sodium Chloride) 50 mls @ 12.5 mls/hr IV Q8 [facility] Last Admin: 07/10/19 05:29 Dose: 12.5 mls/hr Documented by: Magnesium Oxide (Mag-Ox 400) 400 mg PO BID [facility] Last Admin: 07/09/19 20:54 Dose: 400 mg Documented by: Nystatin (Mycostatin) 1 applic TOPICAL BID [facility]; Protocol Last Admin: 07/09/19 21:00 Dose: 1 applicatio Documented by: Pantoprazole Sodium (Protonix) 40 mg PO BID [facility] Last Admin: 07/09/19 20:55 Dose: 40 mg Documented by: [facility] Stop: 07/10/19 17:01 Sodium Chloride () 10 - 40 ml IV UD PRN PRN Reason: SALINE FLUSH Last Admin: 07/10/19 05:30 Dose: 40 ml Documented by: Medical Necessity - Tobacco Use Smoking Status: Former smoker Tobacco Use: Non-smoker Assessment/Plan All Active Problems (Last Reviewed 07/04/19 @ 14:[address] Pawan Gunter MD) Viral illness (Acute) Severe sepsis (Acute) This is a 63 years old female patient presented to the emergency room because of shortness of breath, found to have acute probably viral pneumonia with suspected COVID-19 infection, complicated by acute hypoxic respiratory failure status post extubation and sepsis and also found to have acute on chronic anemia and probable acute combined CHF. #1 acute probably viral pneumonia/sepsis/suspected COVID-19 fraction: Remains on IV Zosyn. She is on hydroxychloroquine for suspected COVID-19 infection. She has been afebrile, blood pressure and heart rate are stable, pulse ox is 98% on 2 L. Respiratory panel for viruses were negative. COVID-19 testing is pending. Pneumococcal and Legionella antigen were negative. Blood and urine cultures showed no growth. Sputum culture revealed presumptive Majo albicans. Bronchial wash revealed presumptive Majo albicans. Plan to continue same treatment, transfer out of ICU pending COVID-19 results. #2 acute hypoxic respiratory failure: Status post extubation yesterday. Symptoms improved, pulse ox is maintained at 98% on 2 L. Plan as above. #3 acute on chronic anemia: Attributed to history of cancer and being on chemotherapy. Also, stool for occult blood was positive. She is on PPI. No evidence of active bleeding this time. Yesterday's hemoglobin is 11.5 g/dL, improved. Plan to monitor. 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 She does have good urine output. 2D echocardiogram revealed dilated left ventri kim, ejection fraction 50%, severely enlarged left atrium, RVSP 58 consistent with moderate pulmonary hypertension. Kidney function remained stable. Plan to continue IV diuresis. #5 history of metastatic breast cancer: Status post surgery and chemotherapy. #6 GERD: Continue PPI. #7 DVT prophylaxis: Subcu Lovenox. This note was generated with [employer] dictation software. It may contain incorrect words, spelling, and punctuation that were not noted in checking the note before signing. Inpatient E&M: 42985 Subs Hosp L2
[2019-07-10] MEDS: dexAMETHasone 4 MG Tablet 2 MG PO (09:19)
[2019-07-10] MEDS: Magnesium Oxide 400 MG Tablet PO ×2 (09:19→20:31)
[2019-07-10] MEDS: Pantoprazole Sodium 40 MG Tablet PO ×2 (09:19→20:31)
[2019-07-10] MEDS: Furosemide 40 MG/4 ML Vial IV ×2 (09:19→18:16)
[2019-07-10] MEDS: Hydroxychloroquine 200 MG Tablet PO ×2 (09:19→20:31)
[2019-07-10] MEDS: Nystatin Ointment 1 APPLIC TOPICAL ×2 (09:21→20:32)
[2019-07-10] MEDS: Enoxaparin 40 MG/0.4 ML Syringe SC (09:21)
--- NOTE | 2019-07-10 09:54 | CASEMGMT ---
Social Work Note SW participated in ICU rounds. It is anticipated that COVID results will be in today and those results will determine if pt gets transferred to MS2 or PCU. LORETTA spoke with PT/OT, they are anticipating pt will be able to return to [facility] possibly with HHC. LORETTA faxed updated clinicals to Linda KEY at [facility]. LORETTA placed a call to Linda at [facility] and updated her that results for COVID should be in today and then pt will be transferred out of ICU today. LORETTA updated Linda that pt is on Plaquenil, with last dose tomorrow. LORETTA informed Linda that per PT/OT they anticipate pt will be able to return to [facility] with PT/OT. Linda states [facility] has their own PT/OT that pt will be able to get at discharge. LORETTA asked Linda about oxygen at discharge as pt is currently on 2-3 liters. Linda states she had put concentrator in pt's room before pt had left and got the concentrator from the SNF side at [facility]. Linda states they utilize [facility] for oxygen. LORETTA updated RN CM. Plan: Return to [facility] once medically cleared. Monitor for HHC and oxygen. Aleyda aYng FOREST BIOMETRICS PROFESSOR, SCREEN PRINTING EQUIPMENT SETTER
--- NOTE | 2019-07-10 10:17 | PCM.PN.ID ---
Patient Problems: Active and Suspected Problems (Last Reviewed 07/04/19 @ 14:[address] Pawan Gunter MD) Viral illness (Acute) Severe sepsis (Acute) Subjective: Feeling better, mild loose stool, no fever, rare cough. - Physical Exam Vitals/I&O's: Vital Signs Temp Pulse Resp BP Pulse Ox 98.2 F 71 16 108/68 97 07/10/19 04:00 07/10/19 08:00 07/10/19 08:00 07/10/19 08:00 07/10/19 08:00 Oxygen Flow Rate (L/min) 2 Oxygen Delivery Method Nasal Cannula Weight: 80.1 kg Body Mass Index (BMI) 27.7 Intake and Output for Last 24 Hours 07/08/19 07/09/19 07/10/19 23:59 23:59 23:59 Intake Total 2803.18 / 2923.18 1669.33 / 2029.33 660 / 660 Output Total 4225 / 4225 1400 / 2400 1300 / 1300 Balance -1421.82 / -1301.82 269.33 / -370.67 -640 / -640 General: Alert, Cooperative, No apparent distress Lungs: Clear to auscultation, Normal air movement Cardiovascular: Regular rate, Regular Rhythm Abdomen: Soft, Non Tender, Non-Distended Skin: No rashes Microbiology Past 72 Hours 07/09/19 17:00 Stool C. difficile DNA Amplification - Final 07/04/19 10:30 Blood Culture (Wb) - Right Forearm Blood Culture - Final No growth in 5 days. 07/04/19 10:25 Blood Culture (Wb) - Anticubital Right Blood Culture - Final No growth in 5 days. 07/07/19 09:28 Wash - Bronchial Wash Gram Stain - Final 07/07/19 09:28 Wash - Bronchial Wash Respiratory Culture - Final Presumptive C albicans 07/06/19 22:45 Sputum, Induced/Lukens Gram Stain - Final 07/06/19 22:45 Sputum, Induced/Lukens Respiratory Culture - Final Presumptive C albicans Laboratory Results 07/07/19 03:15: Diff Path Review Reviewed 07/07/19 09:28: COVID-19 (RYAN) Pending 07/08/19 04:00: Diff Path Review Reviewed 07/09/19 04:30: Diff Path Review Reviewed Current Medications Acetaminophen (Tylenol) 650 mg PO Q4H PRN PRN PRN Reason: HEADACHE/FEVER (T>102.5) Albuterol Sulfate (Ventolin Aerosols) 2.5 mg INHALATION Q2H PRN PRN PRN Reason: Shortness of Breath/Wheezing Last Admin: 07/06/19 11:10 Dose: 2.5 mg Documented by: Dexamethasone (Decadron) 2 mg PO DAILY [facility] Last Admin: 07/10/19 09:19 Dose: 2 mg Documented by: Enoxaparin Sodium (Lovenox) 40 mg SC DAILY [facility] Last Admin: 07/10/19 09:21 Dose: 40 mg Documented by: Fentanyl Citrate (Sublimaze (100mcg Ampule)) 50 mcg IV Q2H PRN PRN PRN Reason: Pain Score 1-10/10 Last Admin: 07/10/19 09:20 Dose: 50 mcg Documented by: Furosemide (Lasix) 40 mg IV BID@1000,1800 [facility] Last Admin: 07/10/19 09:19 Dose: 40 mg Documented by: Gabapentin (Neurontin) 300 mg PO TID [facility] Last Admin: 07/10/19 05:29 Dose: 300 mg Documented by: Hydroxychloroquine Sulfate (Plaquenil) 200 mg PO BID [facility] Stop: 07/10/19 22:01 Last Admin: 07/10/19 09:19 Dose: 200 mg Documented by: Magnesium Oxide (Mag-Ox 400) 400 mg PO BID [facility] Last Admin: 07/10/19 09:19 Dose: 400 mg Documented by: Nystatin (Mycostatin) 1 applic TOPICAL BID [facility]; Protocol Last Admin: 07/10/19 09:21 Dose: 1 applicatio Documented by: Pantoprazole Sodium (Protonix) 40 mg PO BID [facility] Last Admin: 07/10/19 09:19 Dose: 40 mg Documented by: Potassium Ch[facility] ([facility]) [facility] Stop: 07/10/19 17:01 Last Admin: 07/10/19 09:20 Dose: 20 meq Documented by: Sodium Chloride () 10 - 40 ml IV UD PRN PRN Reason: SALINE FLUSH Last Admin: 07/10/19 09:19 Dose: 20 ml Documented by: Medical Necessity - Tobacco Use Smoking Status: Former smoker Tobacco Use: Non-smoker Route of nutrition/ use of supplements: [] Nutritional Intake: [] IV Site: [] Poon Catheter: [] - Assessment/Plan Antibiotics: [] Assessment/Plan: [] Active and Suspected Problems (Last Reviewed 07/04/19 @ 14:[address] Pawan Gunter MD) Viral illness (Acute) Severe sepsis (Acute) severe sepsis, fever, cough, SOB, lymphopenia, CT chest with bilat ground glass changes, lactic acidosis. Resp pcr panel neg. COVID sent through [facility]. Bacterial cxs remain neg. Had worsening hypoxia, intubated 07/05, started on 5 day course of plaquenil. Was able to diurese, now much improved and off vent. Repeat covid being sent off of bronchial wash. On zosyn. BAL only with rare lindsey. Will stop zosyn today. Will follow
[2019-07-10] MEDS: Acetaminophen 325 MG Tablet 650 MG PO (11:21)
[2019-07-11] VITALS (17 sets, daily range): BP systolic 94–124; BP diastolic 60–86; PULSE 68–86; RESP 12–20; TEMP 36.3–36.6; O2SAT 92–100
[2019-07-11] MEDS: fentaNYL 100 MCG/2 ML Ampul 50 MCG IV ×2 (00:04→05:16)
[2019-07-11] MEDS: 0.9% Saline Lock 10 ML Syringe IV ×2 (00:04→05:16)
[2019-07-11] MEDS: Gabapentin 300 MG Capsule PO ×3 (05:17→21:54)
[2019-07-11 06:55] LABS: Anion Gap 5 (5-15); BUN 36 mg/dL (7-18); BUN/Creat Ratio 42.6 RATIO (10-20); Calcium,Total 9.5 mg/dL (8.5-10.1); Chloride 95 mmol/L (98-107); Creatinine, Serum 0.84 mg/dL (0.55-1.02); EST Glomerular Filtration Rate 72 mL/min (>60); Est Glom Filt Rate - Afr Amer 87 mL/min (>60); Estimated Creatinine Clearance 71.64 ml/min; Glucose 108 mg/dL (74-106); Potassium 4.1 mmol/L (3.5-5.1); Sodium Level 133 mmol/L (136-145)
[2019-07-11] MEDS: HYDROmorphone 2 MG TABLET 4 MG PO (08:42)
[2019-07-11] MEDS: Methadone 10 MG Tablet 30 MG PO ×3 (08:42→21:54)
--- NOTE | 2019-07-11 09:07 | PN_ITS ---
Patient Problems: Active and Suspected Problems (Last Reviewed 07/04/19 @ 14:[address] 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 Patient seen and examined. No acute events overnight. She is feeling better, no more shortness of breath. Denies any complaints. She is tolerating diet. She has been afebrile, blood pressure and heart rate are stable, pulse ox is 94% on 2 L. - Physical Exam Vitals/I&O's: Vital Signs Temp Pulse Resp BP Pulse Ox 97.4 F L 76 19 H 107/85 H 94 07/11/19 08:00 07/11/19 08:00 07/11/19 08:00 07/11/19 08:00 07/11/19 08:00 Oxygen Flow Rate (L/min) 2 Oxygen Delivery Method Nasal Cannula Weight: 176 lb 12.972 oz Body Mass Index (BMI) 27.7 Intake and Output for Last 24 Hours 07/09/19 07/10/19 07/11/19 23:59 23:59 23:59 Intake Total 1669.33 / 2029.33 1500 / 1800 535 / 535 Output Total 1400 / 2400 2100 / 2800 1450 / 1450 Balance 269.33 / -370.67 -600 / -1000 -915 / -915 General: Alert, Oriented x3, Cooperative, No apparent distress HEENT: Atraumatic, PERRLA, EOMI, Normocephalic Oral: Moist Mucosa, No Gingival or Mucosal Lesions/ Ulcerations Neck: Supple, No JVD, Negative Carotid Bruits, Trachea Midline, Thyroid Normal Size and Texture Lungs: Clear to auscultation, No rhonchi, No wheeze, No rales, Diminished Cardiovascular: Regular rate, Regular Rhythm, Normal S1, Normal S2, PMI Normal Abdomen: Bowel Sounds Present, Soft, Non Tender, Non-Distended, No Hepato- splenomegaly Extremities: No clubbing, No cyanosis, No edema Skin: No rashes, No breakdown Lymphatic: No Cervical, Supraclavicular, or Inguinal Adenopathy Neurological: Cranial nerves II-XII grossly intact, Neuro grossly intact Psych/Mental Status: Normal Affect, Appropriate Microbiology Past 72 Hours 07/09/19 17:00 Stool C. difficile DNA Amplification - Final 07/04/19 10:30 Blood Culture (Wb) - Right Forearm Blood Culture - Final No growth in 5 days. 07/04/19 10:25 Blood Culture (Wb) - Anticubital Right Blood Culture - Final No growth in 5 days. 07/07/19 09:28 Wash - Bronchial Wash Gram Stain - Final 07/07/19 09:28 Wash - Bronchial Wash Respiratory Culture - Final Presumptive C albicans 07/06/19 22:45 Sputum, Induced/Lukens Gram Stain - Final 07/06/19 22:45 Sputum, Induced/Lukens Respiratory Culture - Final Presumptive C albicans Laboratory Results 07/07/19 09:28: COVID-19 (RYAN) 07/11/19 06:30: Sodium 133 L, Potassium 4.1, Chloride 95 L, Carbon Dioxide 33.0 H, Anion Gap 5, BUN 36 H, Creatinine 0.84, Estim Creat Clear Calc 71.64, Est GFR (MDRD) Af Amer 87, Est GFR (MDRD) Non-Af 72, BUN/Creatinine Ratio 42.6 H, Glucose 108 H, Calcium 9.5 Current Medications Acetaminophen (Tylenol) 650 mg PO Q4H PRN PRN PRN Reason: HEADACHE/FEVER (T>102.5) Last Admin: 07/10/19 11:21 Dose: 650 mg Documented by: Albuterol Sulfate (Ventolin Aerosols) 2.5 mg INHALATION Q2H PRN PRN PRN Reason: Shortness of Breath/Wheezing Last Admin: 07/06/19 11:10 Dose: 2.5 mg Documented by: Dexamethasone (Decadron) 2 mg PO DAILY [facility] Last Admin: 07/10/19 09:19 Dose: 2 mg Documented by: Enoxaparin Sodium (Lovenox) 40 mg SC DAILY [facility] Last Admin: 07/10/19 09:21 Dose: 40 mg Documented by: Furosemide (Lasix) 40 mg IV BID@1000,1800 [facility] Last Admin: 07/10/19 18:16 Dose: 40 mg Documented by: Gabapentin (Neurontin) 300 mg PO TID [facility] Last Admin: 07/11/19 05:17 Dose: 300 mg Documented by: Hydromorphone HCl (Dilaudid Tablet) 4 mg PO TID PRN PRN Reason: Pain Score 1-10/10 Last Admin: 07/11/19 08:42 Dose: 4 mg Documented by: Magnesium Oxide (Mag-Ox 400) 400 mg PO BID [facility] Last Admin: 07/10/19 20:31 Dose: 400 mg Documented by: Methadone HCl () 30 mg PO TID [facility] Last Admin: 07/11/19 08:42 Dose: 30 mg Documented by: Nystatin (Mycostatin) 1 applic TOPICAL BID [facility]; Protocol Last Admin: 07/10/19 20:32 Dose: 1 applicatio Documented by: Pantoprazole Sodium (Protonix) 40 mg PO BID [facility] Last Admin: 07/10/19 20:31 Dose: 40 mg Documented by: Sodium Chloride () 10 - 40 ml IV UD PRN PRN Reason: SALINE FLUSH Last Admin: 07/11/19 05:16 Dose: 10 ml Documented by: Medical Necessity - Tobacco Use Smoking Status: Former smoker Tobacco Use: Non-smoker Assessment/Plan All Active Problems (Last Reviewed 07/04/19 @ 14:[address] Pawan Gunter MD) Viral illness (Acute) Severe sepsis (Acute) This is a 63 years old female patient presented to the emergency room because of shortness of breath, found to have acute probably viral pneumonia with suspected COVID-19 infection, complicated by acute hypoxic respiratory failure status post extubation and sepsis and also found to have acute on chronic anemia and probable acute combined CHF. #1 acute probably viral pneumonia/sepsis: Completed course of IV Zosyn, this was discontinued yesterday. COVID-19 testing done twice and came back negative. It is ruled out. Hydroxychloroquine discontinued as well. She has been afebrile, other vital signs are stable. Respiratory panel for viruses were negative. Pneumococcal and Legionella antigen were negative. Blood and urine cultures showed no growth. Sputum culture revealed presumptive Majo albicans. Bronchial wash revealed presumptive Majo albicans. Plan to continue same treatment, transfer to PCU. #2 acute hypoxic respiratory failure: Multifactorial secondary to pneumonia, acute on chronic anemia as well as CHF. Status post extubation. Respiratory status stabilized, pulse ox is maintained on 2 L. #3 acute on chronic anemia: Attributed to history of cancer and being on chemoth erapy. Also, stool for occult blood was positive. She is on PPI. No evidence of active bleeding this time. Most recent hemoglobin is 11.5 g/dL, improved. Plan to monitor. 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 She does have good urine output. 2D echocardiogram revealed dilated left ventricle, ejection fraction 50%, severely enlarged left atrium, RVSP 58 consistent with moderate pulmonary hypertension. Kidney function remained stable. Plan switch Lasix to p.o.. #5 history of metastatic breast cancer: Status post surgery and chemotherapy. #6 GERD: Continue PPI. #7 DVT prophylaxis: Subcu Lovenox. This note was generated with [employer] dictation software. It may contain incorrect words, spelling, and punctuation that were not noted in checking the note before signing. Inpatient E&M: 31987 Subs Hosp L2
[2019-07-11] MEDS: Pantoprazole Sodium 40 MG Tablet PO ×2 (09:51→21:54)
[2019-07-11] MEDS: Enoxaparin 40 MG/0.4 ML Syringe SC (09:51)
[2019-07-11] MEDS: Magnesium Oxide 400 MG Tablet PO ×2 (09:51→21:54)
[2019-07-11] MEDS: Furosemide 40 MG Tablet PO ×2 (09:51→17:21)
[2019-07-11] MEDS: dexAMETHasone 4 MG Tablet 2 MG PO (09:52)
[2019-07-11] MEDS: Nystatin Ointment 1 APPLIC TOPICAL ×2 (09:52→21:54)
--- NOTE | 2019-07-11 09:54 | CASEMGMT ---
Addendum entered by Aleyda Yang 07/11/19 10:11: LORETTA faxed updated clinicals to [facility]. Original Note: Social Work Note SW participated in ICU Rounds. Pt's second COVID test came back negative, pt will be transferred to PCU today. LORETTA placed a call to Linda KEY at [facility] and updated her that that pt's second COVID test came back negative and pt will be transferred to PCU and Donya QUEVEDO will be following pt on PCU. Linda states that if pt has any skilled needs at discharge (therapy, IV antibiotics) pt would be able to return to [facility] skilled if needed. LORETTA will fax updated clinicals to [facility] when available. Plan: Likely return to [facility] once medically cleared. Monitor for HHC and oxygen needs at discharge. Aleyda Yang CARD GAME OPERATOR, STRAIGHT EDGER
--- NOTE | 2019-07-11 10:00 | PCM.PN.INT ---
Subjective: Patient did well overnight. Patient's COVID testing came back negative at approximately 5 PM, but patient remained in the unit secondary to bed issues. Patient feels subjectively improved compared to yesterday. Patient is out of precautions. Patient currently 96% on 2 L and reports minimal respiratory complaints. General: Alert, Oriented x3, Cooperative, No apparent distress, Well developed, Well nourished, - - No conversational dyspnea. HEENT: Atraumatic, PERRLA, EOMI, Normocephalic, - - No scleral icterus or injection noted Oral: Moist Mucosa, No Gingival or Mucosal Lesions/ Ulcerations Neck: Supple, No JVD, No Nodes, Trachea Midline Lungs: No rhonchi, No wheeze, No rales, Diminished, - - Symmetric expansion. No dullness to percussion. Cardiovascular: Regular rate, Regular Rhythm, Normal S1, Normal S2, No murmurs, No rub noted, No Gallop Abdomen: Bowel Sounds Present, Soft, Non Tender, Non-Distended Extremities: No clubbing, No cyanosis, No edema, Capillary Refill Less than 3 Seconds Skin: No rashes, No breakdown Musculoskeletal: No Tenderness to Palpation of Joints or Extremities Lymphatic: No Cervical, Supraclavicular, or Inguinal Adenopathy Neurological: Cranial nerves II-XII grossly intact, Neuro grossly intact, Motor Exam 5/5 strength throughout Psych/Mental Status: Alert and oriented to time, place, person, mood and affect Vital Signs Temp Pulse Resp BP Pulse Ox 36.3 C L 72 16 120/82 H 98 07/11/19 08:00 07/11/19 09:00 07/11/19 09:00 07/11/19 09:00 07/11/19 09:00 Oxygen Flow Rate (L/min) 2 Oxygen Delivery Method Nasal Cannula Weight: 80.2 kg Body Mass Index (BMI) 27.7 Intake and Output for Last 24 Hours 07/09/19 07/10/19 07/11/19 23:59 23:59 23:59 Intake Total 1669.33 / 2029.33 1500 / 1800 535 / 535 Output Total 1400 / 2400 2100 / 2800 1450 / 1450 Balance 269.33 / -370.67 -600 / -1000 -915 / -915 Labs (Last 48 Hours) 07/07/19 07/07/19 07/08/19 03:15 09:28 04:00 Diff Path Review Reviewed Reviewed Sodium Potassium Chloride Carbon Dioxide Anion Gap BUN Creatinine Estim Creat Clear Calc Est GFR (MDRD) Af Amer Est GFR (MDRD) Non-Af BUN/Creatinine Ratio Glucose Calcium COVID-19 (RYAN) 07/09/19 07/11/19 04:30 06:30 Diff Path Review Reviewed Sodium 133 L Potassium 4.1 Chloride 95 L Carbon Dioxide 33.0 H Anion Gap 5 BUN 36 H Creatinine 0.84 Estim Creat Clear Calc 71.64 Est GFR (MDRD) Af Amer 87 Est GFR (MDRD) Non-Af 72 BUN/Creatinine Ratio 42.6 H Glucose 108 H Calcium 9.5 COVID-19 (RYAN) Microbiology 07/09/19 17:00 Stool C. difficile DNA Amplification - Final 07/04/19 10:30 Blood Culture (Wb) - Right Forearm Blood Culture - Final No growth in 5 days. 07/04/19 10:25 Blood Culture (Wb) - Anticubital Right Blood Culture - Final No growth in 5 days. 07/07/19 09:28 Wash - Bronchial Wash Gram Stain - Final 07/07/19 09:28 Wash - Bronchial Wash Respiratory Culture - Final Presumptive C albicans 07/06/19 22:45 Sputum, Induced/Lukens Gram Stain - Final 07/06/19 22:45 Sputum, Induced/Lukens Respiratory Culture - Final Presumptive C albicans Medical Necessity - Tobacco Use Smoking Status: Former smoker Tobacco Use: Non-smoker Assessment/Plan All Active Problems (Last Reviewed 07/04/19 @ 14:[address] Pawan Gunter MD) Viral illness (Acute) Severe sepsis (Acute) RECOMMENDATIONS: 1. Continue antibiotics per ID recommendations 2. Okay to reinitiate baseline pain medications 3. COVID testing by bronchial wash was negative. This is relatively definitive, so precautions can be discontinued 4. Continue scheduled lasix as tolerated by renal function. Potassium repletion ordered as indicated 5. Wean FiO2 to maintain oxygen saturations at or above 90%. 6. Okay to leave the intensive care unit from my perspective. IMPRESSIONS: 1. Acute hypoxemic respiratory failure secondary to suspected coronavirus Initial findings were significantly concerning for viral etiology. Patient did have a coronavirus sent initially, but this was read as normal. Patient's repeat COVID testing were also negative. Patient is doing much better from a respiratory standpoint. This would be suggestive of CHF as an underlying etiology. Patient continues to improve with diuresis. We will transition back to baseline methadone and Dilaudid therapy. 2. Macrocytic anemia The patient did have a purnima hemoglobin level during this hospitalization of 6.9 g/dL, for which she received transfusion of blood products. Stool for occult blood was positive. I would plan to continue to monitor the patient's hemoglobin daily, with plans to transfuse if hemoglobin once again drops below 7 g/dL. No indication for transfusion at this time. Continue PPI therapy as ordered. 3. History of Takotsubo cardiomyopathy/personal history of breast cancer with mets/chronic pain syndrome/GERD Complicates care, management, recovery and prognosis. Continue home medications as indicated. Bedside swallow evaluation when appropriate Inpatient E&M: [id number] [facility] L3
--- NOTE | 2019-07-11 12:12 | CASEMGMT ---
Patient did not do well with therapy today. LORETTA spoke with Linda and Lina at [facility] [address] and it was agreed patient should go to the SNF side for awhile. LORETTA spoke with patient and she was in agreement. LORETTA faxed all information and Lina will start the pre-cert. Plan: [facility] under skilled level of care pending pre-cert. Donya QUEVEDO MSW
--- NOTE | 2019-07-11 14:51 | PN.ID_ITS ---
Patient Problems: Active and Suspected Problems (Last Reviewed 07/04/19 @ 14:[address] Pawan Gunter MD) Viral illness (Acute) Severe sepsis (Acute) Subjective: Feeling better, no dyspnea, no fever, mild cough. - Physical Exam Vitals/I&O's: Vital Signs Temp Pulse Resp BP Pulse Ox 97.6 F L 78 12 119/86 H 94 07/11/19 10:00 07/11/19 10:00 07/11/19 10:00 07/11/19 10:00 07/11/19 10:00 Oxygen Flow Rate (L/min) 1.5 Oxygen Delivery Method Nasal Cannula Weight: 80.2 kg Body Mass Index (BMI) 27.7 Intake and Output for Last 24 Hours 07/09/19 07/10/19 07/11/19 23:59 23:59 23:59 Intake Total 1669.33 / 2029.33 1500 / 1800 655 / 655 Output Total 1400 / 2400 2100 / 2800 1450 / 1450 Balance 269.33 / -370.67 -600 / -1000 -795 / -795 General: Alert, Cooperative, No apparent distress Lungs: Clear to auscultation, Normal air movement Cardiovascular: Regular rate, Regular Rhythm Abdomen: Soft, Non Tender, Non-Distended Skin: No rashes Microbiology Past 72 Hours 07/09/19 17:00 Stool C. difficile DNA Amplification - Final 07/04/19 10:30 Blood Culture (Wb) - Right Forearm Blood Culture - Final No growth in 5 days. 07/04/19 10:25 Blood Culture (Wb) - Anticubital Right Blood Culture - Final No growth in 5 days. 07/07/19 09:28 Wash - Bronchial Wash Gram Stain - Final 07/07/19 09:28 Wash - Bronchial Wash Respiratory Culture - Final Presumptive C albicans 07/06/19 22:45 Sputum, Induced/Lukens Gram Stain - Final 07/06/19 22:45 Sputum, Induced/Lukens Respiratory Culture - Final Presumptive C albicans Laboratory Results 07/07/19 09:28: COVID-19 (RYAN) 07/11/19 06:30: Sodium 133 L, Potassium 4.1, Chloride 95 L, Carbon Dioxide 33.0 H, Anion Gap 5, BUN 36 H, Creatinine 0.84, Estim Creat Clear Calc 71.64, Est GFR (MDRD) Af Amer 87, Est GFR (MDRD) Non-Af 72, BUN/Creatinine Ratio 42.6 H, Glucose 108 H, Calcium 9.5 Current Medications Acetaminophen (Tylenol) 650 mg PO Q4H PRN PRN PRN Reason: HEADACHE/FEVER (T>102.5) Last Admin: 07/10/19 11:21 Dose: 650 mg Documented by: Albuterol Sulfate (Ventolin Aerosols) 2.5 mg INHALATION Q2H PRN PRN PRN Reason: Shortness of Breath/Wheezing Last Admin: 07/06/19 11:10 Dose: 2.5 mg Documented by: Dexamethasone (Decadron) 2 mg PO DAILY [facility] Last Admin: 07/11/19 09:52 Dose: 2 mg Documented by: Enoxaparin Sodium (Lovenox) 40 mg SC DAILY [facility] Last Admin: 07/11/19 09:51 Dose: 40 mg Documented by: Furosemide (Lasix) 40 mg PO BID@1000,1800 [facility] Last Admin: 07/11/19 09:51 Dose: 40 mg Documented by: Gabapentin (Neurontin) 300 mg PO TID [facility] Last Admin: 07/11/19 14:01 Dose: 300 mg Documented by: Hydromorphone HCl (Dilaudid Tablet) 4 mg PO TID PRN PRN Reason: Pain Score 1-10/10 Last Admin: 07/11/19 08:42 Dose: 4 mg Documented by: Magnesium Oxide (Mag-Ox 400) 400 mg PO BID [facility] Last Admin: 07/11/19 09:51 Dose: 400 mg Documented by: Methadone HCl () 30 mg PO TID [facility] Last Admin: 07/11/19 14:01 Dose: 30 mg Documented by: Nystatin (Mycostatin) 1 applic TOPICAL BID [facility]; Protocol Last Admin: 07/11/19 09:52 Dose: 1 applicatio Documented by: Pantoprazole Sodium (Protonix) 40 mg PO BID [facility] Last Admin: 07/11/19 09:51 Dose: 40 mg Documented by: Sodium Chloride () 10 - 40 ml IV UD PRN PRN Reason: SALINE FLUSH Last Admin: 07/11/19 05:16 Dose: 10 ml Documented by: Medical Necessity - Tobacco Use Smoking Status: Former smoker Tobacco Use: Non-smoker Route of nutrition/ use of supplements: [] Nutritional Intake: [] IV Site: [] Poon Catheter: [] - Assessment/Plan Antibiotics: [] Assessment/Plan: [] Active and Suspected Problems (Last Reviewed 07/04/19 @ 14:[address] Pawan Gunter MD) Viral illness (Acute) Severe sepsis (Acute) severe sepsis, fever, cough, SOB, lymphopenia, CT chest with bilat ground glass changes, lactic acidosis. Resp pcr panel neg. Bacterial cxs remain neg. Had worsening hypoxia, intubated 07/05, started on 5 day course of plaquenil. Was able to diurese, now much improved and off vent. Repeat covid being sent off of bronchial wash and was neg. COVID has been ruled out. Improving, off of abx. Will follow as needed. Please call with any questions.
[2019-07-11] MEDS: MELATONIN 10 MG TABLET PO (22:46)
[2019-07-12] VITALS (7 sets, daily range): BP systolic 98–126; BP diastolic 69–71; PULSE 78–97; RESP 17–18; TEMP 36.8–37.1; O2SAT 88–96
[2019-07-12] MEDS: Gabapentin 300 MG Capsule PO ×2 (05:35→13:20)
[2019-07-12] MEDS: Methadone 10 MG Tablet 30 MG PO ×2 (05:35→13:20)
[2019-07-12] MEDS: Furosemide 40 MG Tablet PO ×2 (08:50→16:54)
[2019-07-12] MEDS: Magnesium Oxide 400 MG Tablet PO (08:50)
[2019-07-12] MEDS: Enoxaparin 40 MG/0.4 ML Syringe SC (08:50)
[2019-07-12] MEDS: Pantoprazole Sodium 40 MG Tablet PO (08:50)
[2019-07-12] MEDS: Nystatin Ointment 1 APPLIC TOPICAL (08:50)
[2019-07-12] MEDS: dexAMETHasone 4 MG Tablet 2 MG PO (08:50)
--- NOTE | 2019-07-12 10:14 | PCM.TXEXTCAR ---
- Diet 07/09/19 10:07 Diet: Regular Diet Is pt able to select menu?: Yes Diet Comments: 120mL Ensure Enlive w/ meals - Routine Orders/Code Status O2 Liters per Minute: 1-2 O2 Frequency: Continuous Keep PO Greater than or Equal to (%): 92 Code Status: Full Code - Suggestions for Active Care Change Position every (hours): 3 Hours to sit in a chair: 2 Times a day to sit in chair: 3 - Therapies Weight Bearing: Weight bearing as tolerated Physical Therapy: Eval and Treat Occupational Therapy: Eval and Treat - Allergies/Procedures Done in Hospital Allergies/Adverse Reactions: Allergies povidone-iodine [From Betadine] Adverse Reaction (Severe, Verified 07/04/19 10:51) Other BROKE OUT INTO BLISTERS soap [From Betadine] Adverse Reaction (Severe, Verified 07/04/19 10:51) Other BROKE OUT INTO BLISTERS - Type of Care/Length of Stay Estimated LOS: Convalescent Care Less Than 30 days Type of Care Needed: Skilled Rehab Potential: Fair Prognosis: Fair - Additional Orders/Day of Discharge H&P will serve as current which was dated: 07/04/19 Day of Discharge: 07/12/19 - Dietary and Speech Recommendations Dietitian Recommendations/Changes: Continue regular diet. As PO intake improves at meals, recommend diet change to cardiac/low sodium. Will provide Ensure Enlive w/ meals. - Follow Up Care Primary Care Physician: Liban Gomez DO [Primary Care Provider] - Please follow up with your Primary Care Physician in: 1 WEEK. Please Follow Up With: Cristian Aguillon MD When: Please call his office.
--- NOTE | 2019-07-12 14:34 | PN_ITS ---
Patient Problems: Active and Suspected Problems (Last Reviewed 07/04/19 @ 14:[address] 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 Patient seen and examined. No acute events overnight. Today, she has no complaints. Denied shortness of breath or cough. Denied abdominal pain, nausea or vomiting. Her vital signs are stable, remained on oxygen at 1.5 L. - Physical Exam Vitals/I&O's: Vital Signs Temp Pulse Resp BP Pulse Ox 98.2 F 83 18 112/71 88 07/12/19 08:45 07/12/19 12:29 07/12/19 08:45 07/12/19 08:45 07/12/19 09:51 Oxygen Flow Rate (L/min) [ 1.5 AMBULATION with Oxygen] Oxygen Flow Rate (L/min) 1 Oxygen Delivery Method Nasal Cannula Weight: 176 lb 12.972 oz Body Mass Index (BMI) 27.7 Intake and Output for Last 24 Hours 07/10/19 07/11/19 07/12/19 23:59 23:59 23:59 Intake Total 1500 / 1800 1135 / 1135 520 / 520 Output Total 2100 / 2800 1450 / 1450 Balance -600 / -1000 -315 / -315 520 / 520 General: Alert, Oriented x3, Cooperative, No apparent distress HEENT: Atraumatic, PERRLA, EOMI, Normocephalic Oral: Moist Mucosa, No Gingival or Mucosal Lesions/ Ulcerations Neck: Supple, No JVD, Negative Carotid Bruits, Trachea Midline, Thyroid Normal Size and Texture Lungs: Clear to auscultation, Normal air movement, No rhonchi, No wheeze, No rales, Diminished Cardiovascular: Regular rate, Regular Rhythm, Normal S1, Normal S2, PMI Normal Abdomen: Bowel Sounds Present, Soft, Non Tender, Non-Distended, No Hepato- splenomegaly Extremities: No clubbing, No cyanosis, No edema Skin: No rashes, No breakdown Lymphatic: No Cervical, Supraclavicular, or Inguinal Adenopathy Neurological: Cranial nerves II-XII grossly intact, Neuro grossly intact Psych/Mental Status: Normal Affect, Appropriate Microbiology Past 72 Hours 07/09/19 17:00 Stool C. difficile DNA Amplification - Final 07/04/19 10:30 Blood Culture (Wb) - Right Forearm Blood Culture - Final No growth in 5 days. 07/04/19 10:25 Blood Culture (Wb) - Anticubital Right Blood Culture - Final No growth in 5 days. Current Medications Acetaminophen (Tylenol) 650 mg PO Q4H PRN PRN PRN Reason: HEADACHE/FEVER (T>102.5) Last Admin: 07/10/19 11:21 Dose: 650 mg Documented by: Albuterol Sulfate (Ventolin Aerosols) 2.5 mg INHALATION Q2H PRN PRN PRN Reason: Shortness of Breath/Wheezing Last Admin: 07/06/19 11:10 Dose: 2.5 mg Documented by: Dexamethasone (Decadron) 2 mg PO DAILY [facility] Last Admin: 07/12/19 08:50 Dose: 2 mg Documented by: Enoxaparin Sodium (Lovenox) 40 mg SC DAILY [facility] Last Admin: 07/12/19 08:50 Dose: 40 mg Documented by: Furosemide (Lasix) 40 mg PO BID@1000,1800 [facility] Last Admin: 07/12/19 08:50 Dose: 40 mg Documented by: Gabapentin (Neurontin) 300 mg PO TID [facility] Last Admin: 07/12/19 13:20 Dose: 300 mg Documented by: Hydromorphone HCl (Dilaudid Tablet) 4 mg PO TID PRN PRN Reason: Pain Score 1-10/10 Last Admin: 07/11/19 08:42 Dose: 4 mg Documented by: Magnesium Oxide (Mag-Ox 400) 400 mg PO BID [facility] Last Admin: 07/12/19 08:50 Dose: 400 mg Documented by: Melatonin (Melatonin) 10 mg PO QHS [facility] Last Admin: 07/11/19 22:46 Dose: 10 mg Documented by: Methadone HCl () 30 mg PO TID [facility] Last Admin: 07/12/19 13:20 Dose: 30 mg Documented by: Nystatin (Mycostatin) 1 applic TOPICAL BID [facility]; Protocol Last Admin: 07/12/19 08:50 Dose: 1 applicatio Documented by: Pantoprazole Sodium (Protonix) 40 mg PO BID [facility] Last Admin: 07/12/19 08:50 Dose: 40 mg Documented by: Sodium Chloride () 10 - 40 ml IV UD PRN PRN Reason: SALINE FLUSH Last Admin: 07/11/19 05:16 Dose: 10 ml Documented by: Medical Necessity - Tobacco Use Smoking Status: Former smoker Tobacco Use: Non-smoker Assessment/Plan All Active Problems (Last Reviewed 07/04/19 @ 14:[address] Pawan Gunter MD) Viral illness (Acute) Severe sepsis (Acute) This is a 63 years old female patient presented to the emergency room because of shortness of breath, found to have acute probably viral pneumonia with suspected COVID-19 infection, complicated by acute hypoxic respiratory failure status post extubation and sepsis and also found to have acute on chronic anemia and probable acute combined CHF. #1 acute probably viral pneumonia/sepsis: Completed course of IV Zosyn, this was discontinued yesterday. COVID-19 testing done twice and came back negative. It is ruled out. Hydroxychloroquine discontinued as well. She has been afebrile, other vital signs are stable. Respiratory panel for viruses were negative. Pneumococcal and Legionella antigen were negative. Blood and urine cultures showed no growth. Sputum culture revealed presumptive Majo albicans. Bronchial wash revealed presumptive Majo albicans. Plan to continue same treatment, transfer to PCU. #2 acute hypoxic respiratory failure: Multifactorial secondary to pneumonia, acute on chronic anemia as well as CHF. Status post extubation. Respiratory status stabilized, pulse ox is maintained on 2 L. #3 acute on chronic anemia: Attributed to history of cancer and being on chemotherapy. Also, stool for occult blood was positive. She is on PPI. No evidence of active bleeding this time. Most recent hemoglobin is 11.5 g/dL, improved. Plan to monitor. 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 She does have good urine output. 2D echocardiogram revealed dilated left ventricle, ejection fraction 50%, severely enlarged left atrium, RVSP 58 consistent with moderate pulmonary hypertension. Kidney function remained stabl e. Plan switch Lasix to p.o.. #5 history of metastatic breast cancer: Status post surgery and chemotherapy. #6 GERD: Continue PPI. #7 DVT prophylaxis: Subcu Lovenox. This note was generated with [employer] software. It may contain incorrect words, spelling, and punctuation that were not noted in checking the note before signing.
--- NOTE | 2019-07-12 14:36 | DS.PCM_ITS ---
Discharge Date and Diagnosis Date of Admission: 07/04/19 Date of Discharge: 07/12/19 - Primary Discharge Diagnosis Active and Suspected Problems (Last Reviewed 07/04/19 @ 14:[address] Pawan Gunter MD) #1 acute probably viral pneumonia/sepsis. COVID-19 negative. #2 acute hypoxic respiratory failure. #3 acute on chronic anemia. #4 acute on chronic combined systolic and diastolic CHF. - Secondary Discharge Diagnosis Chronic Problems (Last Reviewed 07/04/19 @ 14:[address] 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 per cath 10/22 Hx of breast cancer (Chronic) Hospital Course and Treatment Imaging Results: Clinical Impression(s) from Imaging Studies Chest CTA 07/04/19 10:14 IMPRESSION: Diffuse groundglass appearance involving the right upper lobe as well as right middle lobe and areas of the right lower lobe with evidence of a bronchiectasis and scarring in the right lower lobe. Mild degree of increased ground glass appearance in the left upper lobe. 1. Metastasis. Electronically Signed: Steve Zelaya, at 12:14 EDT , Service support , Chest X-Ray 07/06/19 15:30 IMPRESSION: Findings suggestive of pulmonary edema. The tip of the endotracheal tube is 3.4 cm proximal to the margarito. Nasogastric tube is seen within the body of the stomach. Electronically Signed: Steve Zelaya, at 15:53 EDT , Service support , Chest X-Ray 07/07/19 07:01 IMPRESSION: Stable exam. Electronically Signed: Osvaldo Vicente, at 10:20 EDT Tel , Service support , Dr. Darden/Dr. Sue, critical care. Dr. Leggett, infectious disease. Operations: None Procedures: 2-D Echocardiogram, EKG Summary of Care Provided: Patient seen and examined on day of discharge and appeared to be stable to be discharged to assisted facility. She remained asymptomatic, denied any complaints. She remained on 2 L of oxygen. Other vital signs were stable. This is a 63 years old female patient presented to the emergency room because of shortness of breath, found to have acute probably viral pneumonia , complicated by acute hypoxic respiratory failure status post extubation and sepsis and also found to have acute on chronic anemia and acute on chronic combined CHF. #1 acute probably viral pneumonia/sepsis: She was treated with IV vancomycin and Zosyn as well as hydroxychloroquine because there was a high suspicion of COVID- 19 . She was intubated for acute hypoxic respiratory failure. She tested negative twice for COVID-19. Respiratory panel for viruses were negative. Pneumococcal and Legionella antigen were negative. Blood and urine cultures showed no growth. Sputum culture revealed presumptive Majo albicans. Bronchial wash revealed presumptive Majo albicans. Patient discharged to assisted facility, no antibiotic prescribed upon discharge and she completed course of antibiotics. #2 acute hypoxic respiratory failure: Multifactorial secondary to pneumonia, acute on chronic anemia as well as CHF. Patient was intubated, remained on mechanical ventilation for 2 days and then was extubated. After extubation, she did well and her oxygen requirement decreased down to 2 L. Upon discharge, she required 1 to 2 L of oxygen. #3 acute on chronic anemia: Attributed to history of cancer and being on chemotherapy. Also, stool for occult blood was positive. She received a total of 3 units of packed RBCs. Hemoglobin was as low as 6.7 g/dL. After blood roman sfusion, hemoglobin was 11.5 g/dL upon discharge. #4 acute combined systolic and diastolic CHF: Treated with IV Lasix. She does have good urine output. 2D echocardiogram revealed dilated left ventricle, ejection fraction 50%, severely enlarged left atrium, RVSP 58 consistent with moderate pulmonary hypertension. Kidney function remained stable. Patient discharged on Lasix 40 mg p.o. daily. #5 history of metastatic breast cancer: Status post surgery and chemotherapy. Recommended follow-up with oncology as outpatient. Patient discharged to assisted facility in a stable condition, completed course of antibiotics, no antibiotics given upon discharge, discharged on Lasix 40 mg p.o. daily, continued on her previous home medications without any changes including her pain medicines, discharged on oxygen at 1 to 2 L, recommended follow-up with PCP in 1 week and follow-up with oncology and requested to call her oncologist office for follow-up appointment. This note was generated with [employer] dictation software. It may contain incorrect words, spelling, and punctuation that were not noted in checking the note before signing. - Physical Exam Vitals/I&O's: Vital Signs Temp Pulse Resp BP Pulse Ox 98.2 F 83 18 112/71 88 07/12/19 08:45 07/12/19 12:29 07/12/19 08:45 07/12/19 08:45 07/12/19 09:51 Oxygen Flow Rate (L/min) [ 1.5 AMBULATION with Oxygen] Oxygen Flow Rate (L/min) 1 Oxygen Delivery Method Nasal Cannula Weight: 176 lb 12.972 oz Body Mass Index (BMI) 27.7 Intake and Output for Last 24 Hours 07/10/19 07/11/19 07/12/19 23:59 23:59 23:59 Intake Total 1500 / 1800 1135 / 1135 520 / 520 Output Total 2100 / 2800 1450 / 1450 Balance -600 / -1000 -315 / -315 520 / 520 General: Alert, Oriented x3, Cooperative, No apparent distress HEENT: Atraumatic, PERRLA, EOMI, Normocephalic Oral: Moist Mucosa, No Gingival or Mucosal Lesions/ Ulcerations Neck: Supple, No JVD, Negative Carotid Bruits, Trachea Midline, Thyroid Normal Size and Texture Lungs: Clear to auscultation, No rhonchi, No wheeze, No rales, Diminished Cardiovascular: Regular rate, Regular Rhythm, Normal S1, Normal S2, PMI Normal Abdomen: Bowel Sounds Present, Soft, Non Tender, Non-Distended, No Hepato- splenomegaly Extremities: No clubbing, No cyanosis, No edema Skin: No rashes, No breakdown Lymphatic: No Cervical, Supraclavicular, or Inguinal Adenopathy Neurological: Cranial nerves II-XII grossly intact, Neuro grossly intact Psych/Mental Status: Normal Affect, Appropriate Microbiology Past 72 Hours 07/09/19 17:00 Stool C. difficile DNA Amplification - Final 07/04/19 10:30 Blood Culture (Wb) - Right Forearm Blood Culture - Final No growth in 5 days. 07/04/19 10:25 Blood Culture (Wb) - Anticubital Right Blood Culture - Final No growth in 5 days. Current Medications Acetaminophen (Tylenol) 650 mg PO Q4H PRN PRN PRN Reason: HEADACHE/FEVER (T>102.5) Last Admin: 07/10/19 11:21 Dose: 650 mg Documented by: Albuterol Sulfate (Ventolin Aerosols) 2.5 mg INHALATION Q2H PRN PRN PRN Reason: Shortness of Breath/Wheezing Last Admin: 07/06/19 11:10 Dose: 2.5 mg Documented by: Dexamethasone (Decadron) 2 mg PO DAILY [facility] Last Admin: 07/12/19 08:50 Dose: 2 mg Documented by: Enoxaparin Sodium (Lovenox) 40 mg SC DAILY [facility] Last Admin: 07/12/19 08:50 Dose: 40 mg Documented by: Furosemide (Lasix) 40 mg PO BID@1000,1800 [facility] Last Admin: 07/12/19 08:50 Dose: 40 mg Documented by: Gabapentin (Neurontin) 300 mg PO TID [facility] Last Admin: 07/12/19 13:20 Dose: 300 mg Documented by: Hydromorphone HCl (Dilaudid Tablet) 4 mg PO TID PRN PRN Reason: Pain Score 1-10/10 Last Admin: 07/11/19 08:42 Dose: 4 mg Documented by: Magnesium Oxide (Mag-Ox 400) 400 mg PO BID [facility] Last Admin: 07/12/19 08:50 Dose: 400 mg Documented by: Melatonin (Melatonin) 10 mg PO QHS [facility] Last Admin: 07/11/19 22:46 Dose: 10 mg Documented by: Methadone HCl () 30 mg PO TID [facility] Last Admin: 07/12/19 13:20 Dose: 30 mg Documented by: Nystatin (Mycostatin) 1 applic TOPICAL BID [facility]; Protocol Last Admin: 07/12/19 08:50 Dose: 1 applicatio Documented by: Pantoprazole Sodium (Protonix) 40 mg PO BID [facility] Last Admin: 07/12/19 08:50 Dose: 40 mg Documented by: Sodium Chloride () 10 - 40 ml IV UD PRN PRN Reason: SALINE FLUSH Last Admin: 07/11/19 05:16 Dose: 10 ml Documented by: Home Medications: Medications to take at Discharge Duloxetine Hcl [Cymbalta] 60 mg PO DAILY 02/17/18 Hydromorphone HCl [Dilaudid] 4 mg PO TID PRN PRN 01/13/19 Methadone HCl 30 mg PO TID 01/13/19 Omeprazole 40 mg PO DAILY 01/13/19 Pyridoxine HCl (Vitamin B6) [Vitamin B-6] 100 mg PO DAILY 01/13/19 Dexamethasone 2 mg PO DAILY 07/04/19 Ergocalciferol (Vitamin D2) [Vitamin D2] 50,000 unit PO UD 07/04/19 Iron Polysaccharide Complex [Ferrex 150] 150 mg PO DAILY 07/04/19 Melatonin 10 mg PO QHS 07/04/19 Palbociclib [Ibrance] 100 mg PO UD 07/04/19 Senna [Senokot] 2 tab PO DAILY 07/04/19 Furosemide [Lasix] 40 mg PO DAILY #30 tab 07/12/19 Following Prescrptions Were Given to Patient: Furosemide [Lasix] 40 mg PO DAILY #30 tab Prescription Printed Primary Care Physician: Liban Gomez DO [Primary Care Provider] - Please follow up with your Primary Care Physician in: 1 WEEK. Please Follow Up With: Cristian Aguillon MD When: Please call his office. Disposition: Detention facility Minutes spent on discharge:: 34 Patient Condition:: Stable Medical Necessity - Tobacco Use Smoking Status: Former smoker Tobacco Use: Non-smoker Meaningful Use Info Meaningful Use Diagnoses (Choose all that apply): CHF - CHF АЛЕКСАНДР/ARB ordered at discharge?: No Reason АЛЕКСАНДР/ARB not ordered?: Drug Interaction Documented LVEF (%): 50 Inpatient E&M: 41416 Disch Hosp
--- NOTE | 2019-07-12 15:37 | CASEMGMT ---
SW updated patient that we are waiting on her insurance to approve her to go to [facility]. Green sheet on chart. Plan: d/c to [facility] pending pre-cert. Donya QUEVEDO MSW
--- NOTE | 2019-07-12 16:38 | PCA ---
Received a call from Lina in admissions at [facility], she stated that they received precert for patient good for today only.
--- NOTE | 2019-07-12 17:34 | NURSING ---
Report called to darren Babin
== END 2019-07-12 18:02 | disposition skilled nursing facility (03) | DRG 871 ==
LOC: ED 11:10 → MS2 14:34 → ICU 07-06 15:50 → PCU 07-11 13:26
PROVIDERS: Family Medicine; Internal Medicine; Internal Medicine Critical Care Medicine; Internal Medicine Infectious Disease; Admitting Provider Internal Medicine; Emergency Provider Emergency Medicine; PCP Family Medicine; Visit Provider Hospitalist
DX: A41.89 Other specified sepsis (principal); J96.01 Acute respiratory failure with hypoxia; I50.43 Acute on chronic combined systolic (congestive) and diastolic (congestive) heart failure; J12.9 Viral pneumonia, unspecified; C79.51 Secondary malignant neoplasm of bone; R65.20 Severe sepsis without septic shock; C50.919 Malignant neoplasm of unspecified site of unspecified female breast; E78.5 Hyperlipidemia, unspecified; D63.0 Anemia in neoplastic disease; D64.81 Anemia due to antineoplastic chemotherapy; T45.1X5A Adverse effect of antineoplastic and immunosuppressive drugs, initial encounter; Z86.79 Personal history of other diseases of the circulatory system; E83.51 Hypocalcemia; E83.42 Hypomagnesemia; Z87.891 Personal history of nicotine dependence
CPT/HCPCS: 31500; 31720; 36415; 36569; 36600; 71045; 71275; 80048; 80053; 80202; 81001; 82274; 82550; 82803; 83605; 83735; 83880; 84100; 84478; 84484; 85014; 85018; 85025; 85610; 85730; 86850; 86900; 86901; 86920; 86922; 87040; 87070; 87086; 87205; 87449; 87493; 87633; 87635; 87641; 87804; 93005; 93306; 94002; 94003; 94640; 94660; 97110; 97116; 97162; 97167; 97530; 97535; 97802; 97803; 99251; 99285; J2997; J7030; J7050; P9016; Q9967; A4216; G0463; J0696; J1940; U0004